=== PATIENT | male | born 1945 | race Caucasian/White ===

== ENCOUNTER 2023-07-25 12:42 | Inpatient (IN) ==
--- NOTE | 2023-07-25 13:04 | Emergency Department Note ---
Impression & Plan Atrial fibrillation with RVR, Elevated troponin, Presence of stent in coronary artery in patient with coronary artery disease, HTN (hypertension), History of left knee replacement ED Provider Note NAME: BERNY OSPINA AGE: 77 SEX: M : 1945 ARRIVES VIA: Walk-In INFORMANT: Patient, ED PROVIDER(S): Carlos A Castellano MD CHIEF COMPLAINT: Chest discomfort, irregular heartbeat MEDICAL DECISION MAKING: Patient presents with chest discomfort and irregular heartbeat. The patient does have A-fib with RVR. Patient does take home metoprolol patient was ordered IV metoprolol, heparin drip as well as IV fluids after reviewing the patient's blood work Blood work shows normal white count mild anemia hemoglobin 12.8 with normal platelet count. Kidney function was unremarkable but with prerenal azotemia. BSG is not elevated. Troponin initially 27.7. This may be demand related patient does not have any chest pain currently at the bedside. Chest x- ray is clear. Patient answered the on-call hospitalist service after conveying the recommendations of the patient. Patient was admitted by Dr. Kelley. Critical Care: I have personally spent 35 minutes of critical care time in direct management of this patient. This includes bedside care, interpretation of diagnostic studies, and testing, discussion with consultants, patient, and family members, and other require inpatient management activities. This 35 minutes is in excess of all separately billable procedures. Discussion w/ other healthcare providers: Dr. Kelley inpatient medicine service Prior /Outside records reviewed: I reviewed the patient's outpatient medication list through his epic records from [facility] Differential diagnosis: Cardiac ischemia, aortic dissection, pulmonary embolism, pneumothorax, pneumonia, pericarditis, myocarditis, GERD, cholecystitis, pancreatitis, musculoskeletal, as well as other pathologies were considered. Diagnostics, as interpreted by me: ECG: A-fib with RVR, rate 145, normal QRS, left axis deviation no obvious ST elevations nonspecific ST wave abnormality noted. Cardiac monitoring: An order was placed for continuous cardiac monitoring. The monitor shows a rate of 122 with tachycardic and irregular irregular rhythm. Patient was placed on pulse oximetry Medical decision rules: [id number] score Imaging studies: I informally interpreted the patient's chest x-ray which does not show obvious pneumothorax with formal report to follow. HPI: Patient presents due to concern for chest discomfort as well as irregular heartbeat. Patient states that last evening he seemed to have some discomfort that his chest that he described as "almost like I was coming down with a chest cold. Patient denies any falls or trauma. The patient denies any cough or fever. Patient has no leg swelling or calf pain. The patient relates that he did have a left TKA completed about 6 weeks ago. The patient recently moved to the area and does obtain the majority of his care through [facility]. The brandin liu had followed with a Dr. Glez in the past with cardiology. Patient does have a prior known history of CAD status post stent placement. He does take baby aspirin PAST MEDICAL HISTORY: CAD, hypertension, hyperlipidemia PAST SURGICAL HISTORY: Coronary angioplasty status post stent SOCIAL HISTORY: Denies alcohol tobacco or drug use. HOME MEDICATIONS: See Below ALLERGIES: See Below VITALS: See Below PHYSICAL EXAMINATION: GENERAL: NAD, non-toxic. EYE EXAM: Normal conjunctiva. PERRL, no anisocoria and EOM's grossly intact w/o pain. OROPHARYNX: Moist mucus membranes, grossly normal dentition. NECK: Supple, no nuchal rigidity, no adenopathy, non-tender. No signs of meningismus. FROM of the neck with good chin to chest and neck extension. No stridor. LUNGS: Clear to auscultation. Normal chest wall mechanics. HEART: Regular irregular and tachycardic, no MRG. ABDOMEN: Abdomen soft, non-tender, no masses, no rebound or guarding. BACK: No CVA TTP. SKIN: No rashes and no bruising. UPPER EXTREMITIES: Upper extremities are grossly normal. LOWER EXTREMITIES: Grossly normal, no edema. Negative Homans' sign bilaterally. NEURO EXAM: A&O x3, cranial nerves II-XII grossly intact, normal speech, moves all 4 extremities. Past Med/Surg History Medical History Atrial fibrillation with RVR BPH (benign prostatic hyperplasia) Elevated troponin HTN (hypertension) Social History Smoking Status: Never smoker Second Hand Exposure: No; Do You Dip or Chew Tobacco: No; Tobacco Cessation Education Requested by Patient: No Hx Alcohol Use: No Hx Substance Use: No Preferred Language: Azeri Communication Ability: Effective Proof Coins Inspector Required: No Beliefs That Will Affect Care: None Current Living Situation: Spouse Other Information That Helps Us Care for You: No Feels Safe at Home: Yes Safety Concerns: Feels Safe At This Time Assistive Devices: Cane and Walker Allergies Allergies Allergy/AdvReac Type Severity Reaction Status Date / Time Penicillins AdvReac Headache Verified 07/25/23 17:54 Home Meds Home Medications Medication Instructions Recorded Confirmed atorvastatin 40 mg tablet 40 mg PO DAILY 07/25/23 07/25/23 celecoxib 200 mg capsule 200 mg PO BID 07/25/23 07/25/23 finasteride 5 mg tablet 5 mg PO DAILY 07/25/23 07/25/23 gabapentin 300 mg capsule 300 mg PO TID 07/25/23 07/25/23 isosorbide mononitrate 60 mg 60 mg PO DAILY 07/25/23 07/25/23 tablet,extended release 24 hr losartan 50 mg tablet 50 mg PO DAILY 07/25/23 07/25/23 metoprolol succinate 25 mg 25 mg PO DAILY 07/25/23 07/25/23 tablet,extended release 24 hr omeprazole 20 mg capsule,delayed 20 mg PO DAILY 07/25/23 07/25/23 release oxycodone 5 mg tablet See Rx Instructions .Route .COMPLEX 07/25/23 07/25/23 tamsulosin 0.4 mg capsule 0.4 mg PO DAILY 07/25/23 07/25/23 Results & Data (ED) Vital Signs Vital Signs - 24 hr 07/25/23 12:45 07/25/23 13:08 07/25/23 13:12 Temperature 36.5 C Temperature Source Temporal Artery Scan Pulse Rate 92 H 132 H Pulse Rate from SpO2 Sensor Respiratory Rate 18 Respiratory Effort / Characteristics Non-Labored Respiratory Depth Normal Respiratory Pattern Regular Blood Pressure 132/79 Blood Pressure Mean 96 Pulse Oximetry 97 95 Oxygen Delivery Method Room Air Room Air Oxygen Flow Rate 0 Sepsis Recent Fever Within 48 Hours No Sepsis New/Unexplained Change in Mental Status N/A Sepsis Action Taken by Nursing No Action Required 07/25/23 13:12 07/25/23 13:30 07/25/23 13:31 Temperature Temperature Source Pulse Rate 143 H Pulse Rate from SpO2 Sensor 86 Respiratory Rate 15 Respiratory Effort / Characteristics Respiratory Depth Respiratory Pattern Blood Pressure 95/64 L Blood Pressure Mean 76 Pulse Oximetry 96 96 Oxygen Delivery Method Room Air Room Air Oxygen Flow Rate Sepsis Recent Fever Within 48 Hours Sepsis New/Unexplained Change in Mental Status Sepsis Action Taken by Nursing 07/25/23 13:31 07/25/23 13:45 07/25/23 14:00 Temperature Temperature Source Pulse Rate 154 H 105 H 102 H Pulse Rate from SpO2 Sensor 79 85 82 Respiratory Rate 19 16 16 Respiratory Effort / Characteristics Respiratory Depth Respiratory Pattern Blood Pressure Blood Pressure Mean Pulse Oximetry 96 96 96 Oxygen Delivery Method Room Air Oxygen Flow Rate Sepsis Recent Fever Within 48 Hours Sepsis New/Unexplained Change in Mental Status Sepsis Action Taken by Nursing 07/25/23 14:01 07/25/23 14:01 07/25/23 14:15 Temperature Temperature Source Pulse Rate 113 H 115 H Pulse Rate from SpO2 Sensor 87 78 Respiratory Rate 17 19 Respiratory Effort / Characteristics Respiratory Depth Respiratory Pattern Blood Pressure 111/75 Blood Pressure Mean 76 Pulse Oximetry 93 95 Oxygen Delivery Method Oxygen Flow Rate Sepsis Recent Fever Within 48 Hours Sepsis New/Unexplained Change in Mental Status Sepsis Action Taken by Nursing 07/25/23 14:20 07/25/23 14:20 07/25/23 14:30 Temperature Temperature Source Pulse Rate 94 H Pulse Rate from SpO2 Sensor 102 H Respiratory Rate 21 Respiratory Effort / Characteristics Respiratory Depth Respiratory Pattern Blood Pressure 127/69 110/73 Blood Pressure Mean 80 91 Pulse Oximetry 96 Oxygen Delivery Method Oxygen Flow Rate Sepsis Recent Fever Within 48 Hours Sepsis New/Unexplained Change in Mental Status Sepsis Action Taken by Nursing 07/25/23 14:30 07/25/23 14:45 07/25/23 14:45 Temperature Temperature Source Pulse Rate 103 H 92 H Pulse Rate from SpO2 Sensor 99 H 82 Respiratory Rate 23 24 Respiratory Effort / Characteristics Respiratory Depth Respiratory Pattern Blood Pressure 114/72 Blood Pressure Mean 94 Pulse Oximetry 96 97 Oxygen Delivery Method Oxygen Flow Rate Sepsis Recent Fever Within 48 Hours Sepsis New/Unexplained Change in Mental Status Sepsis Action Taken by Nursing 07/25/23 15:00 07/25/23 15:00 Temperature Temperature Source Pulse Rate 100 H Pulse Rate from SpO2 Sensor 101 H Respiratory Rate 14 Respiratory Effort / Characteristics Respiratory Depth Respiratory Pattern Blood Pressure 106/77 Blood Pressure Mean 86 Pulse Oximetry 97 Oxygen Delivery Method Oxygen Flow Rate Sepsis Recent Fever Within 48 Hours Sepsis New/Unexplained Change in Mental Status Sepsis Action Taken by Group Home Medications Current Medication List: was personally reviewed by me Laboratory Data Attestation: I reviewed the patient's lab results. 07/25/23 12:55 07/25/23 12:55 Lab Results 07/25/23 07/25/23 07/25/23 Range/Units 12:55 12:55 12:55 WBC 9.52 (4.8-10.8) K/ul RBC 4.26 L (4.70-6.10) M/uL Hgb 12.8 L (14.0-18.0) g/dl Hct 37.5 L (42.0-52.0) % MCV 88.0 (80.0-100.0) fL MCH 30.0 (25.0-34.0) pg MCHC 34.1 (32.0-36.0) g/dL RDW Std Deviation 44.2 (36.4-46.3) fL RDW Coeff of Giovanni 13.7 (11.5-14.5) % Plt Count 359 (130-400) K/uL MPV 9.7 (9.4-12.4) fL Immature Gran % (Auto) 0.2 % Neut % (Auto) 64.0 % Lymph % (Auto) 21.4 % Fannin % (Auto) 9.9 % Eos % (Auto) 3.8 % Baso % (Auto) 0.7 % Neut # (Auto) 6.09 (1.40-6.50) K/uL Lymph # (Auto) 2.04 (1.20-3.40) K/uL Fannin # (Auto) 0.94 H (0.11-0.59) K/uL Eos # (Auto) 0.36 (0.00-0.50) K/uL Baso # (Auto) 0.07 (0.00-0.20) K/uL Immature Gran # (Auto) 0.02 (0.01-0.20) K/uL PT 10.9 (9.0-12.0) Seconds INR 1.0 (0.9-1.1) APTT 26.4 (21.0-31.0) Seconds PTT Ratio 0.9 Sodium 138 (136-145) mmol/L Potassium 4.0 (3.5-5.1) mmol/L Chloride 108 H (98-107) mmol/L Carbon Dioxide 24 (21-32) mmol/L Anion Gap 6 (3-11) BUN 26 H (6-23) mg/dl Creatinine 1.34 (0.6-1.4) mg/dl Est Cr Clr Drug Dosing 50.8 ml/min Est GFR ( Amer) 58.0 ml/min Est GFR (Non-Af Amer) 50.0 ml/min BUN/Creatinine Ratio 19.4 (10-20) Glucose 130 H (70-99(Fasting)) mg/dl Calcium 9.5 (8.6-10.3) mg/dl Magnesium (1.7-2.4) mg/dl Total Bilirubin 0.6 (0.2-1.0) mg/dl AST 16 (13-39) U/L ALT 13 (7-52) U/L Alkaline Phosphatase 95 (34-104) U/L Troponin I High Sens 27.7 H (0-20) pg/ml Total Protein 7.0 (6.0-8.3) gm/dl Albumin 4.1 (3.4-5.0) gm/dl Globulin 2.9 (2.5-4.0) gm/dl Albumin/Globulin Ratio 1.4 (0.9-2) 07/25/23 Range/Units 15:04 WBC (4.8-10.8) K/ul RBC (4.70-6.10) M/uL Hgb (14.0-18.0) g/dl Hct (42.0-52.0) % MCV (80.0-100.0) fL MCH (25.0-34.0) pg MCHC (32.0-36.0) g/dL RDW Std Deviation (36.4-46.3) fL RDW Coeff of Giovanni (11.5-14.5) % Plt Count (130-400) K/uL MPV (9.4-12.4) fL Immature Gran % (Auto) % Neut % (Auto) % Lymph % (Auto) % Fannin % (Auto) % Eos % (Auto) % Baso % (Auto) % Neut # (Auto) (1.40-6.50) K/uL Lymph # (Auto) (1.20-3.40) K/uL Fannin # (Auto) (0.11-0.59) K/uL Eos # (Auto) (0.00-0.50) K/uL Baso # (Auto) (0.00-0.20) K/uL Immature Gran # (Auto) (0.01-0.20) K/uL PT (9.0-12.0) Seconds INR (0.9-1.1) APTT (21.0-31.0) Seconds PTT Ratio Sodium (136-145) mmol/L Potassium (3.5-5.1) mmol/L Chloride (98-107) mmol/L Carbon Dioxide (21-32) mmol/L Anion Gap (3-11) BUN (6-23) mg/dl Creatinine (0.6-1.4) mg/dl Est Cr Clr Drug Dosing ml/min Est GFR ( Amer) ml/min Est GFR (Non-Af Amer) ml/min BUN/Creatinine Ratio (10-20) Glucose (70-99(Fasting)) mg/dl Calcium (8.6-10.3) mg/dl Magnesium 1.9 (1.7-2.4) mg/dl Total Bilirubin (0.2-1.0) mg/dl AST (13-39) U/L ALT (7-52) U/L Alkaline Phosphatase (34-104) U/L Troponin I High Sens 36.4 H (0-20) pg/ml Total Protein (6.0-8.3) gm/dl Albumin (3.4-5.0) gm/dl Globulin (2.5-4.0) gm/dl Albumin/Globulin Ratio (0.9-2) Administered Medications Apixaban (Apixaban 5 Mg Tablet) 5 mg PO Q12H JORGE L Stop: 08/25/23 06:59 Last Admin: 07/26/23 06:50 Dose: 5 mg Documented By: TNK Atorvastatin Calcium (Atorvastatin 40 Mg Tab) 40 mg PO DAILY JORGE L Stop: 08/25/23 08:59 Last Admin: 07/26/23 08:44 Dose: 40 mg Documented By: CA Finasteride (Finasteride 5 Mg Tab) 5 mg PO DAILY JORGE L Stop: 08/25/23 08:59 Last Admin: 07/26/23 08:44 Dose: 5 mg Documented By: CA Gabapentin (Gabapentin 300 Mg Cap) 300 mg PO TID JORGE L Stop: 08/24/23 20:59 Last Admin: 07/26/23 08:43 Dose: 300 mg Documented By: Admin: 07/25/23 20:13 Dose: 300 mg Documented By: KAMRYN Isosorbide Mononitrate (Isosorbide Fannin Extended Rel 60 Mg Tabcr) 60 mg PO DAILY JORGE L Stop: 08/25/23 08:59 Last Admin: 07/26/23 08:43 Dose: 60 mg Documented By: CA Losartan Potassium (Losartan Potassium 50 Mg Tab) 50 mg PO DAILY JORGE L Stop: 08/25/23 08:59 Last Admin: 07/26/23 08:43 Dose: 50 mg Documented By: CA Metoprolol Succinate (Metoprolol Succ 50mg Ext Rel Tab) 150 mg PO DAILY JORGE L Stop: 08/25/23 08:59 Last Admin: 07/26/23 08:43 Dose: 150 mg Documented By: VINOD Pantoprazole Sodium (Pantoprazole 40 Mg Tab) 40 mg PO DAILY [facility] Stop: 08/25/23 08:59 Last Admin: 07/26/23 08:43 Dose: 40 mg Documented By: VINOD Tamsulosin HCl (Tamsulosin Hcl 0.4 Mg Cap) 0.4 mg PO DAILY [facility] Stop: 08/25/23 08:59 Last Admin: 07/26/23 08:43 Dose: 0.4 mg Documented By: VINOD Discontinued Medications Heparin Sodium/Dextrose (Heparin Iv Adult Wt-Based Standard *No* Bolus Protocol) 1 each IV ONE ONE; Protocol Stop: 07/25/23 13:50 Last Admin: 07/25/23 14:29 Dose: 1 each Documented By: RAFAEL Sodium Chloride (Nss) 500 mls @ 999 mls/hr IV .Q31M ONE Stop: 07/25/23 14:19 Last Infusion: 07/25/23 15:00 Dose: 0 mls/hr Documented By: Admin: 07/25/23 14:29 Dose: 999 mls/hr Documented By: RAFAEL Heparin Sodium/Dextrose (Heparin Sodium/Dextrose) 25,000 units in 500 mls @ 29 mls/hr IV .[id number] [facility]; Protocol Stop: 07/26/23 07:00 Last Titration: 07/26/23 06:47 Dose: 0 units/hr, 0 mls/hr Documented By: KAMRYN Co-signed By: MANINDER Titration: 07/26/23 05:25 Dose: 1,450 units/hr, 29 mls/hr Documented By: KAMRYN Co-signed By: ARR Titration: 07/25/23 22:10 Dose: 1,450 units/hr, 29 mls/hr Documented By: KAMRYN Co-signed By: ARR Titration: 07/25/23 18:57 Dose: 1,450 units/hr, 29 mls/hr Documented By: VINOD Co-signed By: ANNEK Admin: 07/25/23 14:29 Dose: 1,450 units/hr, 29 mls/hr Documented By: RAFAEL Co-signed By: MMYolanda Magnesium Sulfate/Dextrose (Magnesium Sulfate / D5w) 1 gm in 100 mls @ 50 mls/hr IV ONE ONE Stop: 07/25/23 19:38 Last Infusion: 07/25/23 20:34 Dose: 0 mls/hr Documented By: Admin: 07/25/23 18:25 Dose: 50 mls/hr Documented By: VINOD Miscellaneous (Heparin Drip - Stop Order) 1 each N/A ONE ONE Stop: 07/26/23 07:01 Last Admin: 07/26/23 06:50 Dose: 1 each Documented By: KAMRYN Imaging Data Radiologist's Impression: Chest X-Ray 07/25/23 12:48 XR chest 1V portable CLINICAL HISTORY: Chest pain, nonspecific TECHNIQUE: Single frontal radiograph of the chest was obtained. Comparison: None available at the time of this dictation. FINDINGS: No lines and tubes are seen. The cardiomediastinal silhouette is normal. The lungs are clear. No evidence of pleural effusion or pneumothorax. IMPRESSION: No acute chest disease. ACT 112: Negative or not required by law. Electronically signed by: Scotty Oseguera M.D. 07/25/2023 2:11 PM Discharge Plan Visit Data Chief Complaint: Cardiac Assessment Stated Complaint: HEART RACING SINCE THIS MORNING ED Provider: Carlos A Castellano Discharge Problem: Atrial fibrillation with RVR, Elevated troponin, Presence of stent in coronary artery in patient with coronary artery disease, HTN (hypertension), History of left knee replacement Patient Disposition: Admitted As Inpatient Discharge Instructions Interventions: ED Discharge Assessment Last Done: 07/25/23 16:02
[2023-07-25 13:10] LABS: Basophils # (auto) 0.07 K/uL (0.00-0.20); Basophils % (auto) 0.7 %; Eosinophils # (auto) 0.36 K/uL (0.00-0.50); Eosinophils % (auto) 3.8 %; Hematocrit (blood only) 37.5 % (42.0-52.0); Hemoglobin 12.8 g/dl (14.0-18.0); Immature Granulocytes # (auto) 0.02 K/uL (0.01-0.20); Immature Granulocytes % (auto) 0.2 %; Lymphocytes # (auto) 2.04 K/uL (1.20-3.40); Lymphocytes % (auto) 21.4 %; Mean Corpuscular Hgb Conc 34.1 g/dL (32.0-36.0); Mean Platelet Volume 9.7 fL (9.4-12.4); Monocytes # (auto) 0.94 K/uL (0.11-0.59); Monocytes % (auto) 9.9 %; Neutrophils # (auto) 6.09 K/uL (1.40-6.50); Platelet Count 359 K/uL (130-400); RDW Coefficient of Variation 13.7 % (11.5-14.5); RDW Standard Deviation 44.2 fL (36.4-46.3); Red Blood Count 4.26 M/uL (4.70-6.10); White Blood Count 9.52 K/ul (4.8-10.8)
[2023-07-25 13:26] LABS: Albumin Globulin Ratio 1.4 (0.9-2); Albumin Level 4.1 gm/dl (3.4-5.0); BUN Creatinine Ratio 19.4 (10-20); Bilirubin,Total 0.6 mg/dl (0.2-1.0); Calcium 9.5 mg/dl (8.6-10.3); Creatinine Clr Calc Pharmacy 50.8 ml/min; Globulin 2.9 gm/dl (2.5-4.0)
[2023-07-25 13:35] LABS: Troponin I High Sensitivity 27.7 pg/ml (0-20)
[2023-07-25 13:49] LABS: Partial Thromboplastin Ratio 0.9; Partial Thromboplastin Time 26.4 Seconds (21.0-31.0); Prothrombin Time 10.9 Seconds (9.0-12.0)
[2023-07-25] MEDS ORDERED: SODIUM CHLORIDE 0.9% 500 ML IV ONE (13:49)
[2023-07-25] MEDS ORDERED: METOPROLOL TARTRATE 1 MG/ML VIAL IV PRN (13:49)
[2023-07-25] MEDS ORDERED: Heparin IV Adult Wt-Based Standard *NO* Bolus Protocol IV ONE (13:49)
--- NOTE | 2023-07-25 14:12 | XRay Report ---
XR chest 1V portable CLINICAL HISTORY: Chest pain, nonspecific TECHNIQUE: Single frontal radiograph of the chest was obtained. Comparison: None available at the time of this dictation. FINDINGS: No lines and tubes are seen. The cardiomediastinal silhouette is normal. The lungs are clear. No evid ence of pleural effusion or pneumothorax. IMPRESSION: No acute chest disease. ACT 112: Negative or not required by law. Electronically signed by: Scotty Oseguera M.D. 07/25/2023 2:11 PM
[2023-07-25] MEDS ORDERED: HEPARIN SODIUM/DEXTROSE 25,000 UNITS/500 ML BAG IV SCH (14:15)
--- NOTE | 2023-07-25 14:41 | History & Physical Report ---
Date of Service July 25, 2023 Assessment & Plan (1) Atrial fibrillation with RVR: Plan: New onset A-fib with RVR Patient takes metoprolol succinate 100 mg every morning for history of CAD with PCI which was performed at [facility] as noted No prior history of A-fib [id number] of 3 Denies tobacco use, alcohol use, SHELLEY. Patient had a sensation of chest discomfort but not pressure/pain in which was different in quality than with his prior ischemic pain. He has had no exertional angina/dyspnea or angina at rest in the preceding weeks. Does take aspirin daily Started on heparin in ER. Patient is a Eliquis candidate, will transition tomorrow morning We will increase metoprolol to 150 mg every morning, additional 5 mg dose given for acute rate control If inadequate rate control with metoprolol may add adjunct diltiazem as long as preserved EF is confirmed on echo. - Mg pending, if low --> +2g (2) Presence of stent in coronary artery in patient with coronary artery disease: Plan: No history of CHF per patient. No known reduced ejection fraction. PCI was performed at [facility], records requested Aspirin daily, atorvastatin, metoprolol as noted, losartan as noted Echo pending for new A-fib and elevated troponin (3) Elevated troponin: Plan: Without territorial ST elevations. A-fib RVR on admission. Suspect mild increase with demand ischemia. Patient is pain-free at time of admission evaluation. Troponin trended, echo pending. (4) HTN (hypertension): Plan: Continue losartan (5) BPH (benign prostatic hyperplasia): Plan: Continue finasteride/tamsulosin DVT prophylaxis: Anticoagulated Disposition: PCU CODE: Full Diet: HH (6) History of left knee replacement: Plan: History of left knee replacement 6 weeks ago. Patient was on aspirin twice daily for 1 month and then transition back to aspirin daily. He has not had any left leg swelling/edema/pain/asymmetry Is at slightly increased risk for blood clots/PE, but does not show signs of lower extremity DVT. No pleuritic pain or hypoxia. Patient is already initiating anticoagulation for A-fib History of Present Illness Primary Care Provider: SAMANTHA Shah is a 77-year-old male who presents with new onset A-fib with RVR with improved rate control following fluids and metoprolol. Initial EKG A-fib with rate 145 No acute findings on chest x-ray No hypoxia High sensitive troponin 27.7, repeat pending No leukocytosis Per Pt This morning woke up in bed and felt like he had a little tightness and fluttering in his chest 'like I had a cold.' Got up and checked his blood pressure and the automated machine was reporting an erratic, fast HR. He came to the ER for evaluation. He provides a med list at bedside --> Metoprolol 100mg sucinate AM Asa 81mg BID since knee surgery, normally on once daily --> back to once a day Isosorbite 120mg daily Flomax daily .4 Finasteride 5mg daily Omeprazole 20mg daily Losartan 50mg tablets Atorvastatin 40mg Denies anginal pain with exterion. No angina at rest. Endorses a history of CAD with 1x stent 10 years ago. Stend was done at [facility]. Took his medications this morning 6 weeks ago had L knee replacement, doing well no longer on pain medicines. No leg edema or leg pain since. Was on aspirin twice daily for 1 month and has transition back to aspirin daily Family PCP is DR. Givens in [facility]. Recently moved to [place], needs a new PCP in the area. 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 NAD. Cooperative. HEENT: Atraumatic, normocephalic. Vision and hearing grossly intact Pulm: CTAB A&P. -wheezes, -rales, -rhonchi. Symmetrical chest rise. No increased work of breathing. No respiratory distress. Cardiac: Irregularly irregular, tachycardic ranging [id number], -mrg. Radial pulses intact and symmetrical. Abdominal: Nontender, nondistended, soft. BS present. Extremities: Warm and dry. Sensation intact in the feet bilaterally. No calf asymmetry/ankle edema Results & Data Results & Data Vital Signs (Past 12 Hours) Vital Signs Temp Pulse Resp BP Pulse Ox O2 Del Method O2 Flow Rate 07/25/23 14:20 127/69 07/25/23 14:20 94 H 21 96 07/25/23 14:15 115 H 19 95 07/25/23 14:01 111/75 07/25/23 14:01 113 H 17 93 07/25/23 14:00 102 H 16 96 07/25/23 13:45 105 H 16 96 07/25/23 13:31 154 H 19 96 Room Air 07/25/23 13:31 95/64 L 07/25/23 13:30 143 H 15 96 Room Air 07/25/23 13:12 96 Room Air 07/25/23 13:12 95 Room Air 0 07/25/23 13:08 132 H 07/25/23 12:45 36.5 C 92 H 18 132/79 97 Room Air PG Care Time/CCT Total # of Minutes Spent Total Time Spent with Patient: Total time spent is greater than 50% in coordination of care (as documented) at patient's floor/unit and/or counseling patient: Coding Level of Care Code 39624 INT INP/OBS CARE 3/75MIN Diagnoses Atrial fibrillation with RVR I48.91 Presence of stent in coronary artery in patient with coronary artery disease I25.10; Z95.5 Elevated troponin R79.89 HTN (hypertension) I10 BPH (benign prostatic hyperplasia) N40.0 History of left knee replacement Z96.652
[2023-07-25 15:49] LABS: Magnesium 1.9 mg/dl (1.7-2.4)
[2023-07-25 15:55] LABS: Troponin I High Sensitivity 36.4 pg/ml (0-20)
[2023-07-25] MEDS ORDERED: ACETAMINOPHEN 325 MG TAB PO PRN (16:33)
[2023-07-25] MEDS ORDERED: INFLUENZA VACCINE HIGH-DOSE (HD-IIV4) PF 65+ 0.7mL SYR IM ONE (16:49)
[2023-07-25] MEDS ORDERED: Patient's ALLERGY Info needs ENTERED SCH (17:00)
[2023-07-25] MEDS ORDERED: MAGNESIUM SULFATE / D5W 1 GM/100 ML BAG IV ONE (17:39)
[2023-07-25] MEDS: GABAPENTIN 300 MG CAP PO SCH (20:13)
[2023-07-25 22:01] LABS: Partial Thromboplastin Ratio 1.6
[2023-07-25 22:02] LABS: Partial Thromboplastin Time 46.5 Seconds (21.0-31.0)
[2023-07-26 04:18] LABS: Basophils # (auto) 0.07 K/uL (0.00-0.20); Basophils % (auto) 0.7 %; Eosinophils # (auto) 0.54 K/uL (0.00-0.50); Eosinophils % (auto) 5.5 %; Hemoglobin 11.3 g/dl (14.0-18.0); Immature Granulocytes # (auto) 0.03 K/uL (0.01-0.20); Immature Granulocytes % (auto) 0.3 %; Lymphocytes # (auto) 2.87 K/uL (1.20-3.40); Lymphocytes % (auto) 29.5 %; Mean Corpuscular Hemoglobin 29.7 pg (25.0-34.0); Mean Corpuscular Hgb Conc 33.2 g/dL (32.0-36.0); Mean Corpuscular Volume 89.2 fL (80.0-100.0); Mean Platelet Volume 9.9 fL (9.4-12.4); Monocytes # (auto) 0.75 K/uL (0.11-0.59); Monocytes % (auto) 7.7 %; Neutrophils # (auto) 5.48 K/uL (1.40-6.50); Neutrophils % (auto) 56.3 %; Platelet Count 311 K/uL (130-400); RDW Coefficient of Variation 13.7 % (11.5-14.5); RDW Standard Deviation 44.7 fL (36.4-46.3); Red Blood Count 3.81 M/uL (4.70-6.10); White Blood Count 9.74 K/ul (4.8-10.8)
[2023-07-26 04:23] LABS: BUN Creatinine Ratio 19.2 (10-20); Calcium 8.6 mg/dl (8.6-10.3); Creatinine Clr Calc Pharmacy 56.6 ml/min; Est GFR (African American) 66.3 ml/min; Est GFR (Non-African American) 57.2 ml/min; Potassium 4.1 mmol/L (3.5-5.1)
[2023-07-26 04:52] LABS: Partial Thromboplastin Ratio 2.2
[2023-07-26 05:21] LABS: Partial Thromboplastin Time 60.7 Seconds (21.0-31.0)
[2023-07-26] MEDS ORDERED: APIXABAN 5 MG TABLET PO SCH ×2 (07:00→09:00)
--- NOTE | 2023-07-26 07:11 | Hospitalist Progress Note ---
Date of Service July 26, 2023 Assessment & Plan Plan New onset A-fib with RVR Patient takes metoprolol succinate 100 mg every morning for history of CAD with PCI which was performed at [facility] as noted No prior history of A-fib [id number] of 3 Denies tobacco use, alcohol use, SHELLEY. Patient had a sensation of chest discomfort but not pressure/pain in which was different in quality than with his prior ischemic pain. He has had no exertional angina/dyspnea or angina at rest in the preceding weeks. Does take aspirin daily Started on heparin in ER. Patient is a Eliquis candidate, will transition tomorrow morning We will increase metoprolol to 150 mg every morning, additional 5 mg dose given for acute rate control If inadequate rate control with metoprolol may add adjunct diltiazem as long as preserved EF is confirmed on echo. - Mg pending, if low --> +2g Presence of stent in coronary artery in patient with coronary artery disease No history of CHF per patient. No known reduced ejection fraction. PCI was performed at [facility], records requested Aspirin daily, atorvastatin, metoprolol as noted, losartan as noted Echo pending for new A-fib and elevated troponin Elevated troponin Without territorial ST elevations. A-fib RVR on admission. Suspect mild increase with demand ischemia. Patient is pain-free at time of admission evaluation. Troponin trended, echo pending. HTN (hypertension) Continue losartan BPH (benign prostatic hyperplasia) Continue finasteride/tamsulosin DVT prophylaxis: Anticoagulated Disposition: PCU CODE: Full Diet: History of left knee replacement History of left knee replacement 6 weeks ago. Patient was on aspirin twice daily for 1 month and then transition back to aspirin daily. He has not had any left leg swelling/edema/pain/asymmetry Is at slightly increased risk for blood clots/PE, but does not show signs of lower extremity DVT. No pleuritic pain or hypoxia. Patient is already initiating anticoagulation for A-fib Admission and Anticipated Discharge Date Admission Date: July 25, 2023 Review of Systems Review of Systems: As per above Results & Data Results & Data Vital Signs (Past 12 Hours) Vital Signs Temp Pulse Pulse Resp BP Pulse Ox O2 Del Method 07/26/23 02:59 36.5 C 57 L 16 132/69 98 Room Air 07/25/23 19:47 71 07/25/23 21:58 64 07/25/23 22:54 36.5 C 68 18 121/67 97 Room Air Resident Activity Tracking Resident Involvement: Resident Care Provided Care Provided: Adult Hospital Medicine
[2023-07-26] MEDS: GABAPENTIN 300 MG CAP PO SCH (08:43)
[2023-07-26] MEDS ORDERED: ISOSORBIDE MONO EXTENDED REL 60 MG TABCR PO SCH (09:00)
[2023-07-26] MEDS ORDERED: PANTOprazole 40 MG TAB PO SCH (09:00)
[2023-07-26] MEDS ORDERED: ATORVASTATIN 40 MG TAB PO SCH (09:00)
[2023-07-26] MEDS ORDERED: FINASTERIDE 5 MG TAB PO SCH (09:00)
[2023-07-26] MEDS ORDERED: LOSARTAN POTASSIUM 50 MG TAB PO SCH (09:00)
[2023-07-26] MEDS ORDERED: METOPROLOL SUCC 50MG EXT REL TAB PO SCH (09:00)
[2023-07-26] MEDS ORDERED: TAMSULOSIN HCL 0.4 MG CAP PO SCH (09:00)
--- NOTE | 2023-07-26 13:48 | Discharge Summary ---
Date of Service July 26, 2023 Admission HPI Per Admitting Provider Pablo is a 77-year-old male who presents with new onset A-fib with RVR with improved rate control following fluids and metoprolol. Initial EKG A-fib with rate 145 No acute findings on chest x-ray No hypoxia High sensitive troponin 27.7, repeat pending No leukocytosis Per Pt This morning woke up in bed and felt like he had a little tightness and fluttering in his chest 'like I had a cold.' Got up and checked his blood pressure and the automated machine was reporting an erratic, fast HR. He came to the ER for evaluation. He provides a med list at bedside --> Metoprolol 100mg sucinate AM Asa 81mg BID since knee surgery, normally on once daily --> back to once a day Isosorbite 120mg daily Flomax daily .4 Finasteride 5mg daily Omeprazole 20mg daily Losartan 50mg tablets Atorvastatin 40mg Denies anginal pain with exterion. No angina at rest. Endorses a history of CAD with 1x stent 10 years ago. Stend was done at [facility]. Took his medications this morning 6 weeks ago had L knee replacement, doing well no longer on pain medicines. No leg edema or leg pain since. Was on aspirin twice daily for 1 month and has transition back to aspirin daily Family PCP is DR. Grier in [facility]. Recently moved to [place], needs a new PCP in the area. No sleep apnea Former tobacco use in remission EtoH many years ago, none recently Allergic to PCN --> Severe headache Principal Diagnosis Atrial fibrillation with RVR Discharge Exam Constitutional WD/WN, vitals as above Eyes + anicteric sclerae; no conjunctival abnormality ENMT Ears: no external ear abnormality Nose: no external nose abnormality Moist mucous membranes Respiratory normal respiratory effort, lungs clear to auscultation Cardiovascular Rate/Rhythm: regular rate and regular rhythm Extremities: no edema Gastrointestinal (Abdomen) normal bowel sounds, soft, nontender, no hepatosplenomegaly Skin no rashes, warm and dry Psychiatric A+Ox3, euthymic affect Discharge Data Allergies Allergy/AdvReac Type Severity Reaction Status Date / Time Penicillins AdvReac Headache Verified 07/25/23 17:54 Consultations 07/25/23 14:12 ED Decision to Admit Stat Hospital Course (1) History of left knee replacement: (2) Elevated troponin: (3) Atrial fibrillation with RVR: Plan New onset A-fib with RVR Patient takes metoprolol succinate 100 mg every morning for history of CAD with PCI which was performed at [facility]. No prior history of A-fib, [id number] VASc of 3. Increased Metoprolol to 100mg, rate became controlled at rhythm converted to sinus rhythm. Initially started on heparin in ER, transitioned to Eliquis. Echo obtained, results pending at time of discharge. Will have patient establish with PCP at [facility] and will help coordinate local translator. Presence of stent in coronary artery in patient with coronary artery disease No history of CHF per patient. No known reduced ejection fraction. PCI was performed at [facility]. Aspirin daily, atorvastatin, metoprolol as noted, losartan as noted Elevated troponin Without territorial ST elevations. A-fib RVR on admission. Suspect mild increase with demand ischemia. Patient is pain-free at time of admission evaluation. Troponin trended. HTN (hypertension) Continue losartan BPH (benign prostatic hyperplasia) Continue finasteride/tamsulosin History of left knee replacement History of left knee replacement 6 weeks ago. Patient was on aspirin twice daily for 1 month and then transition back to aspirin daily. He has not had any left leg swelling/edema/pain/asymmetry Is at slightly increased risk for blood clots/PE, but does not show signs of lower extremity DVT. No pleuritic pain or hypoxia. Patient is already initiating anticoagulation for A-fib Total Time Total Time Spent Total Time Spent (In Minutes): <30 Discharge Plan Discharge Items Patient Disposition: Home - Self-Care Reason For Visit: AFIB RVR Discharge Diagnosis: Afib with RVR Activity: Per Instructions section Non-emergency contact: Primary Care Provider Call non-emergency contact if: you have any medication questions and your symptoms worsen Follow-up/Referrals: SAMANTHA GRIER [Other] Diet: Heart Healthy Addtl Attending Provider Instructions: You were admitted to the hospital for atrial fibrillation with RVR. You were treated with with an increased dosage of metoprolol to help control your heart rate and your rhythm returned to a normal ("sinus") rhythm. As we discussed, you heart may intermittently switch between sinus rhythm and atrial fibrillation without you noticing and any time that your heart is in atrial fibrillation you have an increased risk of developing a blood clot- this is why we need to have you taking a blood thinner medication (Eliquis). Follow-up appointments We will have the [facility] office contact you to schedule a hospital discharge follow up appointment/establish care visit. -If you have not received a call from the office by temo, please call [phone] Medications Your medication list has been reviewed and reconciled upon discharge to ensure accuracy and continuity of care. An updated list of all your medications is included with your hospital discharge paperwork. Please review this list closely, and make note of any changes. We sent a new medication called Eliquis to your pharmacy. Take Eliquis (5mg) 1 tablet every 12 hours. We sent a new dosage of Metoprolol Succinate (Toprol XL) to your pharmacy. Take Toprol XL (150mg) [3 tablets of 50mg] once daily. CALL 911 OR GO TO THE EMERGENCY DEPARTMENT if you experience any of the following: Sudden, severe abdominal pain or nausea/vomiting Severe chest pain, or chest pain that radiates (moves) to your jaw or arm Sudden, severe shortness of breath or difficulty breathing Thank you for allowing us to participate in your care. Pending Studies at Discharge: No Stand-Alone Forms: [facility], Smoking Cessation Medications and DC Order Prescriptions: New Eliquis 5 mg Tablet 5 mg PO Q12H 30 Days Qty: 60 0RF metoprolol succinate 50 mg Tablet Extended Release 24 Hr 150 mg PO DAILY 30 Days Qty: 90 0RF Continued losartan 50 mg tablet 50 mg PO DAILY atorvastatin 40 mg tablet 40 mg PO DAILY isosorbide mononitrate 60 mg tablet extended release 24 hr 60 mg PO DAILY tamsulosin 0.4 mg capsule 0.4 mg PO DAILY gabapentin 300 mg capsule 300 mg PO TID omeprazole 20 mg capsule,delayed release(DR/EC) 20 mg PO DAILY finasteride 5 mg tablet 5 mg PO DAILY oxycodone 5 mg tablet See Rx Instructions .ROUTE .COMPLEX Rx Instructions: (filled 06/11/23, 5 ds) as directed Discontinued celecoxib 200 mg capsule 200 mg PO BID Rx Instructions: filled 06/11/23 for 14 ds metoprolol succinate 25 mg tablet extended release 24 hr 25 mg PO DAILY Discharge Orders: Discharge Order (Routine); Ordered 07/26/23 Ordered By: Maddison Carl Admission Data Admit Date/Time: 07/25/23 15:09 Attending Provider: Ric Edward Admit Provider: Robert Kelley Primary Care Provider: SAMANTHA GRIER Other Providers: Robert Kelley Other Interventions: Discharge Summary Assessment (RN) Last Done: 07/26/23 13:44 Supervising Physician Co-Signing Physician Notes I personally examined the patient and verified all bui points of history and exam, discussed case, and agree with decision making with Dr Carl Feeling better. Extensive discussion on atrial fibrillation, management, etc. After discussing, he expressed understanding of having a look at this as paroxysmal atrial fibrillation rather than simply an episode that went awayparticularly as it relates to stroke prophylaxis. Vitals noted, in general he is awake and alert pleasant no distress. On rhythm he converted to sinus rhythm yesterday evening and has been rate controlled/sinus rhythm since. Breathing unlabored no accessory muscle use good effort. Skin shows no rashes no pallor or icterus. Neuro without focal deficits. Echocardiogram noted new onset atrial fibrillation with RVRnow converted back to sinus rhythm. Metoprolol for rate control (he notes that his translator prior to moving had recently reduced his dose of metoprolol due to his heart rates being somewhat lowwe discussed that this can be a bit of a "moving target" but most of the time is not a very brittle/delicate balance)outpatient follow-up for this. Eliquis for stroke prophylaxis (discussed cost/coverage issues and was able to give him coupon cards for now, and discussed that really for his purposes any of the direct oral anticoagulants would be more or less equivalent, so while we are starting with Eliquis, if cost/coverage becomes an issue, a lateral move to a different direct oral anticoagulant would likely be able to be explored). - We will want to obtain old records as an outpatient from his prior translator in regards to his LVH and mitral regurgitationI suspect these are chronic but obviously "new to us" - outpatient evaluation for if undiagnosed sleep apnea may also be a driving factor for the atrial fibrillation - being set up with local PCP Resident Activity Tracking Resident Involvement: Resident Care Provided Care Provided: Adult [facility]
--- NOTE | 2023-07-26 15:15 | XCELERA ---
[id number]
--- NOTE | 2023-07-26 18:17 | Billing Data ---
Date of Service July 26, 2023 Coding Level of Care Code 90476 IN/OBS DISCH 30 MIN/LESS
--- NOTE | 2023-07-28 06:18 | Electrocardiogram Report ---
Test Reason : Blood Pressure : / mmHG Vent. Rate : 145 BPM Atrial Rate : 000 BPM P-R Int : 000 ms QRS Dur : 096 ms QT Int : 298 ms P-R-T Axes : 000 -19 094 degrees QTc Int : 462 ms Atrial fibrillation with rapid ventricular response Minimal voltage criteria for LVH, may be normal variant ( R in aVL ) Nonspecific ST and T wave abnormality Abnormal ECG No previous ECGs available Confirmed by Azam Ramirez ([id number]) on 07/28/2023 6:18:40 AM Referred By: REFERRED SELF Confirmed By:Azam Ramirez
== END 2023-07-26 14:24 | disposition home or self-care (01) | DRG 310 ==
LOC: ED 12:42 → INTOOBSV 15:09 → SUATTDRO 15:09 → 2E 15:09 → OBSVTOIN 15:09 → 2E 16:02

== ENCOUNTER 2024-03-09 14:19 | Observation (INO) ==
--- NOTE | 2024-03-09 14:34 | ED Triage Note ---
Date of Service March 09, 2024 Provider in Triage Author: Michelle Bustos History of Present Illness This patient was briefly evaluated while in triage. An abbreviated physical exam was performed. This patient is a 78-year-old Male who presents to the ED for evaluation of weakness in his right arm and leg. He was in the shower and lost his balance. He tried to get out of the shower but felt like his right arm and leg are weak. Patient states he is currently feeling slightly foggy and "not like himself." He states the strength in his right side is back. The weakness lasted for about 30 minutes. Physical Exam GENERAL: Non-toxic and in no acute distress. HEENT: Pupils equal. No obvious scleral icterus. HEART: Regular rate and rhythm. LUNGS: Clear to auscultation. No accessory muscle use. NEURO: Alert and oriented. No obvious neurological deficits on quick neuro exam. MUSCULOSKELETAL: Strength equal in bilateral upper extremities. Initial orders for labs and / or imaging were placed and patient was placed in the waiting area until a bed is available. Please see further documentation for the full ED course.
[2024-03-09] MEDS: OPTIRAY 320 125ml IV ONE (14:50)
[2024-03-09 14:55] LABS: Basophils # (auto) 0.05 K/uL (0.00-0.20); Basophils % (auto) 0.5 %; Eosinophils % (auto) 2.2 %; Hematocrit (blood only) 40.7 % (42.0-52.0); Hemoglobin 13.6 g/dl (14.0-18.0); Immature Granulocytes # (auto) 0.02 K/uL (0.01-0.20); Immature Granulocytes % (auto) 0.2 %; Lymphocytes # (auto) 2.02 K/uL (1.20-3.40); Lymphocytes % (auto) 22.2 %; Mean Corpuscular Hgb Conc 33.4 g/dL (32.0-36.0); Mean Corpuscular Volume 89.6 fL (80.0-100.0); Monocytes % (auto) 7.7 %; Neutrophils # (auto) 6.11 K/uL (1.40-6.50); Neutrophils % (auto) 67.2 %; Platelet Count 237 K/uL (130-400); Red Blood Count 4.54 M/uL (4.70-6.10)
[2024-03-09 14:59] LABS: iSTAT Creatinine 1.4 mg/dl (0.6-1.3); iSTAT Hemoglobin 13.9 g/dl (14.0-18.0); iSTAT Ionized Calcium 1.25 mmol/l (1.12-1.32); iSTAT Potassium 4.2 mmol/L (3.3-5.0)
--- NOTE | 2024-03-09 15:06 | CT Scan Report ---
CT OF THE HEAD WITHOUT CONTRAST CLINICAL HISTORY: Right-sided weakness. COMPARISON STUDY: No previous studies for comparison. TECHNIQUE: Helical axial images of the head were obtained without IV contrast. Automated exposure con trol was utilized for the study. A dose lowering technique was utilized adhering to the principles o f ALARA. FINDINGS: No acute intracranial hemorrhage, midline shift or mass effect is present. The ventricular system is unremarkable. The basal cisterns are patent. No extra-axial collections are present. There are no findings to suggest acute dural sinus thrombosis or acute territorial infarct. No significant calvarial abnormalities are present. Visualized portions of the sinuses and mastoid air cells are clark ar. IMPRESSION: No acute intracranial findings. ACT 112: Negative or not required by law. Electronically signed by: Mina Yap M.D. 03/09/2024 3:04 PM
--- NOTE | 2024-03-09 15:09 | Emergency Department Note ---
Impression & Plan TIA (transient ischemic attack), Elevated troponin ED Provider Note NAME: BERNY OSPINA AGE: 78 SEX: M : 1945 ARRIVES VIA: Walk-In INFORMANT: Patient ED PROVIDER(S): Ric Mireles DO CHIEF COMPLAINT: Right-sided weakness HPI: Patient is an 78-year-old male with a past medical history of A-fib with RVR on Eliquis has not missed any doses who presents to the ER for right arm and right leg weakness which occurred around 130 today. It lasted for about an hour. He is completely back to baseline. He denies any headache or change in vision. No chest pain or shortness of breath. No nausea, vomiting or diarrhea. No dysuria, urgency or frequency. No previous strokes. He has never had anything like this before. ADDITIONAL HISTORY OBTAINED: Per HPI Chronic Medical/Social Conditions Affecting Care: Per HPI PAST MEDICAL HISTORY:See Below PAST SURGICAL HISTORY:See Below FAMILY HISTORY:See Below SOCIAL HISTORY:See Below HOME MEDICATIONS:See Below ALLERGIES:See Below VITALS:See Below PHYSICAL EXAMINATION: GENERAL: Sitting up in bed, alert, well appearing, well nourished, no distress, non-toxic EYE EXAM: normal conjunctiva. PERRL and EOM's intact. OROPHARYNX: no exudate, no erythema, lips, buccal mucosa, and tongue normal and mucous membranes are moist NECK: supple, no nuchal rigidity, no adenopathy, non-tender LUNGS: Clear to auscultation. Normal chest wall mechanics HEART: no murmurs, S1 normal and S2 normal ABDOMEN: abdomen soft, non-tender, normo-active bowel sounds, no masses, no rebound or guarding. BACK: Back is symmetrical on inspection and there is no deformity, no midline tenderness, no CVA tenderness. SKIN: no rashes and no bruising UPPER EXTREMITIES: upper extremities are grossly normal. LOWER EXTREMITIES: No pitting edema. NEURO EXAM: Normal sensorium, cranial nerves II-XII intact, normal speech, no weakness of arms, no weakness of legs. No drift. Finger to nose intact. Gross sensation intact. Ajwi-af-cacu intact. Rapid alternating movements of upper extremities intact MEDICAL DECISION MAKING: Patient is an 78-year-old male who presents ER for right sided weakness which occurred earlier today and resolved. NIH is 0. Not a TNK candidate. Labs show no significant leukocytosis or anemia. INR unremarkable. BMP unremarkable as well. Troponin slightly elevated. CT angios of the head and neck showed no acute pathology. Patient was updated bedside discussed with the hospitalist for further evaluation management treatment. Consults/Care Managements Discussions: Per [facility] Triage Nursing notes reviewed. Limited review of prior medical records performed Vital Signs: reviewed and remarkable for HTN Differential diagnosis: Differential Diagnosis includes but is not limited to ischemic Stroke, hemorrhagic stroke, bells palsy, mass, neoplasm, migraine headache, seizure, subarachnoid hemorrhage, TIA, and transient global amnesia. ER treatment provided: See below Diagnostics interpreted by me include EKG and cardiac monitoring as listed below: -Cardiac Monitoring: An order was placed for continuous cardiac monitoring. The monitor shows a rate of 68 with sinus rhythm. -ECG: Sinus rhythm rate of 59 Left axis No PVCs QTc 413 -Laboratory studies:Interpreted by me as stated above in MDM and shown below. Imaging studies: Xrays: As interpreted by me: Portable AP upright 1 view of the chest shows no focal infiltrate CTs show: CT angios of the head and neck as described above Procedures:none Critical Care: None Past Med/Surg History Problem List (Updated 03/09/24 @ 20:55 by Ric Mireles DO) TIA (transient ischemic attack) (Acute) Afib Stroke-like symptoms History of left knee replacement (Acute) Elevated troponin (Acute) Atrial fibrillation with RVR (Acute) BPH (benign prostatic hyperplasia) HTN (hypertension) (Acute) Presence of stent in coronary artery in patient with coronary artery disease (Acute) Medical History Atrial fibrillation with RVR BPH (benign prostatic hyperplasia) Elevated troponin HTN (hypertension) Social History Smoking Status: Former smoker Second Hand Exposure: No; Do You Dip or Chew Tobacco: No; Hx Alcohol Use: No Hx Substance Use: No Preferred Language: German Communication Ability: Effective Geotechnical Intern Required: No Beliefs That Will Affect Care: None Current Living Situation: Spouse Other Information That Helps Us Care for You: No Feels Safe at Home: Yes Safety Concerns: Feels Safe At This Time Assistive Devices: None Allergies Allergies Allergy/AdvReac Type Severity Reaction Status Date / Time Penicillins AdvReac Headache Verified 03/09/24 16:40 Home Meds Home Medications Medication Instructions Recorded Confirmed atorvastatin 40 mg tablet 40 mg PO HS 07/25/23 03/09/24 finasteride 5 mg tablet 5 mg PO [facility] 07/25/23 03/09/24 isosorbide mononitrate 60 mg 120 mg PO QA 07/25/23 03/09/24 tablet,extended release 24 hr losartan 50 mg tablet 50 mg PO HS 07/25/23 03/09/24 omeprazole 20 mg capsule,delayed 20 mg PO QA 07/25/23 03/09/24 release tamsulosin 0.4 mg capsule 0.4 mg PO HS 07/25/23 03/09/24 ascorbic acid (vitamin C) 500 mg 500 mg PO QA 03/09/24 03/09/24 tablet cholecalciferol (vitamin D3) 125 125 mcg PO [facility] 03/09/24 03/09/24 mcg (5,000 unit) tablet (Vitamin D3) coenzyme Q10 100 mg capsule (Co 100 mg PO [facility] 03/09/24 03/09/24 Q-10) metoprolol succinate 100 mg 100 mg PO [facility] 03/09/24 03/09/24 tablet,extended release 24 hr nitroglycerin 0.4 mg sublingual 0.4 mg sublingual UD PRN Chest Pain 03/09/24 03/09/24 tablet zinc acetate 50 mg (zinc) capsule 50 mg PO [facility] 03/09/24 03/09/24 Results & Data (ED) Vital Signs Vital Signs - 24 hr 03/09/24 14:34 03/09/24 15:13 03/09/24 15:16 Temperature 36.7 C 36.9 C Temperature Source Temporal Artery Scan Oral Pulse Rate 63 Pulse Rate [Right Finger] 55 L Pulse Rhythm [Right Finger] Regular Pulse Strength [Right Finger] Normal Respiratory Rate 18 20 Respiratory Effort / Characteristics Non-Labored Spontaneous Non-Labored Spontaneous Respiratory Depth Normal Normal Respiratory Pattern Regular Blood Pressure 148/82 H Blood Pressure [Left Arm] 148/68 H Blood Pressure Mean 104 Blood Pressure Mean [Left Arm] 94 Blood Pressure Position Sitting Blood Pressure Position [Left Arm] Semi-fowlers Pulse Oximetry 96 98 98 Oxygen Delivery Method Room Air Room Air Room Air Sepsis Recent Fever Within 48 Hours No Sepsis New/Unexplained Change in Mental Status No Sepsis Action Taken by Nursing No Action Required 03/09/24 15:27 Temperature Temperature Source Pulse Rate 58 L Pulse Rate [Right Finger] Pulse Rhythm [Right Finger] Pulse Strength [Right Finger] Respiratory Rate Respiratory Effort / Characteristics Respiratory Depth Respiratory Pattern Blood Pressure Blood Pressure [Left Arm] Blood Pressure Mean Blood Pressure Mean [Left Arm] Blood Pressure Position Blood Pressure Position [Left Arm] Pulse Oximetry Oxygen Delivery Method Sepsis Recent Fever Within 48 Hours Sepsis New/Unexplained Change in Mental Status Sepsis Action Taken by Nursing Laboratory Data 03/09/24 14:38 03/09/24 14:38 Lab Results 03/09/24 03/09/24 03/09/24 Range/Units 14:38 14:44 15:20 WBC 9.10 (4.8-10.8) K/ul RBC 4.54 L (4.70-6.10) M/uL Hgb 13.6 L (14.0-18.0) g/dl POC Hgb 13.9 L (14.0-18.0) g/dl Hct 40.7 L (42.0-52.0) % POC Hct 41 L (42-52) % MCV 89.6 (80.0-100.0) fL MCH 30.0 (25.0-34.0) pg MCHC 33.4 (32.0-36.0) g/dL RDW Std Deviation 46.0 (36.4-46.3) fL RDW Coeff of Giovanni 14.0 (11.5-14.5) % Plt Count 237 (130-400) K/uL MPV 10.0 (9.4-12.4) fL Immature Gran % (Auto) 0.2 % Neut % (Auto) 67.2 % Lymph % (Auto) 22.2 % Trigg % (Auto) 7.7 % Eos % (Auto) 2.2 % Baso % (Auto) 0.5 % Neut # (Auto) 6.11 (1.40-6.50) K/uL Lymph # (Auto) 2.02 (1.20-3.40) K/uL Trigg # (Auto) 0.70 H (0.11-0.59) K/uL Eos # (Auto) 0.20 (0.00-0.50) K/uL Baso # (Auto) 0.05 (0.00-0.20) K/uL Immature Gran # (Auto) 0.02 (0.01-0.20) K/uL PT 10.7 (9.0-12.0) Seconds INR 1.0 (0.9-1.1) APTT 26 (21-31) Seconds PTT Ratio 1.0 POC Sodium 138 (135-144) mmol/L Sodium 137 (136-145) mmol/L POC Potassium 4.2 (3.3-5.0) mmol/L Potassium 4.2 (3.5-5.1) mmol/L POC Chloride 104 (101-112) mmol/L Chloride 104 (98-107) mmol/L Carbon Dioxide 28 (21-32) mmol/L POC Total CO2 25 (24-31) mmol/L Anion Gap 5 (3-11) POC Anion Gap 14.0 L (16-25) mmol/L POC BUN 29 H (7-18) mg/dl BUN 30 H (6-23) mg/dl Creatinine 1.32 (0.6-1.4) mg/dl POC Creatinine 1.4 H (0.6-1.3) mg/dl Est Cr Clr Drug Dosing 51.7 ml/min Est GFR ( Amer) 58.6 ml/min Est GFR (Non-Af Amer) 50.6 ml/min BUN/Creatinine Ratio 22.7 H (10-20) Glucose 113 H (70-99(Fasting)) mg/dl POC Glucose 97 (70-99) mg/dl POC Glucose (other) 110 H (70-99) mg/dl Calcium 9.5 (8.6-10.3) mg/dl POC Ioniz Calcium Madhu 1.25 (1.12-1.32) mmol/l Magnesium 2.0 (1.7-2.4) mg/dl Total Bilirubin 1.1 H (0.2-1.0) mg/dl AST 17 (13-39) U/L ALT 15 (7-52) U/L Alkaline Phosphatase 75 (34-104) U/L Troponin I High Sens 21.7 H (0-20) pg/ml Total Protein 7.4 (6.0-8.3) gm/dl Albumin 4.5 (3.4-5.0) gm/dl Globulin 2.9 (2.5-4.0) gm/dl Albumin/Globulin Ratio 1.6 (0.9-2) Administered Medications Discontinued Medications Aspirin (Aspirin Chew 324 Mg) 324 mg PO NOW STA Stop: 03/09/24 15:44 Last Admin: 03/09/24 16:03 Dose: 324 mg Documented By: ELAN Ioversol (Optiray 320 125ml) 120 ml IV ONCE ONE Stop: 03/09/24 14:50 Last Admin: 03/09/24 14:50 Dose: 120 ml Documented By: DANYEL Lorazepam (Lorazepam 1 Mg/1 Ml Syr Ed Inj Use) 0.5 mg IV ONE STA Stop: 03/09/24 17:24 Last Admin: 03/09/24 17:37 Dose: 0.5 mg Documented By: ELAN Imaging Data Radiologist's Impression: Head CT 03/09/24 14:36 CT OF THE HEAD WITHOUT CONTRAST CLINICAL HISTORY: Right-sided weakness. COMPARISON STUDY: No previous studies for comparison. TECHNIQUE: Helical axial images of the head were obtained without IV contrast. Automated exposure control was utilized for the study. A dose lowering technique was utilized adhering to the principles of ALARA. FINDINGS: No acute intracranial hemorrhage, midline shift or mass effect is present. The ventricular system is unremarkable. The basal cisterns are patent. No extra-axial collections are present. There are no findings to suggest acute dural sinus thrombosis or acute territorial infarct. No significant calvarial abnormalities are present. Visualized portions of the sinuses and mastoid air cells are clear. IMPRESSION: No acute intracranial findings. ACT 112: Negative or not required by law. Electronically signed by: Mina Yap M.D. 03/09/2024 3:04 PM Head CTA 03/09/24 14:36 CT ANGIOGRAM OF THE BRAIN CLINICAL HISTORY: Right-sided weakness. COMPARISON STUDY: Unenhanced CT of the brain performed concurrently on 03/09/2024. TECHNIQUE: Following the IV administration of 120 cc of Optiray 320, CT angiogram of the brain was performed from the skull base to the vertex. Images are reviewed in the axial, sagittal, and coronal planes. 3-D MIPS images are created and assessed. IV contrast was administered without complication. A dose lowering technique was utilized adhering to the principles of ALARA. FINDINGS: Brain parenchyma: There is age-related involutional change noting mild subcortical and periventricular microangiopathic disease. There is no evidence of hemorrhage, mass effect, or acute territorial ischemia noting angiographic phase technique. There is no evidence of enhancing mass lesion on the angiogram phase images. No extra-axial fluid collection is seen. Craig-white matter differentiation is preserved. Ventricles, sulci, and cisterns: Prominent secondary to positional change. CT angiogram of the brain: There is atherosclerotic calcification of the cavernous carotid and vertebral arteries. The internal carotid arteries are widely patent, as are the anterior and middle cerebral arteries. The vertebrobasilar system and posterior cerebral arteries are widely patent. The vertebral arteries are codominant. There is no aneurysm, high-grade stenosis, or focal vessel cutoff identified throughout the intracranial circulation. Dural sinuses: Clear as visualized. Orbits: The bony orbits are intact. The orbital contents are normal as visualized noting bilateral ocular lens implants. Sinuses and mastoids: The visualized paranasal sinuses are clear. The mastoid air cells are well pneumatized. Calvarium: Unremarkable. IMPRESSION: 1. There is no evidence of hemorrhage, mass effect, or acute territorial ischemia noting angiographic phase technique. 2. Unremarkable CT angiogram of the brain. ACT 112: Negative or not required by law. Electronically signed by: Meng Sharpe M.D. 03/09/2024 3:14 PM Neck CTA 03/09/24 14:36 CT ANGIOGRAPHY OF THE NECK WITH CONTRAST CLINICAL HISTORY: Right-sided weakness. COMPARISON STUDY: No previous studies for comparison. Technique: CT angiography of the carotid and vertebral arteries was obtained using Optiray and 3D reconstruction on an independent workstation. NASCET criteria was utilized. Automated exposure control was utilized for the study. A dose lowering technique was utilized adhering to the principles of ALARA. CT DOSE: 1183.81 mGy.cm Findings: Visualized portions of the lung apices are unremarkable. There is no cervical lymphadenopathy or cervical spine fracture. The origins of the bilateral vertebral arteries are suboptimally assessed. There is probable mild stenosis at the origin of the left vertebral artery and mild stenosis at the origin of the right vertebral artery. There is no dissection or aneurysm within the neck. Is bilateral common carotid and cervical internal carotid arteries are patent. There is moderate plaque within the proximal right internal carotid artery and mild plaque within the proximal left internal carotid artery. IMPRESSION: 1. No stenosis within the bilateral common carotid or cervical internal carotid arteries. 2. Probable moderate stenosis within the proximal left vertebral artery and mild stenosis within the proximal right vertebral artery. ACT 112: Negative or not required by law. Electronically signed by: Mina Yap M.D. 03/09/2024 3:11 PM Discharge Plan Visit Data Chief Complaint: Neuro Symptoms/Deficit Stated Complaint: RT SIDE NO CONTROL ED Provider: Ric Mireles Discharge Problem: TIA (transient ischemic attack), Elevated troponin Patient Disposition: Admitted As Inpatient Discharge Instructions Interventions: ED Discharge Assessment Last Done: 03/09/24 17:56
[2024-03-09 15:13] LABS: Albumin Globulin Ratio 1.6 (0.9-2); Albumin Level 4.5 gm/dl (3.4-5.0); BUN Creatinine Ratio 22.7 (10-20); Bilirubin,Total 1.1 mg/dl (0.2-1.0); Calcium 9.5 mg/dl (8.6-10.3); Creatinine Clr Calc Pharmacy 51.7 ml/min; Est GFR (African American) 58.6 ml/min; Est GFR (Non-African American) 50.6 ml/min; Globulin 2.9 gm/dl (2.5-4.0); Potassium 4.2 mmol/L (3.5-5.1); Total Protein 7.4 gm/dl (6.0-8.3)
--- NOTE | 2024-03-09 15:14 | CT Scan Report ---
CT ANGIOGRAPHY OF THE NECK WITH CONTRAST CLINICAL HISTORY: Right-sided weakness. COMPARISON STUDY: No previous studies for comparison. Technique: CT angiography of the carotid and vertebral arteries was obtained using Optiray and 3D rec onstruction on an independent workstation. NASCET criteria was utilized. Automated exposure control was utilized for the study. A dose lowering technique was utilized adhering to the principles of ALA RA. CT DOSE: 1183.81 mGy.cm Findings: Visualized portions of the lung apices are unremarkable. There is no cervical lymphadenopat hy or cervical spine fracture. The origins of the bilateral vertebral arteries are suboptimally asses sed. There is probable mild stenosis at the origin of the left vertebral artery and mild stenosis at the origin of the right vertebral artery. There is no dissection or aneurysm within the neck. Is bila teral common carotid and cervical internal carotid arteries are patent. There is moderate plaque with in the proximal right internal carotid artery and mild plaque within the proximal left internal carot id artery. IMPRESSION: 1. No stenosis within the bilateral common carotid or cervical internal carotid arteries. 2. Probable moderate stenosis within the proximal left vertebral artery and mild stenosis within the proximal right vertebral artery. ACT 112: Negative or not required by law. Electronically signed by: Mina Yap M.D. 03/09/2024 3:11 PM
--- NOTE | 2024-03-09 15:16 | CT Scan Report ---
CT ANGIOGRAM OF THE BRAIN CLINICAL HISTORY: Right-sided weakness. COMPARISON STUDY: Unenhanced CT of the brain performed concurrently on 03/09/2024. TECHNIQUE: Following the IV administration of 120 cc of Optiray 320, CT angiogram of the brain was pe rformed from the skull base to the vertex. Images are reviewed in the axial, sagittal, and coronal pl anes. 3-D MIPS images are created and assessed. IV contrast was administered without complication. A dose lowering technique was utilized adhering to the principles of ALARA. FINDINGS: Brain parenchyma: There is age-related involutional change noting mild subcortical and periventricula r microangiopathic disease. There is no evidence of hemorrhage, mass effect, or acute territorial isc hemia noting angiographic phase technique. There is no evidence of enhancing mass lesion on the angio gram phase images. No extra-axial fluid collection is seen. Craig-white matter differentiation is pres erved. Ventricles, sulci, and cisterns: Prominent secondary to positional change. CT angiogram of the brain: There is atherosclerotic calcification of the cavernous carotid and verteb ral arteries. The internal carotid arteries are widely patent, as are the anterior and middle cerebra l arteries. The vertebrobasilar system and posterior cerebral arteries are widely patent. The vertebr al arteries are codominant. There is no aneurysm, high-grade stenosis, or focal vessel cutoff identif ied throughout the intracranial circulation. Dural sinuses: Clear as visualized. Orbits: The bony orbits are intact. The orbital contents are normal as visualized noting bilateral oc ular lens implants. Sinuses and mastoids: The visualized paranasal sinuses are clear. The mastoid air cells are well pneu matized. Calvarium: Unremarkable. IMPRESSION: 1. There is no evidence of hemorrhage, mass effect, or acute territorial ischemia noting angiographi c phase technique. 2. Unremarkable CT angiogram of the brain. ACT 112: Negative or not required by law. Electronically signed by: Meng Sharpe M.D. 03/09/2024 3:14 PM
[2024-03-09 15:19] LABS: Troponin I High Sensitivity 21.7 pg/ml (0-20)
[2024-03-09 15:22] LABS: Partial Thromboplastin Time 26 Seconds (21-31); Prothrombin Time 10.7 Seconds (9.0-12.0)
--- NOTE | 2024-03-09 15:39 | History & Physical Report ---
Date of Service March 09, 2024 Assessment & Plan (1) Stroke-like symptoms: Plan: -Admit to med/tele -Currently stable and nearly resolved neurologic symptoms -Experienced acute onset of right sided weakness and imbalance while in the shower around 1315 this afternoon -Symptoms lasted for approximately 40-50 min -At this time we are most concerned for possible TIA/CVA with his symptoms, hx of aifb, and hx of non-compliance at times with his Eliquis -No seizure-like activity, no signs of infection at this time, will obtain UA and CXR for further evaluation -Will give 324 mg Aspirin now -Will obtain MRI of the head/brain wo con and TTE -Follow am Hgb A1c and fasting lipid panel -Can consult neurology with an concerning findings -Q4h neuro checks, fall/aspiration precautions, PT/OT consults -Home Elqiuis for DVT PPX -HH diet -AM CBC, CMP, mag, PT/INR, A1c, lipid panel (2) Elevated troponin: Plan: -Initial high sen trop elevated at 21 -Patient denies chest discomfort -ECG today shows NSR without acute ST segment or T-wave changes -Will follow 2 hour high sen trop and continue to monitor on tele -Follow TTE tomorrow (3) Afib: Plan: -Currently in NSR -Patient admits to forgetting to take his Eliquis BID at times -Will continue Eliquis -Not currently on rate or rhythm controlling medications (4) HTN (hypertension): Plan: -Stable -Will allow for permissive HTN until MRI results are back (5) BPH (benign prostatic hyperplasia): Plan: -Continue tamsulosin Plan The patient was discussed with Dr. Fonseca at the time of the admission History of Present Illness Chief Complaint: Right sided weakness Primary Care Provider: DO Pablo Holt is an 78 year old male with a PMH significant for afib (on eliquis), HTN, hyperlipidemia, BPH, and CAD S/P ROLAND placement who presented to the [facility] ED on 03/09/24 due to acute onset of right sided weakness. Per the ED staff, the patient was in the shower around 1315 when he had acute onset of right leg/right arm weakness and feeling off balance. Symptoms spontaneously resolved but he continued to feel "foggy" prompting ED arrival. He was noted to be hypertensive on arrival at 148/68 but was otherwise stable. Labs were significant for a total bili of 1.1 with other LFT's WNL, initial high sen trop of 21. CT of the head/brain wo con and CTA of the head/brain were read as negative for acute findings. CTA of the neck was read as "Probable moderate stenosis within the proximal left vertebral artery and mild stenosis within the proximal right vertebral artery.". We were asked to admit the patient for ongoing stroke/TIA workup. At the time of the exam the patient was sitting in bed in no acute distress with his bedside. He woke in his normal state of health this am. Around 1315 he was taking a shower when he had the acute onset of right sided weakness and imbalance. He felt as though he would fall if he did not grab onto the wall for support. He denies the room spinning, changes in vision, hearing, taste, smell, chest pain, heart palpitations, SOB, cough, hemoptysis, paresthesias, abd pain, nausea, vomiting, diarrhea, dysuria, hematuria, melena, LE swelling, and recent trauma. Symptoms last for approximately 40-50 minutes and have nearly resolved at this time. Denies tobacco or alcohol use. When asked, he states he does forget to take his Eliquis twice daily on some days but this is not intentional. Denies previous hx of stroke or TIA. He is a full code and his would be his primary decision maker if he cannot make decisions himself. Please refer to Dr. Fonseca's attestation for any changes to the treatment plan Allergies Allergy/AdvReac Type Severity Reaction Status Date / Time Penicillins AdvReac Headache Verified 03/09/24 16:40 Home Medications Medication Instructions Recorded Confirmed Type atorvastatin 40 mg tablet 40 mg PO HS 07/25/23 03/09/24 History finasteride 5 mg tablet 5 mg PO QAM 07/25/23 03/09/24 History isosorbide mononitrate 60 mg 120 mg PO QAM 07/25/23 03/09/24 History tablet,extended release 24 hr losartan 50 mg tablet 50 mg PO HS 07/25/23 03/09/24 History omeprazole 20 mg capsule,delayed 20 mg PO QAM 07/25/23 03/09/24 History release tamsulosin 0.4 mg capsule 0.4 mg PO HS 07/25/23 03/09/24 History ascorbic acid (vitamin C) 500 mg 500 mg PO QAM 03/09/24 03/09/24 History tablet cholecalciferol (vitamin D3) 125 125 mcg PO QAM 03/09/24 03/09/24 History mcg (5,000 unit) tablet (Vitamin D3) coenzyme Q10 100 mg capsule (Co 100 mg PO QAM 03/09/24 03/09/24 History Q-10) metoprolol succinate 100 mg 100 mg PO QAM 03/09/24 03/09/24 History tablet,extended release 24 hr nitroglycerin 0.4 mg sublingual 0.4 mg sublingual UD PRN Chest Pain 03/09/24 03/09/24 History tablet zinc acetate 50 mg (zinc) capsule 50 mg PO QAM 03/09/24 03/09/24 History Past Med/Surg History Problem List (Updated 03/09/24 @ 16:11 by Nathan Whitfield PA-C) Afib Stroke-like symptoms History of left knee replacement (Acute) Elevated troponin (Acute) Atrial fibrillation with RVR (Acute) BPH (benign prostatic hyperplasia) HTN (hypertension) (Acute) Presence of stent in coronary artery in patient with coronary artery disease (Acute) Medical History Atrial fibrillation with RVR BPH (benign prostatic hyperplasia) Elevated troponin HTN (hypertension) Social History Smoking Status: Former smoker Second Hand Exposure: No; Do You Dip or Chew Tobacco: No; Hx Alcohol Use: No Hx Substance Use: No Preferred Language: Yakut Communication Ability: Effective Secretary Book Keeper Required: No Beliefs That Will Affect Care: None Current Living Situation: Spouse Other Information That Helps Us Care for You: No Feels Safe at Home: Yes Safety Concerns: Feels Safe At This Time Assistive Devices: None Physical Exam Physical Exam: Physical Exam: General: In no acute distress, stated age, well-nourished, good hygiene HEENT: Normocephalic, atraumatic, no scleral icterus, pupils around round, symmetrical, and reactive to light, moist mucus membranes, trachea midline, no thyromegaly Chest/Pulm: No respiratory distress, symmetrical chest expansion, clear breath sounds throughout Cardiac: RRR, no murmurs noted Abdomen: Negative for ascites and bruising, normoactive bowel sounds, soft, non-tender to palpation throughout Musculoskeletal: Symmetrical and without signs of acute trauma, upper and lower extremities with full ROM, no atrophy, spasticity, or flaccidity Extremities: Radial, dorsalis pedis, and posterior tibial pulses are intact and symmetrical, no edema noted in the BL LE's Skin: Warm, dry, no rashes , lesions, or scars noted Neuro: Alert and oriented to person, place, month, year, and president, no focal defects, CN II-XII tested and intact, negative cerebellar and pronator drift testing BL, no tremors noted Psych: No acute distress, calm and cooperative during the exam Results & Data Results & Data Vital Signs (Past 12 Hours) Vital Signs Temp Pulse Pulse Resp BP BP Pulse Ox 03/09/24 15:27 58 L 03/09/24 15:16 98 03/09/24 15:13 36.9 C 55 L 20 148/68 H 98 03/09/24 14:34 36.7 C 63 18 148/82 H 96 O2 Del Method 03/09/24 15:27 03/09/24 15:16 Room Air 03/09/24 15:13 Room Air 03/09/24 14:34 Room Air Laboratory Results Abnormal lab results 03/09/24 03/09/24 Range/Units 14:38 14:44 RBC 4.54 L (4.70-6.10) M/uL Hgb 13.6 L (14.0-18.0) g/dl POC Hgb 13.9 L (14.0-18.0) g/dl Hct 40.7 L (42.0-52.0) % POC Hct 41 L (42-52) % [place] # (Auto) 0.70 H (0.11-0.59) K/uL POC Anion Gap 14.0 L (16-25) mmol/L POC BUN 29 H (7-18) mg/dl BUN 30 H (6-23) mg/dl POC Creatinine 1.4 H (0.6-1.3) mg/dl BUN/Creatinine Ratio 22.7 H (10-20) Glucose 113 H (70-99(Fasting)) mg/dl POC Glucose (other) 110 H (70-99) mg/dl Total Bilirubin 1.1 H (0.2-1.0) mg/dl Troponin I High Sens 21.7 H (0-20) pg/ml Diagnostic Findings Head CT 03/09/24 14:36 CT OF THE HEAD WITHOUT CONTRAST CLINICAL HISTORY: Right-sided weakness. COMPARISON STUDY: No previous studies for comparison. TECHNIQUE: Helical axial images of the head were obtained without IV contrast. Automated exposure control was utilized for the study. A dose lowering technique was utilized adhering to the principles of ALARA. FINDINGS: No acute intracranial hemorrhage, midline shift or mass effect is present. The ventricular system is unremarkable. The basal cisterns are patent. No extra-axial collections are present. There are no findings to suggest acute dural sinus thrombosis or acute territorial infarct. No significant calvarial abnormalities are present. Visualized portions of the sinuses and mastoid air cells are clear. IMPRESSION: No acute intracranial findings. ACT 112: Negative or not required by law. Electronically signed by: Mina Yap M.D. 03/09/2024 3:04 PM Head CTA 03/09/24 14:36 CT ANGIOGRAM OF THE BRAIN CLINICAL HISTORY: Right-sided weakness. COMPARISON STUDY: Unenhanced CT of the brain performed concurrently on 03/09/2024. TECHNIQUE: Following the IV administration of 120 cc of Optiray 320, CT angiogram of the brain was performed from the skull base to the vertex. Images are reviewed in the axial, sagittal, and coronal planes. 3-D MIPS images are created and assessed. IV contrast was administered without complication. A dose lowering technique was utilized adhering to the principles of ALARA. FINDINGS: Brain parenchyma: There is age-related involutional change noting mild subcortical and periventricular microangiopathic disease. There is no evidence of hemorrhage, mass effect, or acute territorial ischemia noting angiographic phase technique. There is no evidence of enhancing mass lesion on the angiogram phase images. No extra-axial fluid collection is seen. Craig-white matter differentiation is preserved. Ventricles, sulci, and cisterns: Prominent secondary to positional change. CT angiogram of the brain: There is atherosclerotic calcification of the cavernous carotid and vertebral arteries. The internal carotid arteries are widely patent, as are the anterior and middle cerebral arteries. The vertebrobasilar system and posterior cerebral arteries are widely patent. The vertebral arteries are codominant. There is no aneurysm, high-grade stenosis, or focal vessel cutoff identified throughout the intracranial circulation. Dural sinuses: Clear as visualized. Orbits: The bony orbits are intact. The orbital contents are normal as visualized noting bilateral ocular lens implants. Sinuses and mastoids: The visualized paranasal sinuses are clear. The mastoid air cells are well pneumatized. Calvarium: Unremarkable. IMPRESSION: 1. There is no evidence of hemorrhage, mass effect, or acute territorial ischemia noting angiographic phase technique. 2. Unremarkable CT angiogram of the brain. ACT 112: Negative or not required by law. Electronically signed by: Meng Sharpe M.D. 03/09/2024 3:14 PM Neck CTA 03/09/24 14:36 CT ANGIOGRAPHY OF THE NECK WITH CONTRAST CLINICAL HISTORY: Right-sided weakness. COMPARISON STUDY: No previous studies for comparison. Technique: CT angiography of the carotid and vertebral arteries was obtained using Optiray and 3D reconstruction on an independent workstation. NASCET criteria was utilized. Automated exposure control was utilized for the study. A dose lowering technique was utilized adhering to the principles of ALARA. CT DOSE: 1183.81 mGy.cm Findings: Visualized portions of the lung apices are unremarkable. There is no cervical lymphadenopathy or cervical spine fracture. The origins of the bilateral vertebral arteries are suboptimally assessed. There is probable mild stenosis at the origin of the left vertebral artery and mild stenosis at the origin of the right vertebral artery. There is no dissection or aneurysm within the neck. Is bilateral common carotid and cervical internal carotid arteries are patent. There is moderate plaque within the proximal right internal carotid artery and mild plaque within the proximal left internal carotid artery. IMPRESSION: 1. No stenosis within the bilateral common carotid or cervical internal carotid arteries. 2. Probable moderate stenosis within the proximal left vertebral artery and mild stenosis within the proximal right vertebral artery. ACT 112: Negative or not required by law. Electronically signed by: Mina Yap M.D. 03/09/2024 3:11 PM ECG Additional Comments: Sinus bradycardia Moderate voltage criteria for LVH, may be normal variant ( R in aVL , Jeremy product ) Borderline ECG When compared with ECG of 25-JUL-2023 12:52, Sinus rhythm has replaced Atrial fibrillation Vent. rate has decreased BY [address] no longer depressed in Lateral leads Code Status & VTE Plan Code Status Full code VTE Prophylaxis Plan VTE Prophylaxis will be ordered: Yes Supervising Physician Co-Signing Physician Notes patient was seen and examined, h/o AFib, in sinus rhythm currently, presents with right arm , leg weakness for 45 minutes, symptoms completely resolved , no deficit at the time of examination, MRI brain is ordered , CTA brain, neck report reviewed, patient is not compliant with Eliquis, not clear if he takes other meds, monitor BP, neuro checks, continue Eliquis neurology consult PG Care Time/CCT Total # of Minutes Spent Total Time Spent with Patient: Total time spent is greater than 50% in coordination of care (as documented) at patient's floor/unit and/or counseling patient: Coding [place] [address] INT INP/OBS CARE 2/55MIN Patient Type Established Medical Decision Making Moderate Complexity Diagnoses Stroke-like symptoms R29.90 Elevated troponin R79.89 Afib I48.91 HTN (hypertension) I10 Hypertension type: unspecified BPH (benign prostatic hyperplasia) N40.0 (4) HTN (hypertension) Hypertension type: unspecified Qualified Code(s): I10 - Essential (primary) hypertension
[2024-03-09] MEDS ORDERED: PHARMACIST DISCHARGE MED REC CONSULT PRN (15:45)
[2024-03-09] MEDS: ASPIRIN CHEW 324 MG PO STA (16:03)
[2024-03-09] MEDS ORDERED: ACETAMINOPHEN 325 MG TAB PO PRN (16:05)
--- NOTE | 2024-03-09 16:44 | XRay Report ---
XR chest 1V portable CLINICAL HISTORY: stroke workup TECHNIQUE: Single frontal radiograph of the chest was obtained. Comparison: Comparison is made to chest radiograph 07/25/2023 FINDINGS: No lines and tubes are seen. The cardiomediastinal silhouette is normal. The lungs are clear. No evid ence of pleural effusion or pneumothorax. IMPRESSION: No acute chest disease. ACT 112: Negative or not required by law. Electronically signed by: Scotty Oseguera M.D. 03/09/2024 4:43 PM
--- NOTE | 2024-03-09 16:54 | Electrocardiogram Report ---
Test Reason : Blood Pressure : / mmHG Vent. Rate : 059 BPM Atrial Rate : 059 BPM P-R Int : 186 ms QRS Dur : 110 ms QT Int : 418 ms P-R-T Axes : 020 -09 034 degrees QTc Int : 413 ms Sinus bradycardia Moderate voltage criteria for LVH, may be normal variant ( R in aVL , Rice product ) Borderline ECG When compared with ECG of 25-JUL-2023 12:52, Sinus rhythm has replaced Atrial fibrillation Vent. rate has decreased BY [address] no longer depressed in Lateral leads Confirmed by Edgardo Helton ([id number]) on 03/09/2024 4:54:14 PM Referred By: Confirmed By:Edgardo Helton
[2024-03-09] MEDS: LORazepam 1 MG/1 ML SYR ED Inj Use IV STA (17:37)
--- NOTE | 2024-03-09 18:35 | Magnetic Resonance Report ---
MRI OF THE BRAIN WITHOUT IV CONTRAST CLINICAL HISTORY: Strokelike symptoms. COMPARISON STUDY: CT of the brain dated 03/09/2024. TECHNIQUE: MRI of the brain was performed utilizing various T1 and T2-weighted sequences in the axial , sagittal, and coronal planes. IV contrast was not administered for this examination. FINDINGS: Brain parenchyma: A 10 mm oval focus of slightly increased signal signal within the midline midbrain is is seen on axial diffusion-weighted image #10. This could not be corroborated on additional sequen monica. No additional foci of restricted diffusion are suggested. There is age-related involutional gutiérrez ge noting minimal microangiopathic disease. There is no hemorrhage or mass effect. An 8 mm cavernoma is noted in the right parietal lobe on axial image #15. Craig-white matter differentiation is preser kirsty. No extra-axial fluid collection is seen. The cerebellar tonsils are normal in configuration. Ventricles, sulci, and cisterns: Prominent secondary to involutional change. Pituitary and sella: Unremarkable. Intracranial vasculature: Normal flow voids are maintained at the skull base. Orbits: The bony orbits are grossly intact. Orbital contents are normal in appearance noting bilatera l ocular lens implants. Sinuses and mastoids: Clear. Calvarium: Unremarkable. Cervical cord: Partially visualized cervical spinal cord is normal in morphology and signal intensity . IMPRESSION: 1. A 10 mm ovoid focus of slightly increased diffusion signal within the midline midbrain could not b e corroborated on any of the additional sequences and artifact is favored. A lacunar infarct is consi dered less likely but not entirely excluded. Clinical correlation will be required. 2. No additional foci of restricted diffusion are seen typical for acute ischemia. 3. There is no hemorrhage or mass effect. 4. 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 ACT 112: Negative or not required by law. Electronically signed by: Meng Sharpe M.D. 03/09/2024 6:33 PM
[2024-03-09 21:10] LABS: Appearance Urine Clear (Clear); Bilirubin Urine Negative (Negative); Blood Urine Negative (Negative); Color Urine Yellow; Glucose Urine UA Negative (Negative); Ketones Urine Negative (Negative); Leukocyte Esterase Urine Negative (Negative); Nitrite Urine Negative (Negative); Protein Urine Negative (Negative); Specific Gravity Urine > 1.045 (1.000-1.030); Urobilinogen Urine Negative (Negative)
[2024-03-09] MEDS: APIXABAN 5 MG TABLET PO STA (23:12)
[2024-03-09] MEDS: TAMSULOSIN HCL 0.4 MG CAP PO SCH (23:12)
[2024-03-09] MEDS: ATORVASTATIN 40 MG TAB PO SCH (23:12)
[2024-03-10 05:51] LABS: Basophils # (auto) 0.07 K/uL (0.00-0.20); Basophils % (auto) 0.8 %; Eosinophils # (auto) 0.23 K/uL (0.00-0.50); Eosinophils % (auto) 2.5 %; Hematocrit (blood only) 40.2 % (42.0-52.0); Hemoglobin 13.4 g/dl (14.0-18.0); Immature Granulocytes # (auto) 0.02 K/uL (0.01-0.20); Immature Granulocytes % (auto) 0.2 %; Lymphocytes # (auto) 2.19 K/uL (1.20-3.40); Lymphocytes % (auto) 23.5 %; Mean Corpuscular Hemoglobin 29.7 pg (25.0-34.0); Mean Corpuscular Hgb Conc 33.3 g/dL (32.0-36.0); Mean Corpuscular Volume 89.1 fL (80.0-100.0); Mean Platelet Volume 10.2 fL (9.4-12.4); Monocytes % (auto) 8.6 %; Neutrophils % (auto) 64.4 %; Platelet Count 232 K/uL (130-400); RDW Coefficient of Variation 14.1 % (11.5-14.5); RDW Standard Deviation 46.1 fL (36.4-46.3); Red Blood Count 4.51 M/uL (4.70-6.10); White Blood Count 9.31 K/ul (4.8-10.8)
[2024-03-10 06:08] LABS: Albumin Globulin Ratio 1.5 (0.9-2); Albumin Level 4.1 gm/dl (3.4-5.0); BUN Creatinine Ratio 26.1 (10-20); Bilirubin,Total 0.7 mg/dl (0.2-1.0); Calcium 8.9 mg/dl (8.6-10.3); Chol HDL Ratio 3.4 (0-5); Creatinine Clr Calc Pharmacy 59.4 ml/min; Est GFR (African American) 69.3 ml/min; Est GFR (Non-African American) 59.8 ml/min; Globulin 2.8 gm/dl (2.5-4.0); Magnesium 2.1 mg/dl (1.7-2.4); Potassium 4.4 mmol/L (3.5-5.1); Total Protein 6.9 gm/dl (6.0-8.3)
[2024-03-10 06:18] LABS: Prothrombin Time 10.4 Seconds (9.0-12.0)
[2024-03-10 07:11] LABS: Estimated Average Glucose 128 mg/dl; Hemoglobin A1C 6.1 % (4.5-5.6)
--- NOTE | 2024-03-10 09:02 | Neurology Consultation ---
Date of Consultation March 10, 2024 Assessment & Plan (1) Acute right-sided weakness: (2) Vertebral artery narrowing: (3) TIA (transient ischemic attack): (4) Atrial fibrillation with RVR: (5) HTN (hypertension): (6) Dyslipidemia: Plan This patient had the acute onset of right arm and leg weakness on March 09 lasting less than an hour. The history suggests a thrombotic event (not embolus). On neurologic examination the patient has no focal findings, meningeal signs, or encephalopathy. CT angiography reveals some mild nonspecific proximal vertebral artery stenosis left greater than right side. There are no other vascular abnormalities. Overall, this event is consistent with a TIA The MRI, although it did not show a stroke, showed an abnormal signal in the midbrain centrally bilaterally. This would be most consistent with a metabolic issue or "Wernicke's" but it is not consistent with an acute stroke or tumor. This type of lesion may also be seen in carbon monoxide poisoning. Actually, since he has history is not positive for anything specific that would cause this lesion, I do suspect (with radiology) that this is likely an artifact. Risk factors for stroke include atrial fibrillation, hypertension, and dyslipidemia. Recommendations: 1. Agree with continuing 81 mg aspirin tablet daily along with the Eliquis. 2. Obtain B1, B12, TSH, and Lyme antibody titers. 3. Increase activity as able. 4. Awaiting echocardiogram findings 5. There is no need to obtain any additional neurologic testing at this time. I could see this patient for follow-up in 4 to 6 weeks (PA in clinic) and we may consider obtaining an MRI of the brain with and without contrast to follow-up. Overall, I spent a total of 100 minutes with this case including review of records, review of MRI films, direct evaluation of the patient, report generation, and discussion of the case with the patient and RN at bedside, Dr. Goff, and Dr. Yap including differential diagnosis and treatment options. History of Present Illness Reason for Consultation: Patient is an 78-year-old, who was asked to see at the request of Nathan Whitfield PA-C, for neurologic evaluation regarding stroke versus TIA Requesting Physician: Nathan Whitfield PA-C Attending Physician: Angélica Goff MD History of Present Illness Patient has a history of A-fib diagnosed in July 2023 on Eliquis. Prior to that she was on aspirin and the aspirin was stopped when the Eliquis was initiated. In addition, he has a history of hypertension, coronary artery disease status post 1 stent, dyslipidemia, and BPH. The patient was in his usual state of good health he had lunch on March 09. After this he took a shower and at approximately 1315, the patient noted the onset of some abnormal feelings much like weakness in his right foot and leg. After few minutes it became clearly weak and he could not walk or stand well. He also noticed at that time that his right arm was weak. There may have been some neck weakness but no time did he notice anything abnormal with his face and there was no pain or numbness. He was not certain about his speech because he did not speak to anybody during that time. He had no vision issues and his left side was asymptomatic. All of the weakness lasted approximately 45 minutes. He arrived to the emergency room at 1434 on 529 with a temperature 36.7, pulse 63 regular, respiratory rate 18, blood pressure 148/82, and O2 saturation 96%. In the ER initially his neuroexam was unremarkable and he was asymptomatic. NIH stroke scale was 0 and he was not a TNKase candidate. CBC was unremarkable. CHEM profile was largely unremarkable as well. CT scan of the head showed no acute changes. CT angiography of the head and neck was remarkable only for some mild proximal right vertebral stenosis and mild to moderate proximal left vertebral stenosis. The internal carotid arteries and intracranial vessels were quite normal/open. Chest x-ray was unremarkable. MRI of the brain showed no acute stroke. There was a bilateral, central midbrain lesion seen in a couple of sequences of uncertain etiology. I reviewed these films with Dr. Yap and these changes may be consistent with a metabolic/toxic problem (although he has no history that would put him at risk for metabolic or toxic issues) or, simply, is artifact. Nursing reports no new issues overnight and the patient himself has been asymptomatic since admission. Allergies Allergy/AdvReac Type Severity Reaction Status Date / Time Penicillins AdvReac Headache Verified 03/09/24 16:40 Home Medications Medication Instructions Recorded Confirmed Type atorvastatin 40 mg tablet 40 mg PO HS 07/25/23 03/09/24 History finasteride 5 mg tablet 5 mg PO QAM 07/25/23 03/09/24 History isosorbide mononitrate 60 mg 120 mg PO QAM 07/25/23 03/09/24 History tablet,extended release 24 hr losartan 50 mg tablet 50 mg PO HS 07/25/23 03/09/24 History omeprazole 20 mg capsule,delayed 20 mg PO QAM 07/25/23 03/09/24 History release tamsulosin 0.4 mg capsule 0.4 mg PO HS 07/25/23 03/09/24 History ascorbic acid (vitamin C) 500 mg 500 mg PO QAM 03/09/24 03/09/24 History tablet cholecalciferol (vitamin D3) 125 125 mcg PO QAM 03/09/24 03/09/24 History mcg (5,000 unit) tablet (Vitamin D3) coenzyme Q10 100 mg capsule (Co 100 mg PO QA 03/09/24 03/09/24 History Q-10) metoprolol succinate 100 mg 100 mg PO QAM 03/09/24 03/09/24 History tablet,extended release 24 hr nitroglycerin 0.4 mg sublingual 0.4 mg sublingual UD PRN Chest Pain 03/09/24 03/09/24 History tablet zinc acetate 50 mg (zinc) capsule 50 mg PO QAM 03/09/24 03/09/24 History Patient History Medical History (Updated 03/10/24 @ 09:19 by Clifford De Leon MD) Coronary artery disease Surgical History H/O heart artery stent History of appendectomy History of total left knee replacement Family History Mother , age 81 of dementia Alzheimer disease Father , age 91 of congestive heart failure. 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 Feels Safe at Home: Yes Assistive Devices: None Review of Systems Constitutional: no fever, no fatigue and no weakness Eyes: no diplopia, no eye pain and no worsening vision Ear, Nose, Mouth, Throat: no ear pain, no tinnitus, no hearing loss, no dizziness, no snoring, no hoarseness and no dysphagia Respiratory: no cough and no dyspnea Cardiovascular: no chest pain, no palpitations and no lightheadedness Gastrointestinal: no abdominal pain, no nausea and no vomiting Musculoskeletal: no back pain, no neck pain, no radicular pain, no joint pain and no myalgia Integumentary: no rash and no lesions Neurologic: + tremor(s); no gait abnormality, no loc alized weakness, no generalized weakness, no tingling, no numbness, no abnormal movements, no headache(s), no abnormal speech, no confusion and no memory loss Psychiatric: no depression, no irritability, no anxiety, no difficulty concentrating, no confusion and no hallucinations Endocrine: no fatigue and no flushing Hematologic / Lymphatic: no easy bleeding and no easy bruising Allergy / Immunological: no urticaria and no problem reported Exam (Neuro) Physical Exam: The patient is right-handed. The patient is awake, alert, and attentive. Speech is normal without any aphasia or dysarthria. Mentation and thought processes are intact, with full orientation and normal fund of knowledge. Mood and affect are normal and appropriate. Appearance and grooming are normal. Short and long-term memory are intact to conversation. Pupils are 4 mm bilaterally and reactive to light. Extraocular eye muscles are intact without nystagmus. Visual acuity and visual londono seem normal grossly to confrontation. There are no deficits to sensation in the face in all 3 distributions of the fifth cranial nerve bilaterally. Corneal reflexes are positive bilaterally. Facial strength and symmetry was normal bilaterally. Hearing seems intact flakita ssly to voice and finger rub bilaterally. Palate moves well without asymmetry. There is normal sternocleidomastoid and trapezius strength bilaterally. Tongue is midline with good strength bilaterally. Neck has a full range of motion without discomfort. There are no cervical bruits bilaterally. There are no cranial or ocular bruits. Heart is without murmur. There is a regular rhythm and rate. Cervical, thoracic, and lumbar spine are nontender to palpation. Gait is narrow based, with good arm swing, turns, and stance. Balance is normal eyes open or closed. With outstretched arms there is no drift. There are no resting tremors. Patient did have a mild action tremor on the left present. There is no ataxia with finger to nose testing. There is good facility in the hands. No other abnormal involuntary movements are noted. Motor strength is 5/5 diffusely in the arms bilaterally including deltoids, biceps, triceps, brachioradialis, wrist flexors and extensors, network programmer, and intrinsic hand muscles. Motor strength is 5/5 diffusely in the legs bilaterally including hip flexors, quadriceps, hamstrings, gastrocnemius, tibialis anterior, tibialis posterior, and Peroneii muscles bilaterally. Toe extensors are normal and there is good bulk in the extensor digitorum brevis muscles bilaterally. The limbs have good tone without rigidity or spasticity. There is no atrophy noted in the muscles. Muscle bulk is normal, there is no tenderness to palpation, no myotonia to percussion, and no fasciculations seen. Sensory examination is intact to touch and pin throughout all 4 limbs diffusely. Reflexes are 1/4 in the biceps and triceps tendons bilaterally, 2/4 in the quadriceps tendons bilaterally, and absent in the brachioradialis and Achilles tendons bilaterally. Toes are downgoing with plantar stimulation bilaterally. Peripheral pulses are present and of normal quality distally in all 4 limbs. There is no peripheral edema noted in the limbs. Results & Data Vital Signs (Past 12 Hours) Vital Signs Temp Pulse Pulse Resp BP Pulse Ox O2 Del Method 03/10/24 08:21 36.5 C 58 L 16 150/77 H 97 Room Air 03/10/24 07:26 53 L 03/10/24 04:00 36.5 C 56 L 18 129/68 97 Room Air 03/10/24 01:26 59 L 03/10/24 00:00 36.5 C 56 L 18 112/61 95 Room Air PG Care Time/CCT Total # of Minutes Spent Total Time Spent with Patient: Total time spent is greater than 50% in coordination of care (as documented) at patient's floor/unit and/or counseling patient: Coding Level of Care Code 16019 INT INP/OBS CARE 3/75MIN Diagnoses Acute right-sided weakness R53.1 Vertebral artery narrowing I65.09 TIA (transient ischemic attack) G45.9 Atrial fibrillation with RVR I48.91 HTN (hypertension) I10 Hypertension type: unspecified Dyslipidemia E78.5 Time Spent (min) 100 (5) HTN (hypertension) Hypertension type: unspecified Qualified Code(s): I10 - Essential (primary) hypertension
[2024-03-10] MEDS: FINASTERIDE 5 MG TAB PO SCH (09:21)
[2024-03-10] MEDS: METOPROLOL SUCC 50MG EXT REL TAB PO SCH (09:21)
[2024-03-10] MEDS: PANTOprazole 40 MG TAB PO SCH (09:21)
[2024-03-10] MEDS: APIXABAN 5 MG TABLET PO SCH (09:22)
[2024-03-10] MEDS: CLOPIDOGREL BISULFATE 75 MG TAB PO SCH (09:23)
[2024-03-10] MEDS: ASPIRIN 81 MG ECTAB PO SCH (09:23)
--- NOTE | 2024-03-10 10:18 | Pharmacy Report ---
- Date of Service March 10, 2024 - Pharmacy CVA/TIA Medication Review Medications to Prevent Stroke handout has been added to the patients discharge packet. Antiplatelet(s) * Aspirin 81mg Daily Cholesterol * High intensity statin: atorvastatin 40 mg daily DVT Prophylaxis * Therapeutic anticoagulation with apixaban 5mg BID Therapeutic Anticoagulation * Hx Afib noted, and patient is currently receiving apixaban 5mg BID Type 2 Diabetes * Patient does not have T2DM
--- NOTE | 2024-03-10 13:13 | Discharge Summary ---
Date of Service March 10, 2024 Admission HPI Per Admitting Provider Pablo is an 78 year old male with a PMH significant for afib (on eliquis), HTN, hyperlipidemia, BPH, and CAD S/P ROLAND placement who presented to the [facility] ED on 03/09/24 due to acute onset of right sided weakness. Per the ED staff, the patient was in the shower around 1315 when he had acute onset of right leg/right arm weakness and feeling off balance. Symptoms spontaneously resolved but he continued to feel "foggy" prompting ED arrival. He was noted to be hypertensive on arrival at 148/68 but was otherwise stable. Labs were significant for a total bili of 1.1 with other LFT's WNL, initial high sen trop of 21. CT of the head/brain wo con and CTA of the head/brain were read as negative for acute findings. CTA of the neck was read as "Probable moderate stenosis within the proximal left vertebral artery and mild stenosis within the proximal right vertebral artery.". We were asked to admit the patient for ongoing stroke/TIA workup. At the time of the exam the patient was sitting in bed in no acute distress with his bedside. He woke in his normal state of health this am. Around 1315 he was taking a shower when he had the acute onset of right sided weakness and imbalance. He felt as though he would fall if he did not grab onto the wall for support. He denies the room spinning, changes in vision, hearing, taste, smell, chest pain, heart palpitations, SOB, cough, hemoptysis, paresthesias, abd pain, nausea, vomiting, diarrhea, dysuria, hematuria, melena, LE swelling, and recent trauma. Symptoms last for approximately 40-50 minutes and have nearly resolved at this time. Denies tobacco or alcohol use. When asked, he states he does forget to take his Eliquis twice daily on some days but this is not intentional. Denies previous hx of stroke or TIA. He is a full code and his would be his primary decision maker if he cannot make decisions himself. Please refer to Dr. Fonseca's attestation for any changes to the treatment plan Principal Diagnosis TIA Discharge Exam Constitutional: well-appearing, no acute distress HEENT: NCAT, no conjunctival injection CV: regular rhythm, no murmur appreciated, extremities well-perfused, no LE edema Resp: CTABL, no wheezes/rales/rhonchi appreciated, no increased work of breathing MSK: no gross deformities appreciated Skin: warm, dry, no rash appreciated Neuro: alert, oriented, no focal neurologic deficit appreciated Discharge Data Allergies Allergy/AdvReac Type Severity Reaction Status Date / Time Penicillins AdvReac Headache Verified 03/09/24 16:40 Consultations 03/09/24 15:33 ED Decision to Admit Stat 03/09/24 19:39 Consult Neurology Routine Ordered Studies 03/09/24 14:36 CT angio head w con Stat CT angio neck with con Stat CT head/brain wo con Stat 03/09/24 16:04 MRI Brain [MR brain wo con] Urgent Hospital Course (1) Acute right-sided weakness: Stroke-like symptoms: - Experienced acute onset of right sided weakness and imbalance; symptoms have sense resolved - Symptoms lasted for approximately 40-50 min - CT Head without acute pathology - CTA head and neck- mild proximal right vertebral stenosis and mild to moderate proximal left vertebral stenosis - TTE with EF= 55-60%, no intraatrial shunt - MRI of the brain showed no acute stroke, abnormal signal in the midbrain centrally bilaterally. - Per neurology: This would be most consistent with a metabolic issue or "Wernicke's" but it is not consistent with an acute stroke or tumor. This type of lesion may also be seen in carbon monoxide poisoning. Actually, since he has history is not positive for anything specific that would cause this lesion, I do suspect (with radiology) that this is likely an artifact - Neurology recommending: - continuing 81 mg aspirin tablet daily along with the Eliquis. - Obtain B1, B12, TSH, and Lyme antibody titers. TSH= 1.7, lyme negative, B1/B12 pending - follow-up in 4 to 6 weeks with neurology and we may consider obtaining an MRI of the brain with and without contrast to follow-up (2) Vertebral artery narrowing: As per above (3) TIA (transient ischemic attack): As per above (4) Atrial fibrillation with RVR: - concern for nonadherence with Eliquis d/t cost. - continue Eliquis, metoprolol for rate control - has cardiology appointment in [facility] coming up, will need referral to [place] [facility] for f/u after that (5) Elevated troponin: - mildly elevated up to 22 - EKG without ischemic changes - asymptomatic - likely demand (6) HTN (hypertension): - continue home medicaitons (7) Dyslipidemia: - continue statin Total Time Total Time Spent Total Time Spent (In Minutes): see attending attestation Discharge Plan Discharge Items Patient Disposition: Home - Self-Care Reason For Visit: STROKE-LIKE SYMPTOMS Discharge Diagnosis: TIA Activity: Per Instructions section Non-emergency contact: Primary Care Provider Call non-emergency contact if: you have any medication questions Follow-up/Referrals: Clifford De Leon MD [Physician] - (4-6 weeks) Osiel Givens DO [Primary Care Provider] - Diet: Regular Addtl Attending Provider Instructions: You were admitted with a likely TIA (transient ischemic attack). Neurology saw you and felt that you should start taking 81mg of aspirin daily. You should continue to take Eliquis twice a day. We got you an appointment with Dr. Carl at Friday 03/16 at 9:45 in the [facility] office. If you need to change the time of this appointment please call the office. We would like you to follow with neurology in 4-6 weeks. They should reach out to you to schedule an appointment. Pending Studies at Discharge: No Stand-Alone Forms: My [facility] [email or web address], Smoking Cessation, Medications to Prevent Stroke Medications and DC Order Prescriptions: New aspirin 81 mg Tablet,Delayed Release (Dr/Ec) 81 mg PO QAM 30 Days Qty: 30 0RF Eliquis 5 mg Tablet 5 mg PO BID 30 Days Qty: 60 0RF Continued losartan 50 mg tablet 50 mg PO HS atorvastatin 40 mg tablet 40 mg PO HS isosorbide mononitrate 60 mg tablet extended release 24 hr 120 mg PO QAM tamsulosin 0.4 mg capsule 0.4 mg PO HS omeprazole 20 mg capsule,delayed release(DR/EC) 20 mg PO QAM finasteride 5 mg tablet 5 mg PO QAM metoprolol succinate 100 mg tablet extended release 24 hr 100 mg PO QAM nitroglycerin 0.4 mg tablet, sublingual 0.4 mg sublingual UD PRN (Reason: Chest Pain) zinc acetate 50 mg (zinc) Capsule 50 mg PO QAM ascorbic acid (vitamin C) 500 mg Tablet 500 mg PO QAM coenzyme Q10 [Co Q-10] 100 mg Capsule 100 mg PO QAM cholecalciferol (vitamin D3) [Vitamin D3] 125 mcg (5,000 unit) Tablet 125 mcg PO QAM Discharge Orders: Discharge Order (Routine); Ordered 03/10/24 Ordered By: Nathaly Velasquez/Other Patient Handouts: A1C, 5 Steps for Eating Healthier Admission Data Admit Date/Time: 03/09/24 15:45 Attending Provider: Angélica Goff Admit Provider: Julia Fonseca Primary Care Provider: Osiel Givens Other Providers: Julia Fonseca; Clifford De Leon Other Interventions: Discharge Summary Assessment (RN) Last Done: 03/10/24 15:20 Supervising Physician Co-Signing Physician Notes Attending Physician Supervision Note: I independently interviewed and examined the patient and verified the bui history and physical, reviewed labs and image studies and agree with findings and care plan noted above.
--- NOTE | 2024-03-10 14:27 | XCELERA ---
[id number]
[2024-03-10] MEDS ORDERED: STROKE PATIENT DISCHARGE STA (14:58)
--- NOTE | 2024-03-10 15:56 | Communication Note ---
Date of Service: March 10, 2024 By CMS guidelines, a determination that the admission or continued stay is not medically necessary has been made by a member of the UR committee and a physic pato for this hospital stay, therefore a Code 44 will be completed and the Inpatient admission will be changed to outpatient.
== END 2024-03-10 16:00 | disposition home or self-care (01) ==
LOC: ED 14:19 → INTOOBSV 15:45 → 2N 15:45 → SUATTDRO 15:45 → 2N 17:56

== ENCOUNTER 2024-03-18 12:13 | Observation (INO) ==
--- NOTE | 2024-03-18 12:36 | Emergency Department Note ---
Impression & Plan Arm paresthesia, left, Elevated BUN, Elevated glucose, Elevated troponin ED Provider Note NAME: BERNY OSPINA AGE: 78 SEX: M : 1945 ARRIVES VIA: Walk-In INFORMANT: Patient ED PROVIDER(S): Ric Mireles DO CHIEF COMPLAINT: Left arm numbness HPI: Patient is an 78-year-old male with a recent TIA, history of A-fib on Eliquis who presents to the ER for left arm numbness that started around 9 AM this morning. He admits to feeling foggy and groggy. No headache or change in vision. No chest pain or shortness of breath. No nausea, vomiting or diarrhea. No dysuria, urgency or frequency. No other exacerbating or remitting factors. ADDITIONAL HISTORY OBTAINED: Per HPI Chronic Medical/Social Conditions Affecting Care: Per HPI PAST MEDICAL HISTORY:See Below PAST SURGICAL HISTORY:See Below FAMILY HISTORY:See Below SOCIAL HISTORY:See Below HOME MEDICATIONS:See Below ALLERGIES:See Below VITALS:See Below PHYSICAL EXAMINATION: GENERAL: Sitting up in bed, alert, well appearing, well nourished, no distress, non-toxic EYE EXAM: normal conjunctiva. PERRL and EOM's intact. OROPHARYNX: no exudate, no erythema, lips, buccal mucosa, and tongue normal and mucous membranes are moist NECK: supple, no nuchal rigidity, no adenopathy, non-tender LUNGS: Clear to auscultation. Normal chest wall mechanics HEART: no murmurs, S1 normal and S2 normal ABDOMEN: abdomen soft, non-tender, normo-active bowel sounds, no masses, no rebound or guarding. UPPER EXTREMITIES: upper extremities are grossly normal. LOWER EXTREMITIES: No pitting edema. NEURO EXAM: Normal sensorium, cranial nerves II-XII intact, normal speech, no weakness of arms, no weakness of legs. No drift. Finger to nose intact. Gross sensation intact. MEDICAL DECISION MAKING: Patient is an 78-year-old male who presents ER for above-stated complaint. IV was established blood work was obtained. Labs show no significant leukocytosis or anemia. INR unremarkable. BMP with slightly elevated BUN. Glucose at 108. LFTs bilirubin was unremarkable. Troponin slightly elevated at 20. CT of the head as well as CT angios of the head and neck were negative. EKG was unremarkable. Discussed case with neurology and they recommended admission for further workup. Stroke alert was not called as patient had no focal deficits with only subjective paresthesias of the left arm and was not a TNK candidate. Consults/Care Managements Discussions: Per [facility] Triage Nursing notes reviewed. Limited review of prior medical records performed Vital Signs: reviewed and remarkable for HTN Differential diagnosis: Differential Diagnosis includes but is not limited to ischemic Stroke, hemorrhagic stroke, bells palsy, mass, neoplasm, migraine headache, seizure, subarachnoid hemorrhage, TIA, and transient global amnesia. ER treatment provided: See below Diagnostics interpreted by me include EKG and cardiac monitoring as listed below: -Cardiac Monitoring: An order was placed for continuous cardiac monitoring. The monitor shows a rate of 70 with sinus rhythm. -ECG: Sinus rhythm rate of 63 Left axis No PVCs QTc 407 -Laboratory studies:Interpreted by me as stated above in MDM and shown below. Imaging studies: Xrays: As interpreted by me:none CTs show: CT of the head per my preliminary interpretation showed no obvious large bleed CT angios of the head neck as well as Noncon was neck Procedures:none Critical Care: None Past Med/Surg History Problem List (Updated 03/18/24 @ 16:18 by Ric Mireles DO) Elevated troponin (Acute) Elevated glucose (Acute) Elevated BUN (Acute) Arm paresthesia, left (Acute) Vertebral artery narrowing Acute right-sided weakness Dyslipidemia TIA (transient ischemic attack) (Acute) Afib Stroke-like symptoms History of left knee replacement (Acute) Elevated troponin (Acute) Atrial fibrillation with RVR (Acute) BPH (benign prostatic hyperplasia) HTN (hypertension) (Acute) Presence of stent in coronary artery in patient with coronary artery disease (Acute) Medical History (Updated 03/18/24 @ 16:18 by Ric Mireles DO) Coronary artery disease Surgical History H/O heart artery stent History of appendectomy History of total left knee replacement Family History Mother , age 81 of dementia Alzheimer disease Father , age 91 of congestive heart failure. 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 Feels Safe at Home: Yes Assistive Devices: None Allergies Allergies Allergy/AdvReac Type Severity Reaction Status Date / Time Penicillins AdvReac Headache Verified 03/09/24 16:40 Home Meds Home Medications Medication Instructions Recorded Confirmed atorvastatin 40 mg tablet 40 mg PO HS 07/25/23 03/18/24 finasteride 5 mg tablet 5 mg PO QAM 07/25/23 03/18/24 isosorbide mononitrate 60 mg 120 mg PO QAM 07/25/23 03/18/24 tablet,extended release 24 hr losartan 50 mg tablet 50 mg PO HS 07/25/23 03/18/24 tamsulosin 0.4 mg capsule 0.4 mg PO HS 07/25/23 03/18/24 ascorbic acid (vitamin C) 500 mg 500 mg PO QAM 03/09/24 03/18/24 tablet cholecalciferol (vitamin D3) 125 125 mcg PO QAM 03/09/24 03/18/24 mcg (5,000 unit) tablet (Vitamin D3) coenzyme Q10 100 mg capsule (Co 100 mg PO QAM 03/09/24 03/18/24 Q-10) metoprolol succinate 100 mg 100 mg PO QAM 03/09/24 03/18/24 tablet,extended release 24 hr nitroglycerin 0.4 mg sublingual 0.4 mg sublingual UD PRN Chest Pain 03/09/24 03/18/24 tablet zinc acetate 50 mg (zinc) capsule 50 mg PO QAM 03/09/24 03/18/24 omeprazole 40 mg capsule,delayed 40 mg PO QAM 03/18/24 03/18/24 release Previous Rx's Medication Instructions Recorded apixaban 5 mg tablet (Eliquis) 5 mg PO BID 30 days #60 tabs 03/10/24 aspirin 81 mg tablet,delayed 81 mg PO QAM 30 days #30 tabs 03/10/24 release Results & Data (ED) Vital Signs Vital Signs - 24 hr 03/18/24 12:19 03/18/24 12:47 03/18/24 12:48 Temperature 36.8 C 36.5 C Temperature Source Oral Oral Pulse Rate 68 Pulse Rate [Apical] Pulse Rate [Finger] 59 L Respiratory Rate 16 13 Respiratory Effort / Characteristics Non-Labored Respiratory Depth Normal Respiratory Pattern Blood Pressure 157/92 H Blood Pressure [Right Arm] 140/70 Blood Pressure Mean 113 Blood Pressure Mean [Right Arm] 93 Blood Pressure Position [Right Arm] Semi-fowlers Pulse Oximetry 98 96 96 Oxygen Delivery Method Room Air Room Air Room Air Sepsis Recent Fever Within 48 Hours No Sepsis New/Unexplained Change in Mental Status N/A Sepsis Action Taken by Nursing No Action Required 03/18/24 13:01 03/18/24 15:00 03/18/24 15:03 Temperature Temperature Source Pulse Rate 83 Pulse Rate [Apical] Pulse Rate [Finger] 49 L 52 L Respiratory Rate 19 12 Respiratory Effort / Characteristics Non-Labored Spontaneous Non-Labored Respiratory Depth Normal Normal Respiratory Pattern Blood Pressure Blood Pressure [Right Arm] 120/64 120/64 Blood Pressure Mean Blood Pressure Mean [Right Arm] 82 82 Blood Pressure Position [Right Arm] Semi-fowlers Pulse Oximetry 96 96 Oxygen Delivery Method Room Air Room Air Sepsis Recent Fever Within 48 Hours Sepsis New/Unexplained Change in Mental Status Sepsis Action Taken by Nursing 03/18/24 15:16 Temperature Temperature Source Pulse Rate Pulse Rate [Apical] 49 L Pulse Rate [Finger] Respiratory Rate 19 Respiratory Effort / Characteristics Non-Labored Spontaneous Respiratory Depth Normal Respiratory Pattern Regular Blood Pressure Blood Pressure [Right Arm] 118/60 Blood Pressure Mean Blood Pressure Mean [Right Arm] 79 Blood Pressure Position [Right Arm] Pulse Oximetry 97 Oxygen Delivery Method Room Air Sepsis Recent Fever Within 48 Hours Sepsis New/Unexplained Change in Mental Status Sepsis Action Taken by Nursing Laboratory Data 03/18/24 12:39 03/18/24 12:39 Lab Results 03/18/24 03/18/24 03/18/24 Range/Units 12:34 12:39 12:41 WBC 8.90 (4.8-10.8) K/ul RBC 4.72 (4.70-6.10) M/uL Hgb 14.3 (14.0-18.0) g/dl POC Hgb 14.3 (14.0-18.0) g/dl Hct 42.9 (42.0-52.0) % POC Hct 42 (42-52) % MCV 90.9 (80.0-100.0) fL MCH 30.3 (25.0-34.0) pg MCHC 33.3 (32.0-36.0) g/dL RDW Std Deviation 46.3 (36.4-46.3) fL RDW Coeff of Giovanni 13.8 (11.5-14.5) % Plt Count 229 (130-400) K/uL MPV 10.4 (9.4-12.4) fL Immature Gran % (Auto) 0.2 % Neut % (Auto) 70.3 % Lymph % (Auto) 19.6 % [place] % (Auto) 7.5 % Eos % (Auto) 1.8 % Baso % (Auto) 0.6 % Neut # (Auto) 6.26 (1.40-6.50) K/uL Lymph # (Auto) 1.74 (1.20-3.40) K/uL [place] # (Auto) 0.67 H (0.11-0.59) K/uL Eos # (Auto) 0.16 (0.00-0.50) K/uL Baso # (Auto) 0.05 (0.00-0.20) K/uL Immature Gran # (Auto) 0.02 (0.01-0.20) K/uL PT 10.5 (9.0-12.0) Seconds INR 1.0 (0.9-1.1) APTT 26 (21-31) Seconds PTT Ratio 1.0 POC Sodium 139 (135-144) mmol/L Sodium 138 (136-145) mmol/L POC Potassium 4.1 (3.3-5.0) mmol/L Potassium 4.0 (3.5-5.1) mmol/L POC Chloride 103 (101-112) mmol/L Chloride 105 (98-107) mmol/L Carbon Dioxide 29 (21-32) mmol/L POC Total CO2 27 (24-31) mmol/L Anion Gap 4 (3-11) POC Anion Gap 14.0 L (16-25) mmol/L POC BUN 24 H (7-18) mg/dl BUN 25 H (6-23) mg/dl Creatinine 1.37 (0.6-1.4) mg/dl POC Creatinine 1.4 H (0.6-1.3) mg/dl Est Cr Clr Drug Dosing 50.5 ml/min Est GFR ( Amer) 56.1 ml/min Est GFR (Non-Af Amer) 48.4 ml/min BUN/Creatinine Ratio 18.2 (10-20) Glucose 108 H (70-99(Fasting)) mg/dl POC Glucose 103 H (70-99) mg/dl POC Glucose (other) 107 H (70-99) mg/dl Calcium 9.4 (8.6-10.3) mg/dl POC Ioniz Calcium Madhu 1.25 (1.12-1.32) mmol/l Magnesium 2.1 (1.7-2.4) mg/dl Total Bilirubin 0.9 (0.2-1.0) mg/dl AST 17 (13-39) U/L ALT 19 (7-52) U/L Alkaline Phosphatase 80 (34-104) U/L Troponin I High Sens 20.8 H (0-20) pg/ml Total Protein 7.4 (6.0-8.3) gm/dl Albumin 4.4 (3.4-5.0) gm/dl Globulin 3.0 (2.5-4.0) gm/dl Albumin/Globulin Ratio 1.5 (0.9-2) 03/18/24 Range/Units 15:20 WBC (4.8-10.8) K/ul RBC (4.70-6.10) M/uL Hgb (14.0-18.0) g/dl POC Hgb (14.0-18.0) g/dl Hct (42.0-52.0) % POC Hct (42-52) % MCV (80.0-100.0) fL MCH (25.0-34.0) pg MCHC (32.0-36.0) g/dL RDW Std Deviation (36.4-46.3) fL RDW Coeff of Giovanni (11.5-14.5) % Plt Count (130-400) K/uL MPV (9.4-12.4) fL Immature Gran % (Auto) % Neut % (Auto) % Lymph % (Auto) % [place] % (Auto) % Eos % (Auto) % Baso % (Auto) % Neut # (Auto) (1.40-6.50) K/uL Lymph # (Auto) (1.20-3.40) K/uL [place] # (Auto) (0.11-0.59) K/uL Eos # (Auto) (0.00-0.50) K/uL Baso # (Auto) (0.00-0.20) K/uL Immature Gran # (Auto) (0.01-0.20) K/uL PT (9.0-12.0) Seconds INR (0.9-1.1) APTT (21-31) Seconds PTT Ratio POC Sodium (135-144) mmol/L Sodium (136-145) mmol/L POC Potassium (3.3-5.0) mmol/L Potassium (3.5-5.1) mmol/L POC Chloride (101-112) mmol/L Chloride (98-107) mmol/L Carbon Dioxide (21-32) mmol/L POC Total CO2 (24-31) mmol/L Anion Gap (3-11) POC Anion Gap (16-25) mmol/L POC BUN (7-18) mg/dl BUN (6-23) mg/dl Creatinine (0.6-1.4) mg/dl POC Creatinine (0.6-1.3) mg/dl Est Cr Clr Drug Dosing ml/min Est GFR ( Amer) ml/min Est GFR (Non-Af Amer) ml/min BUN/Creatinine Ratio (10-20) Glucose (70-99(Fasting)) mg/dl POC Glucose (70-99) mg/dl POC Glucose (other) (70-99) mg/dl Calcium (8.6-10.3) mg/dl POC Ioniz Calcium Madhu (1.12-1.32) mmol/l Magnesium (1.7-2.4) mg/dl Total Bilirubin (0.2-1.0) mg/dl AST (13-39) U/L ALT (7-52) U/L Alkaline Phosphatase (34-104) U/L Troponin I High Sens 20.2 H (0-20) pg/ml Total Protein (6.0-8.3) gm/dl Albumin (3.4-5.0) gm/dl Globulin (2.5-4.0) gm/dl Albumin/Globulin Ratio (0.9-2) Administered Medications Discontinued Medications Ioversol (Optiray 320 125ml) 125 ml IV ONCE ONE Stop: 03/18/24 12:51 Last Admin: 03/18/24 12:50 Dose: 125 ml Documented By: MIKAL Imaging Data Radiologist's Impression: Head CT 03/18/24 12:[address] DOSE: HISTORY: neuro deficit, acute stroke suspected TECHNIQUE: Multiaxial CT images of the head were performed without the use of intravenous contrast. Automated exposure control was utilized for this study. A dose lowering technique was utilized adhering to the principles of ALARA. Comparison: None. Findings: The paranasal sinuses and mastoid air cells are clear. The calvarium and skull base are intact. The ventricles and sulci are within normal limits. There is no mass, hematoma, midline shift, or acute infarct. Impression: No acute intracranial abnormality. ACT 112: Negative or not required by law. Electronically signed by: Tanvir Loo M.D. 03/18/2024 1:12 PM Head CTA 03/18/24 12:34 CT angio head w con CLINICAL HISTORY: 78 years-old Male with neuro deficit, acute stroke suspected. Acute strokelike symptoms COMPARISON STUDY: Head CT of same day, brain MRI 03/09/2024, CT head 03/09/2024 TECHNIQUE: Following the IV administration of 125 cc of Optiray, CT angiogram of the brain was performed from the skull base to the vertex. Images are reviewed in the axial, sagittal, and coronal planes. 3-D MIPS images are created and assessed. IV contrast was administered without complication. All measurements were obtained according to NASCET criteria. A dose lowering technique was utilized adhering to the principles of ALARA. FINDINGS: CT ANGIOGRAM OF THE BRAIN: The imaged bilateral internal carotid arteries are patent. The bilateral anterior and middle cerebral arteries are also patent. The vertebrobasilar system and posterior cerebral arteries are widely patent. There is no aneurysm, high-grade stenosis, or proximal branch occlusion identified. Dural sinuses appear patent. IMPRESSION: Unremarkable CTA of the head. ACT 112: Negative or not required by law. The above report was generated using voice recognition software. It may contain grammatical, syntax or spelling errors. Electronically signed by: Constantino Merida M.D. 03/18/2024 1:36 PM Neck CTA 03/18/24 12:34 NECK CTA HISTORY: Left arm weakness. neuro deficit, acute stroke suspected TECHNIQUE: Multiaxial CT images of the neck were performed following the intravenous administration of contrast to evaluate the major cervical vessels. 3D/MIP images were also obtained. Sagittal and coronal reformats were reviewed. All measurements were calculated based on NASCET criteria. A dose lowering technique was utilized adhering to the principles of ALARA. COMPARISON STUDY: Neck CTA 03/09/2024. FINDINGS: The aortic arch and proximal great vessels are widely patent. There is no significant stenosis, occlusion, or dissection identified within the bilateral common carotid, internal carotid, or vertebral arteries. Mild calcified plaque within the bilateral carotid bifurcations. Questionable tiny linear filling defect within the left carotid bulb is likely due to mixing of contrast. IMPRESSION: No significant stenosis, occlusion, or dissection identified within the carotid or vertebral arteries. ACT 112: Negative or not required by law. Electronically signed by: Tanvir Loo M.D. 03/18/2024 1:14 PM Discharge Plan Visit Data Chief Complaint: Stroke/CVA Symptoms Stated Complaint: 1WK POST STROKE, CHEST PAIN, L ARM NUMBNESS ED Provider: Ric Mireles Discharge Problem: Arm paresthesia, left, Elevated BUN, Elevated glucose, Elevated troponin Forms Stand Alone Forms: My [facility] Prescriptions Prescriptions: No Action losartan 50 mg tablet 50 mg PO HS atorvastatin 40 mg tablet 40 mg PO HS isosorbide mononitrate 60 mg tablet extended release 24 hr 120 mg PO QAM tamsulosin 0.4 mg capsule 0.4 mg PO HS finasteride 5 mg tablet 5 mg PO QAM metoprolol succinate 100 mg tablet extended release 24 hr 100 mg PO QAM nitroglycerin 0.4 mg tablet, sublingual 0.4 mg sublingual UD PRN (Reason: Chest Pain) zinc acetate 50 mg (zinc) Capsule 50 mg PO QAM ascorbic acid (vitamin C) 500 mg Tablet 500 mg PO QAM coenzyme Q10 [Co Q-10] 100 mg Capsule 100 mg PO QAM cholecalciferol (vitamin D3) [Vitamin D3] 125 mcg (5,000 unit) Tablet 125 mcg PO QAM aspirin 81 mg Tablet,Delayed Release (Dr/Ec) 81 mg PO QAM 30 Days Qty: 30 0RF Eliquis 5 mg Tablet 5 mg PO BID 30 Days Qty: 60 0RF omeprazole 40 mg capsule,delayed release(DR/EC) 40 mg PO QAM Referrals Referrals: Osiel Givens DO [Primary Care Provider] -
[2024-03-18] MEDS: OPTIRAY 320 125ml IV ONE (12:50)
[2024-03-18 13:02] LABS: Basophils # (auto) 0.05 K/uL (0.00-0.20); Basophils % (auto) 0.6 %; Eosinophils # (auto) 0.16 K/uL (0.00-0.50); Eosinophils % (auto) 1.8 %; Hematocrit (blood only) 42.9 % (42.0-52.0); Hemoglobin 14.3 g/dl (14.0-18.0); Immature Granulocytes # (auto) 0.02 K/uL (0.01-0.20); Immature Granulocytes % (auto) 0.2 %; Lymphocytes # (auto) 1.74 K/uL (1.20-3.40); Lymphocytes % (auto) 19.6 %; Mean Corpuscular Hemoglobin 30.3 pg (25.0-34.0); Mean Corpuscular Hgb Conc 33.3 g/dL (32.0-36.0); Mean Corpuscular Volume 90.9 fL (80.0-100.0); Mean Platelet Volume 10.4 fL (9.4-12.4); Monocytes # (auto) 0.67 K/uL (0.11-0.59); Monocytes % (auto) 7.5 %; Neutrophils # (auto) 6.26 K/uL (1.40-6.50); Neutrophils % (auto) 70.3 %; Platelet Count 229 K/uL (130-400); RDW Coefficient of Variation 13.8 % (11.5-14.5); RDW Standard Deviation 46.3 fL (36.4-46.3); Red Blood Count 4.72 M/uL (4.70-6.10)
--- NOTE | 2024-03-18 13:13 | CT Scan Report ---
HEAD CT NONCONTRAST CT DOSE: HISTORY: neuro deficit, acute stroke suspected TECHNIQUE: Multiaxial CT images of the head were performed without the use of intravenous contrast. A utomated exposure control was utilized for this study. A dose lowering technique was utilized adheri ng to the principles of ALARA. Comparison: None. Findings: The paranasal sinuses and mastoid air cells are clear. The calvarium and skull base are int act. The ventricles and sulci are within normal limits. There is no mass, hematoma, midline shift, or acute infarct. Impression: No acute intracranial abnormality. ACT 112: Negative or not required by law. Electronically signed by: Tanvir Loo M.D. 03/18/2024 1:12 PM
[2024-03-18 13:14] LABS: Albumin Globulin Ratio 1.5 (0.9-2); Albumin Level 4.4 gm/dl (3.4-5.0); BUN Creatinine Ratio 18.2 (10-20); Bilirubin,Total 0.9 mg/dl (0.2-1.0); Calcium 9.4 mg/dl (8.6-10.3); Creatinine Clr Calc Pharmacy 50.5 ml/min; Est GFR (African American) 56.1 ml/min; Est GFR (Non-African American) 48.4 ml/min; Magnesium 2.1 mg/dl (1.7-2.4); Total Protein 7.4 gm/dl (6.0-8.3)
--- NOTE | 2024-03-18 13:16 | CT Scan Report ---
NECK CTA HISTORY: Left arm weakness. neuro deficit, acute stroke suspected TECHNIQUE: Multiaxial CT images of the neck were performed following the intravenous administration o f contrast to evaluate the major cervical vessels. 3D/MIP images were also obtained. Sagittal and cor onal reformats were reviewed. All measurements were calculated based on NASCET criteria. A dose low ering technique was utilized adhering to the principles of ALARA. COMPARISON STUDY: Neck CTA 03/09/2024. FINDINGS: The aortic arch and proximal great vessels are widely patent. There is no significant sten osis, occlusion, or dissection identified within the bilateral common carotid, internal carotid, or v ertebral arteries. Mild calcified plaque within the bilateral carotid bifurcations. Questionable tiny linear filling defect within the left carotid bulb is likely due to mixing of contrast. IMPRESSION: No significant stenosis, occlusion, or dissection identified within the carotid or vertebral arteries . ACT 112: Negative or not required by law. Electronically signed by: Tanvir Loo M.D. 03/18/2024 1:14 PM
[2024-03-18 13:20] LABS: Troponin I High Sensitivity 20.8 pg/ml (0-20)
[2024-03-18 13:28] LABS: Partial Thromboplastin Time 26 Seconds (21-31); Prothrombin Time 10.5 Seconds (9.0-12.0)
--- NOTE | 2024-03-18 13:38 | CT Scan Report ---
CT angio head w con CLINICAL HISTORY: 78 years-old Male with neuro deficit, acute stroke suspected. Acute strokelike s ymptoms COMPARISON STUDY: Head CT of same day, brain MRI 03/09/2024, CT head 03/09/2024 TECHNIQUE: Following the IV administration of 125 cc of Optiray, CT angiogram of the brain was perfor med from the skull base to the vertex. Images are reviewed in the axial, sagittal, and coronal planes . 3-D MIPS images are created and assessed. IV contrast was administered without complication. All me asurements were obtained according to NASCET criteria. A dose lowering technique was utilized adherin g to the principles of ALARA. FINDINGS: CT ANGIOGRAM OF THE BRAIN: The imaged bilateral internal carotid arteries are patent. The bilateral anterior and middle cerebral arteries are also patent. The vertebrobasilar system and posterior cerebral arteries are widely strong nt. There is no aneurysm, high-grade stenosis, or proximal branch occlusion identified. Dural sinuses appear patent. IMPRESSION: Unremarkable CTA of the head. ACT 112: Negative or not required by law. The above report was generated using voice recognition software. It may contain grammatical, syntax o r spelling errors. Electronically signed by: Constantino Merida M.D. 03/18/2024 1:36 PM
--- NOTE | 2024-03-18 14:59 | History & Physical Report ---
Date of Service March 18, 2024 Assessment & Plan (1) TIA (transient ischemic attack): Plan: Left arm numbness upon waking on 03/18 No leukocytosis; afebrile Hx of remote TIA 1 week ago Imaging today negative MRI brain ordered, pending Will defer second echocardiogram Vit B1 and B12 WNL on 03/10 Lyme negative on 03/10; patient denies rashes/tick bites Continue aspirin 81 mg daily Will add on Plavix 75 mg daily for DAPT Neurology consulted A.m. CBC, BMP, mag (2) Left upper extremity numbness: Plan: Neurochecks q4h for now Plan (as above) (3) Afib: Plan: Continue Eliquis, metoprolol (4) HTN (hypertension): Plan: Continue isosorbide mononitrate and losartan (5) Dyslipidemia: Plan: Continue atorvastatin Will defer additional fasting lipid panel Plan Disposition: Obs -admit to Medr telemetry Full code Heart healthy diet VTE PPx: On Eliquis History of Present Illness Chief Complaint: Stroke/CVA symptoms Primary Care Provider: DO Pablo Holt is an 78-year-old male with PMH of TIA, HTN, BPH, A-fib with RVR (on Eliquis), left TKA, strokelike symptoms, TIA, dyslipidemia, and CAD with ROLAND. He presented for strokelike symptoms (left-sided arm numbness) upon waking the morning of 03/18. He initially got up and thought he might have slept on his arm funny, but then the numbness progressed throughout the day. No tingling. No slurred speech, facial droop, or unilateral deficits. Patient then began developed a brain fog and believes he had some chest pain while riding in the car. He describes the chest pain as "pressure" across the middle of his chest; 3/10 at worst. This pressure lasted for several minutes. He does note that he sometimes confuses his GERD symptoms for angina. He denies recently doing any strenuous activity or pulling any muscles. He was feeling slightly confused while grocery shopping today, and so he decided to come back to the ED as he was told to return to the ED if he should develop any symptoms similar to his TIA from the week prior. Patient took all of his regular morning medications today; only recent change in medication was that he doubled his omeprazole dosing. He replies good compliance with taking his aspirin. No sick contacts. He denies any recent falls, fainting, or injuries to the head or neck. Besides a TIA last week, he has not had no prior history of CVAs. Patient denies smoking, tobacco use, alcohol use. He is bradycardic at 50 bpm at time of admission; vitals otherwise stable. ED course: ROS: Patient endorses left arm numbness, brain fog, generalized weakness, headache yesterday evening, and chronic neck pain. Patient denies fever, chills, night-sweats, body aches, rashes, tick bites, slurred speech, facial droop, unilateral deficits, changes in vision, chest pain, pleuritic CP, SOB, cough, abdominal pain, N/V/D, or numbness/tingling in face, legs, or right arm. Allergies Allergy/AdvReac Type Severity Reaction Status Date / Time Penicillins AdvReac Headache Verified 03/09/24 16:40 Home Medications Medication Instructions Recorded Confirmed Type atorvastatin 40 mg tablet 40 mg PO HS 07/25/23 03/18/24 History finasteride 5 mg tablet 5 mg PO QAM 07/25/23 03/18/24 History isosorbide mononitrate 60 mg 120 mg PO QAM 07/25/23 03/18/24 History tablet,extended release 24 hr losartan 50 mg tablet 50 mg PO HS 07/25/23 03/18/24 History tamsulosin 0.4 mg capsule 0.4 mg PO HS 07/25/23 03/18/24 History ascorbic acid (vitamin C) 500 mg 500 mg PO QAM 03/09/24 03/18/24 History tablet cholecalciferol (vitamin D3) 125 125 mcg PO QAM 03/09/24 03/18/24 History mcg (5,000 unit) tablet (Vitamin D3) coenzyme Q10 100 mg capsule (Co 100 mg PO QAM 03/09/24 03/18/24 History Q-10) metoprolol succinate 100 mg 100 mg PO QAM 03/09/24 03/18/24 History tablet,extended release 24 hr nitroglycerin 0.4 mg sublingual 0.4 mg sublingual UD PRN Chest Pain 03/09/24 03/18/24 History tablet zinc acetate 50 mg (zinc) capsule 50 mg PO QAM 03/09/24 03/18/24 History apixaban 5 mg tablet (Eliquis) 5 mg PO BID 30 days #60 tabs 03/10/24 03/18/24 Rx aspirin 81 mg tablet,delayed 81 mg PO QAM 30 days #30 tabs 03/10/24 03/18/24 Rx release omeprazole 40 mg capsule,delayed 40 mg PO QAM 03/18/24 03/18/24 History release Past Med/Surg History Problem List (Updated 03/18/24 @ 17:04 by Tanvir Samaniego PA-C) Left upper extremity numbness Elevated troponin (Acute) Elevated glucose (Acute) Elevated BUN (Acute) Arm paresthesia, left (Acute) Vertebral artery narrowing Acute right-sided weakness Dyslipidemia TIA (transient ischemic attack) (Acute) Afib Stroke-like symptoms History of left knee replacement (Acute) Elevated troponin (Acute) Atrial fibrillation with RVR (Acute) BPH (benign prostatic hyperplasia) HTN (hypertension) (Acute) Presence of stent in coronary artery in patient with coronary artery disease (Acute) Medical History (Updated 03/18/24 @ 17:04 by Tanvir Samaniego PA-C) Coronary artery disease Surgical History H/O heart artery stent History of appendectomy History of total left knee replacement Family History Mother , age 81 of dementia Alzheimer disease Father , age 91 of congestive heart failure. 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 Feels Safe at Home: Yes Assistive Devices: None Review of Systems Review of Systems: See HPI above Physical Exam Physical Exam: General: no acute distress; non-toxic appearing; well-nourished; cooperative HEENT: normocephalic, atraumatic; no scleral icterus; PERRLA w/ EOMs intact; moist mucus membrane; vision and hearing grossly intact; sensation in the face is intact and symmetric assessed at 3 separate dermatomes via light touch; patient demonstrates ability to smile, frown, and lift eyebrows bilaterally without deficits Neck: supple; no lymphadenopathy; trachea midline; patient demonstrates ability to shrug shoulders against resistance without pain Skin: warm, dry without signs of tenting; no cyanosis; no rashes, bruising, lesions, or erythema noted CV: chest wall NTP; irregularly irregular rhythm bradycardic at 50 bpm; potential 2/6 systolic ejection murmur auscultated at the second ICS MCL; pulses intact and symmetric at radial, DP, and PT Lungs: no acute respiratory distress; symmetrical chest wall expansion; clear breath sounds across all lung londono w/o adventitious sounds; no wheezing ABD: Soft, NTP; BS present; no rebound/guarding; no distention MSK: no tics or fasciculations; no edema noted in the LEs b/l, nonerythematous; 5/5 waxer floor strength bilaterally; patient demonstrates ability to wiggle toes, plantarflex/dorsiflex ankles with symmetric strength Neuro: A&Ox3; normal mood and affect; fluent speech; no focal deficits; no facial droop; sensation grossly intact in the LEs b/l; negative pronator drift Results & Data Results & Data Vital Signs (Past 12 Hours) Vital Signs Temp Pulse Pulse Resp BP BP Pulse Ox 03/18/24 13:01 83 03/18/24 12:48 36.5 C 59 L 13 140/70 96 03/18/24 12:47 96 03/18/24 12:19 36.8 C 68 16 157/92 H 98 O2 Del Method 03/18/24 13:01 03/18/24 12:48 Room Air 03/18/24 12:47 Room Air 03/18/24 12:19 Room Air Laboratory Results Abnormal lab results 03/18/24 03/18/24 03/18/24 Range/Units 12:34 12:39 12:41 [place] # (Auto) 0.67 H (0.11-0.59) K/uL POC Anion Gap 14.0 L (16-25) mmol/L POC BUN 24 H (7-18) mg/dl BUN 25 H (6-23) mg/dl POC Creatinine 1.4 H (0.6-1.3) mg/dl Glucose 108 H (70-99(Fasting)) mg/dl POC Glucose 103 H (70-99) mg/dl POC Glucose (other) 107 H (70-99) mg/dl Troponin I High Sens 20.8 H (0-20) pg/ml Diagnostic Findings Head CT 03/18/24 12:[address] DOSE: HISTORY: neuro deficit, acute stroke suspected TECHNIQUE: Multiaxial CT images of the head were performed without the use of intravenous contrast. Automated exposure control was utilized for this study. A dose lowering technique was utilized adhering to the principles of ALARA. Comparison: None. Findings: The paranasal sinuses and mastoid air cells are clear. The calvarium and skull base are intact. The ventricles and sulci are within normal limits. There is no mass, hematoma, midline shift, or acute infarct. Impression: No acute intracranial abnormality. ACT 112: Negative or not required by law. Electronically signed by: Tanvir Loo M.D. 03/18/2024 1:12 PM Head CTA 03/18/24 12:34 CT angio head w con CLINICAL HISTORY: 78 years-old Male with neuro deficit, acute stroke suspected. Acute strokelike symptoms COMPARISON STUDY: Head CT of same day, brain MRI 03/09/2024, CT head 03/09/2024 TECHNIQUE: Following the IV administration of 125 cc of Optiray, CT angiogram of the brain was performed from the skull base to the vertex. Images are reviewed in the axial, sagittal, and coronal planes. 3-D MIPS images are created and assessed. IV contrast was administered without complication. All measurements were obtained according to NASCET criteria. A dose lowering technique was utilized adhering to the principles of ALARA. FINDINGS: CT ANGIOGRAM OF THE BRAIN: The imaged bilateral internal carotid arteries are patent. The bilateral anterior and middle cerebral arteries are also patent. The vertebrobasilar system and posterior cerebral arteries are widely patent. There is no aneurysm, high-grade stenosis, or proximal branch occlusion identified. Dural sinuses appear patent. IMPRESSION: Unremarkable CTA of the head. ACT 112: Negative or not required by law. The above report was generated using voice recognition software. It may contain grammatical, syntax or spelling errors. Electronically signed by: Constantino Merida M.D. 03/18/2024 1:36 PM Neck CTA 03/18/24 12:34 NECK CTA HISTORY: Left arm weakness. neuro deficit, acute stroke suspected TECHNIQUE: Multiaxial CT images of the neck were performed following the intravenous administration of contrast to evaluate the major cervical vessels. 3D/MIP images were also obtained. Sagittal and coronal reformats were reviewed. All measurements were calculated based on NASCET criteria. A dose lowering technique was utilized adhering to the principles of ALARA. COMPARISON STUDY: Neck CTA 03/09/2024. FINDINGS: The aortic arch and proximal great vessels are widely patent. There is no significant stenosis, occlusion, or dissection identified within the bilateral common carotid, internal carotid, or vertebral arteries. Mild calcified plaque within the bilateral carotid bifurcations. Questionable tiny linear filling defect within the left carotid bulb is likely due to mixing of contrast. IMPRESSION: No significant stenosis, occlusion, or dissection identified within the carotid or vertebral arteries. ACT 112: Negative or not required by law. Electronically signed by: Tanvir Loo M.D. 03/18/2024 1:14 PM ECG Additional Comments: ECG revealed sinus rhythm with PACs at 63 bpm; QTc 407 Code Status & VTE Plan Code Status Full code VTE Prophylaxis Plan VTE Prophylaxis will be ordered: Yes Supervising Physician Co-Signing Physician Notes Patient seen and examined, chart reviewed, case discussed with Tanvir Samaniego PA-C and I agree with the assessment and plan as above except as otherwise noted Labs and images reviewed Pablo is an 78-year-old male with past medical history of A-fib on Eliquis, CAD with PCI on aspirin antiplatelet therapy, hyperlipidemia, vertebral artery narrowing, TIA who presented to the emergency department with left arm numbness which started abruptly at 9 AM with some grogginess/fatigue. No visual change. No focal weakness. CThead, CTAhead and neck with no acute findings and no evidence of dissection or high-grade occlusions. Patient was seen 02/2024 for stroke evaluation for acute right-sided weakness. Workup at that time was negative for stroke but MRI did show abnormal signal in midbrain centrally bilaterally. Neurology was consulted and suspected that this was likely a metabolic issue or Warnicke's, and can also be seen in carbon monoxide poisoning but is generally not consistent with stroke or tumor but may have also just been artifact. Patient was discharged at that time to continue aspirin/Eliquis, and to have a repeat MRI in 4 to 6 weeks. Acute left-sided paresthesia Abrupt onset at 9 AM. CThead, CTAhead and neck without acute findings and no hemodynamically significant stenosis Last echo 02/2024 with no evidence of shunt, LVEF 55 to 60% at that time. Case was discussed with neurology by the ER. Patient recommended for inpatient admission, evaluation, and repeat MRI. MRI subsequently without evidence of acute stroke. Elevated troponin, intermittent chest pain 20.8, chronically elevated around 2135. Repeat downtrending no chest pain on assessment. Patient does report he has some intermittent chest pain which is not clearly exertional or tight exercise but seems to come and go intermittently. He is very concerned about this and is pending enrollment with cardiology but it is several months before he can see Dr. Saab. He does have history of PCI/stent. Has been considered for stress test but was recommended not to do this mediately around a TIA. Nurse navigator consulted to help facilitate cardiology appointment. EKG does not show any signs of ACS on admission. He is anticoagulated and shows no signs of thromboembolic stroke. PG Care Time/CCT Total # of Minutes Spent Total Time Spent with Patient: Total time spent is greater than 50% in coordination of care (as documented) at patient's floor/unit and/or counseling patient: Coding [place] [address] INT INP/OBS CARE 3/75MIN Patient Type Established History Comprehensive Exam Comprehensive Medical Decision Making High Complexity Diagnoses TIA (transient ischemic attack) G45.9 Left upper extremity numbness R20.0 Afib I48.91 HTN (hypertension) I10 Hypertension type: unspecified Dyslipidemia E78.5 (4) HTN (hypertension) Hypertension type: unspecified Qualified Code(s): I10 - Essential (primary) hypertension
[2024-03-18 15:42] LABS: iSTAT Creatinine 1.4 mg/dl (0.6-1.3); iSTAT Hemoglobin 14.3 g/dl (14.0-18.0); iSTAT Ionized Calcium 1.25 mmol/l (1.12-1.32); iSTAT Potassium 4.1 mmol/L (3.3-5.0)
[2024-03-18] MEDS ORDERED: PHARMACIST DISCHARGE MED REC CONSULT PRN (16:29)
[2024-03-18] MEDS ORDERED: LORazepam 0.5 MG in SYRINGE 0.25 ML IV STA (17:07)
[2024-03-18] MEDS: LORazepam 1 MG/1 ML SYR ED Inj Use IV STA (17:26)
[2024-03-18] MEDS ORDERED: ACETAMINOPHEN 325 MG TAB PO PRN (18:38)
--- NOTE | 2024-03-18 18:56 | Magnetic Resonance Report ---
Brain MRI WITHOUT CONTRAST HISTORY: Left arm numbness TECHNIQUE: Multiplanar multisequence MRI of the brain was performed without the use of contrast. COMPARISON STUDY: Head CT 03/18/2024. FINDINGS: There is no hematoma, midline shift, or acute infarct. The paranasal sinuses are clear. The mastoid air cells are clear. The ventricles and sulci demonstrate mild age-related involutional gutiérrez ges. Scattered foci of T2 hyperintensity seen within the periventricular and subcortical white matter are nonspecific but suggestive of mild microvascular ischemic changes. The major vascular flow voids at the skull base are well-maintained. Prior bilateral placement. There is a 7 mm T2 hyperintense, T 1 hypointense lesion within the right parietal lobe on axial image 14. This demonstrates a hemosideri n rim with susceptibility artifact. Therefore, this favors a small cavernoma. No surrounding edema or acute intracranial hemorrhage identified. IMPRESSION: 1. No acute infarct or intracranial hemorrhage. 2. 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 No surrounding edema. ACT 112: Negative or not required by law. Electronically signed by: Tanvir Loo M.D. 03/18/2024 6:54 PM
[2024-03-18] MEDS: LOSARTAN POTASSIUM 50 MG TAB PO SCH (21:49)
[2024-03-18] MEDS: ATORVASTATIN 40 MG TAB PO SCH (21:49)
[2024-03-18] MEDS: APIXABAN 5 MG TABLET PO SCH (21:49)
[2024-03-18] MEDS: TAMSULOSIN HCL 0.4 MG CAP PO SCH (21:49)
--- NOTE | 2024-03-18 22:56 | Electrocardiogram Report ---
Test Reason : Blood Pressure : / mmHG Vent. Rate : 063 BPM Atrial Rate : 063 BPM P-R Int : 180 ms QRS Dur : 108 ms QT Int : 398 ms P-R-T Axes : 022 -14 022 degrees QTc Int : 407 ms Sinus rhythm with Premature atrial complexes Moderate voltage criteria for LVH, may be normal variant ( R in aVL , [place] product ) Borderline ECG When compared with ECG of 09-MAR-2024 14:50, Premature atrial complexes are now Present Confirmed by Fracisco Saab ([id number]) on 03/18/2024 10:56:21 PM Referred By: Confirmed By:Fracisco Saab
[2024-03-19 07:04] LABS: Basophils # (auto) 0.07 K/uL (0.00-0.20); Basophils % (auto) 0.7 %; Eosinophils # (auto) 0.24 K/uL (0.00-0.50); Eosinophils % (auto) 2.6 %; Hematocrit (blood only) 40.2 % (42.0-52.0); Hemoglobin 13.5 g/dl (14.0-18.0); Immature Granulocytes # (auto) 0.03 K/uL (0.01-0.20); Immature Granulocytes % (auto) 0.3 %; Lymphocytes # (auto) 2.39 K/uL (1.20-3.40); Lymphocytes % (auto) 25.4 %; Mean Corpuscular Hgb Conc 33.6 g/dL (32.0-36.0); Mean Corpuscular Volume 89.3 fL (80.0-100.0); Mean Platelet Volume 10.1 fL (9.4-12.4); Monocytes # (auto) 0.76 K/uL (0.11-0.59); Monocytes % (auto) 8.1 %; Neutrophils # (auto) 5.92 K/uL (1.40-6.50); Neutrophils % (auto) 62.9 %; Platelet Count 208 K/uL (130-400); RDW Coefficient of Variation 13.9 % (11.5-14.5); RDW Standard Deviation 45.4 fL (36.4-46.3); White Blood Count 9.41 K/ul (4.8-10.8)
[2024-03-19 07:10] LABS: BUN Creatinine Ratio 18.6 (10-20); Calcium 8.8 mg/dl (8.6-10.3); Creatinine Clr Calc Pharmacy 48.2 ml/min; Est GFR (African American) 54.6 ml/min; Est GFR (Non-African American) 47.1 ml/min; Magnesium 2.1 mg/dl (1.7-2.4); Potassium 4.5 mmol/L (3.5-5.1)
[2024-03-19] MEDS: PANTOprazole 40 MG TAB PO SCH (08:06)
[2024-03-19] MEDS: METOPROLOL SUCC 50MG EXT REL TAB PO SCH (08:06)
[2024-03-19] MEDS: FINASTERIDE 5 MG TAB PO SCH (08:07)
[2024-03-19] MEDS: ISOSORBIDE MONO EXTENDED REL 60 MG TABCR PO SCH (08:07)
[2024-03-19] MEDS: ASPIRIN 81 MG ECTAB PO SCH (08:07)
[2024-03-19] MEDS: CLOPIDOGREL BISULFATE 75 MG TAB PO SCH (08:07)
--- NOTE | 2024-03-19 09:04 | Neurology Consultation ---
Date of Consultation March 19, 2024 Assessment & Plan (1) Arm paresthesia, left: (2) Cervicalgia: (3) Cerebral cavernoma: (4) H/O transient ischemic attack involving anterior circulation: (5) Afib: Plan 78-year-old male diagnosed with atrial fibrillation in July 2023, started on Eliquis at that time, recent admission to [facility] on March 09 with TIA characterized by transient right hemiparesis resolving in less than 1 hour in the context of inadvertent noncompliance with Eliquis. Found to have an 8 mm cerebral cavernoma located within the cortex of the right parietal lobe and a probable artifactual area of mildly restricted diffusion centrally within the midbrain not seen on other sequences. Discharged on Eliquis and aspirin, presenting again to the hospital on March 18 with numbness isolated to the left upper limb upon awakening, seems to have a positional component, improved with holding the arm up behind his head while lying in bed, and is associated with cervicalgia which has been a longstanding intermittent problem and potentially suggestive of cervical radiculopathy. This patient does not have any significant abnormalities on his neurological examination this morning. I do not find any definitive motor or sensory deficits on examination. He does have a marginally upgoing toe on the left but does not have other associated upper motor neuron findings. Repeat imaging including CTA of the head and neck, brain MRI not significantly changed compared with his previous admission. No significant stenotic or occlusive lesion identified. Would recommend a cervical spine MRI without contrast for further assessment of possible cervical radiculopathy as an explanation for his current presentation. Consider outpatient EMG of the left upper limb as well. Given that he has a right parietal cavernoma and gastritis I would discontinue aspirin. He should continue with Eliquis in light of his atrial fibrillation. There does not appear to be any evidence, however, that either antithrombotic or oral anticoagulant therapy increases the risk of bleeding in individuals with cerebral cavernoma's. I would probably avoid using both aspirin and Eliquis together, however. Although the right parietal lobe cavernoma adjacent to the cortex does not appear to have bled recently, this abnormality should be monitored periodically as he requires long-term treatment with Eliquis. This patient's cavernoma could potentially increase the risk for focal onset seizures. However, his clinical presentation does not seem highly suggestive of a recent focal sensory seizure. Would consider obtaining an outpatient EEG. If this cavernoma were to prove symptomatic going forward, would recommend neurosurgical consultation. He does not have a known history of seizures. Current stroke guidelines recommend an LDL of 70 or less for secondary stroke risk reduction. Patient's LDL was 103 while taking atorvastatin 40 mg/day. Consider high intensity statin therapy, 80 mg/day, unless there is a specific medical contraindication. Patient should have a follow-up appointment with Dr. De Leon or one of our advanced practice clinicians already scheduled. Please call with any questions. History of Present Illness Reason for Consultation: recurrent TIA sxs Requesting Physician: Aden Attending Physician: Edin Dupont MD History of Present Illness The patient is an 78-year-old right-handed male with a chief complaint of left arm numbness. He awoke with a feeling of numbness affecting the left lateral forearm extending to the hand, he complains of some associated neck pain which has been a chronic intermittent problem which he attributes to arthritis. He initially felt that he may have slept on his arm in a funny position. There was no associated sensory disturbance of the face or leg, no associated weakness. Marcelo courtney went about his day with his normal activities in spite of the ongoing sensory disturbance in the left upper limb. However, he became increasingly worried that he may be having another stroke or TIA as he was just discharged from the hospital on March 10 for a probable TIA characterized by transient weakness of the right arm and leg resolving within an hour in the context of atrial fibrillation diagnosed this past July, but had accidentally not taken his Eliquis as he forgot to put this medication in his pillbox. A brain MRI at that time was negative for acute process, although an 8 mm cavernoma was identified at the cortex of the right parietal lobe. Also noted was an area of marginally increased restricted diffusion within the central midbrain measuring 10 mm in size, without corresponding abnormality on ADC map or other sequences. The finding was likely artifactual and could not be correlated with his clinical presentation. His Eliquis was restarted, aspirin was added. An up-to-date echocardiogram revealed no thrombus or other significant abnormalities, no change with previous study done in July 2023. A CTA of the head and neck at that time revealed no significant vascular abnormality, there was incidental note of moderate stenosis of the proximal left vertebral artery and mild stenosis of the proximal right vertebral artery, no abnormalities of the carotids or intracranial circulation noted. This morning, he continues to report a mild feeling of numbness affecting the left upper limb as well as mild neck pain which increases with turning his head to either side or looking up. He has found that holding his left arm up behind his head tends to alleviate some of the numbness in the left arm. He does not have any weakness. A repeat CTA of the head and neck completed yesterday were unremarkable. A repeat brain MRI completed yesterday was unchanged from the previous study done March 09. No evidence of new or interval bleeding of the previously identified right parietal lobe cavernoma, no evidence of acute infarct. The vague area of restricted diffusion within the midbrain is still observable, and likely artifactual. No evidence of acute or subacute stroke, no evidence of hemorrhage. I did independently review these images. Allergies Allergy/AdvReac Type Severity Reaction Status Date / Time Penicillins AdvReac Headache Verified 03/09/24 16:40 Home Medications Medication Instructions Recorded Confirmed Type atorvastatin 40 mg tablet 40 mg PO HS 07/25/23 03/18/24 History finasteride 5 mg tablet 5 mg PO QAM 07/25/23 03/18/24 History isosorbide mononitrate 60 mg 120 mg PO QAM 07/25/23 03/18/24 History tablet,extended release 24 hr losartan 50 mg tablet 50 mg PO HS 07/25/23 03/18/24 History tamsulosin 0.4 mg capsule 0.4 mg PO HS 07/25/23 03/18/24 History ascorbic acid (vitamin C) 500 mg 500 mg PO QAM 03/09/24 03/18/24 History tablet cholecalciferol (vitamin D3) 125 125 mcg PO QAM 03/09/24 03/18/24 History mcg (5,000 unit) tablet (Vitamin D3) coenzyme Q10 100 mg capsule (Co 100 mg PO QAM 03/09/24 03/18/24 History Q-10) metoprolol succinate 100 mg 100 mg PO QAM 03/09/24 03/18/24 History tablet,extended release 24 hr nitroglycerin 0.4 mg sublingual 0.4 mg sublingual UD PRN Chest Pain 03/09/24 03/18/24 History tablet zinc acetate 50 mg (zinc) capsule 50 mg PO QAM 03/09/24 03/18/24 History apixaban 5 mg tablet (Eliquis) 5 mg PO BID 30 days #60 tabs 03/10/24 03/18/24 Rx aspirin 81 mg tablet,delayed 81 mg PO QAM 30 days #30 tabs 03/10/24 03/18/24 Rx release omeprazole 40 mg capsule,delayed 40 mg PO QAM 03/18/24 03/18/24 History release Patient History Medical History (Updated 03/19/24 @ 09:30 by Abel Nicole MD) Coronary artery disease Surgical History H/O heart artery stent History of appendectomy History of total left knee replacement Family History Mother , age 81 of dementia Alzheimer disease Father , age 91 of congestive heart failure. 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 Feels Safe at Home: Yes Safety Concerns: Feels Safe At This Time Assistive Devices: None Review of Systems Constitutional: no fever and no chills Eyes: no blind spots and no diplopia Ear, Nose, Mouth, Throat: no hearing loss Respiratory: no cough and no dyspnea Cardiovascular: no chest pain and no palpitations Gastrointestinal: + heartburn Genitourinary: no dysuria or no urinary incontinence Musculoskeletal: + back pain and + neck pain; no myalgia and no muscle weakness Integumentary: no rash and no lesions Neurologic: as per Subjective / HPI; no gait abnormality, no unsteadiness, no localized weakness, no lack of coordination, no tremor(s), no abnormal movements, no seizure-like activity, no syncope, no headache(s), no abnormal speech, no confusion and no memory loss Psychiatric: no depression and no anxiety Hematologic / Lymphatic: no easy bleeding and no easy bruising Exam (Neuro) Constitutional: well developed and well nourished; no acute distress Eyes: normal visual londono by confrontation, PERRL and EOM intact bilaterally; no nystagmus Neurologic: Oriented to:: Person, Place and Time Memory: Short Term Intact and Remote Intact Attention: Span Intact and Concentration Intact Speech Fluency: negative Dysarthria or Dysfluency Speech Aphasia: negative Aphasia Fund of Knowledge: Current Events, Past History and Vocabulary Cranial Nerves: Normal II, III, IV, , V, VII, VIII, IX, X, XI and XII Motor Strength: Normal Lower Extremities and Normal Upper Extremities Motor Tone: Normal Lower Extremities and Normal Upper Extremities Muscle Bulk/Involuntary Movements: No Involuntary Movements; negative Muscle Atrophy Sensation: Light Touch Intact, Pain/Temperature Intact and Proprioception Intact Coordination: Normal; negative Limited Balance, Dysdiadochokinesia, Finger-Nose Abnormal or Heel-Banks Abnormal Deep Tendon Reflexes: Rt Triceps: 1+, Lt Triceps: 2+, Rt Biceps: 1+, Lt Biceps: 1+, Rt Brachioradialis: 1+, Lt Brachioradialis: 1+, Rt Patellar: 2+, Lt Patellar: 1+ (Left total knee arthroplasty), Rt Ankle: 1+ and Lt Ankle: 1+ Special Tests: Babinski Present (Left great toe marginally upgoing) Gait: Normal Station and Gait Results & Data Vital Signs (Past 12 Hours) Vital Signs Temp Pulse Pulse Resp BP BP Pulse Ox 03/19/24 03:23 36.5 C 59 L 14 128/67 96 03/18/24 23:09 52 L 128/68 94 03/18/24 22:02 57 L 03/18/24 21:46 36.7 C 56 L 16 129/74 96 O2 Del Method 03/19/24 03:23 Room Air 03/18/24 23:09 Room Air 03/18/24 22:02 03/18/24 21:46 Room Air Laboratory Results WBC 9.41, hemoglobin 13.5, hematocrit 40.2, MCV 89.3, platelet count 208, sodium 139, potassium 4.5, BUN 26, creatinine 1.4, glucose 92, calcium 8.8, magnesium 2.1, AST 17, ALT 19. Lipid panel from March 10 reviewed, cholesterol 172, LDL 103, VLDL 18, HDL 51. Additional labs from that time reviewed as well, thiamine level 125, vitamin B12 369, TSH 1.761. Diagnostic Findings CTA and brain MRI results are as described in the HPI, I independently reviewed these images. Electrocardiogram completed yesterday revealed a sinus rhythm with premature atrial complexes. An echocardiogram completed March 10, 2024 is as described in the HPI. Coding Level of Care Code 97150 INT INP/OBS CARE 3/75MIN Diagnoses Arm paresthesia, left R20.2 Cervicalgia M54.2 Cerebral cavernoma Q28.3 H/O transient ischemic attack involving anterior circulation Z86.73 Afib I48.91 Time Spent (min) 90 Comment Total time includes patient contact, chart review, counseling, note preparation
--- NOTE | 2024-03-19 10:16 | Hospitalist Progress Note ---
Date of Service March 19, 2024 Assessment & Plan (1) TIA (transient ischemic attack): Plan: Patient presented with left arm numbness 03/18/24, initially felt that this may have been due to sleeping on his arm in a funny position, however sensory disturbance continued through the day which concerned the patient. - Recently discharged from [facility] on 03/10/2024 for probable TIA. Eliquis resumed, aspirin added at that time. - Echo 03/10/2024: EF = 55-60%. No thrombus or other significant abnormalities, no change with previous study done in July 2023. - Vit B1 and B12 WNL on 03/10. - Lyme negative on 03/10; patient denies rashes/tick bites. - No leukocytosis, afebrile on admission. - Repeat CTA of head and neck on admission were unremarkable. - Repeat brain MRI on admission was unchanged from previous study done 03/09/2024. No evidence of new or interval bleeding from previously identified right parietal lobe cavernoma, no evidence of acute infarct. No evidence of acute or subacute stroke, no evidence of hemorrhage. 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 -- Per neurology, "Although the right parietal lobe cavernoma adjacent to the cortex does not appear to have bled recently, this abnormality should be mon itored periodically as he requires long-term treatment with Eliquis. This patient's cavernoma could potentially increase the risk for focal onset seizures. However, his clinical presentation does not seem highly suggestive of a recent focal sensory seizure. Would consider obtaining an outpatient EEG. If this cavernoma were to prove symptomatic going forward, would recommend neurosurgical consultation." - Continue Plavix 75 mg daily. - Discontinued Aspirin 81 mg daily 03/19/24 due to right parietal cavernoma and gastritis. Continue Eliquis for A-fib. - Neurology consulted, appreciate recommendations. -- Recommending cervical spine MRI without contrast for further assessment of possible cervical radiculopathy as an explanation for his current presentation. -- Recommending outpatient EMG of the left upper limb. -- Consider outpatient EEG as cavernoma could potentially increase the risk for focal onset seizures, although his clinical presentation does not seem highly suggestive of a recent focal sensory seizure. -- Consider increasing to high intensity statin therapy (80 mg daily) unless there is a specific medical contraindication for secondary stroke risk reduction. (2) Left upper extremity numbness: Plan: Neurochecks q4h for now Plan (as above) (3) Dyslipidemia: Plan: Continue atorvastatin Consider increasing to high intensity statin therapy (80 mg daily) unless there is a specific medical contraindication for secondary stroke risk reduction. (4) Afib: Plan: Continue Eliquis, metoprolol (5) HTN (hypertension): Plan: Continue isosorbide mononitrate and losartan Plan CODE STATUS: Full code VTE PPx: On Eliquis Admission and Anticipated Discharge Date Admission Date: March 18, 2024 Physical Exam Physical Exam: General: no acute distress; non-toxic appearing; well-nourished; cooperative HEENT: normocephalic, atraumatic; no scleral icterus; PERRLA w/ EOMs intact; moist mucus membrane; vision and hearing grossly intact; sensation in the face is intact and symmetric assessed at 3 separate dermatomes via light touch; patient demonstrates ability to smile, frown, and lift eyebrows bilaterally without deficits Neck: supple; no lymphadenopathy; trachea midline; patient demonstrates ability to shrug shoulders against resistance without pain Skin: warm, dry without signs of tenting; no cyanosis; no rashes, bruising, lesions, or erythema noted CV: chest wall NTP; irregularly irregular rhythm bradycardic at 50 bpm; potential 2/6 systolic ejection murmur auscultated at the second ICS MCL; pulses intact and symmetric at radial, DP, and PT Lungs: no acute respiratory distress; symmetrical chest wall expansion; clear breath sounds across all lung londono w/o adventitious sounds; no wheezing ABD: Soft, NTP; BS present; no rebound/guarding; no distention MSK: no tics or fasciculations; no edema noted in the LEs b/l, nonerythematous; 5/5 sourcing coordinator strength bilaterally; patient demonstrates ability to wiggle toes, plantarflex/dorsiflex ankles with symmetric strength Neuro: A&Ox3; normal mood and affect; fluent speech; no focal deficits; no facial droop; sensation grossly intact in the LEs b/l; negative pronator drift Results & Data Results & Data Vital Signs (Past 12 Hours) Vital Signs Temp Pulse Pulse Resp BP BP Pulse Ox 03/19/24 07:31 36.5 C 59 L 18 130/72 97 03/19/24 06:00 49 L 03/19/24 03:23 36.5 C 59 L 14 128/67 96 03/18/24 23:09 52 L 128/68 94 03/18/24 22:02 57 L O2 Del Method 03/19/24 07:31 Room Air 03/19/24 06:00 03/19/24 03:23 Room Air 03/18/24 23:09 Room Air 03/18/24 22:02 Laboratory Results Reviewed CBC Reviewed CMP Diagnostic Findings Reviewed brain MRI 03/18/2024 FINDINGS: There is no hematoma, midline shift, or acute infarct. The paranasal sinuses are clear. The mastoid air cells are clear. The ventricles and sulci demonstrate mild age-related involutional changes. Scattered foci of T2 hyperintensity seen within the periventricular and subcortical white matter are nonspecific but suggestive of mild microvascular ischemic changes. The major vascular flow voids at the skull base are well-maintained. Prior bilateral placement. There is a 7 mm T2 hyperintense, T1 hypointense lesion within the right parietal lobe on axial image 14. This demonstrates a hemosiderin rim with susceptibility artifact. Therefore, this favors a small cavernoma. No surrounding edema or acute intracranial hemorrhage identified. IMPRESSION: 1. No acute infarct or intracranial hemorrhage. 2. 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 No surrounding edema. Reviewed neck CTA 03/18/2024 FINDINGS: The aortic arch and proximal great vessels are widely patent. There is no significant stenosis, occlusion, or dissection identified within the bilateral common carotid, internal carotid, or vertebral arteries. Mild calcified plaque within the bilateral carotid bifurcations. Questionable tiny linear filling defect within the left carotid bulb is likely due to mixing of contrast. IMPRESSION: No significant stenosis, occlusion, or dissection identified within the carotid or vertebral arteries. Reviewed head CTA 03/18/2024 FINDINGS: The imaged bilateral internal carotid arteries are patent. The bilateral anterior and middle cerebral arteries are also patent. The vertebrobasilar system and posterior cerebral arteries are widely patent. There is no aneurysm, high-grade stenosis, or proximal branch occlusion identified. Dural sinuses appear patent. IMPRESSION: Unremarkable CTA of the head. Reviewed head CT 03/22/2024 Findings: The paranasal sinuses and mastoid air cells are clear. The calvarium and skull base are intact. The ventricles and sulci are within normal limits. There is no mass, hematoma, midline shift, or acute infarct. Impression: No acute intracranial abnormality. PG Care Time/CCT Total # of Minutes Spent Total Time Spent with Patient: Total time spent is greater than 50% in coordination of care (as documented) at patient's floor/unit and/or counseling patient: Coding Diagnoses TIA (transient ischemic attack) G45.9 Left upper extremity numbness R20.0 Dyslipidemia E78.5 Afib I48.91 HTN (hypertension) I10 Hypertension type: unspecified (5) HTN (hypertension) Hypertension type: unspecified Qualified Code(s): I10 - Essential (primary) hypertension
[2024-03-19] MEDS: LORazepam 0.5 MG TAB PO STA (10:55)
[2024-03-19] MEDS ORDERED: STROKE PATIENT DISCHARGE STA (14:40)
--- NOTE | 2024-03-19 16:32 | Magnetic Resonance Report ---
MRI OF THE CERVICAL SPINE WITHOUT IV CONTRAST CLINICAL HISTORY: Left arm numbness. Neck pain. COMPARISON STUDY: CT angiogram of the neck dated 03/18/2024. TECHNIQUE: MRI of the cervical spine was performed utilizing various T1 and T2-weighted sequences in the axial and sagittal planes. IV contrast was not administered for this examination. FINDINGS: Cervical spine: Marrow signal intensity is heterogeneous. Vertebral body height and alignment are reagan ntained throughout the cervical spine. There is straightening of the cervical lordosis. Productive de generative change is noted at the atlantodens articulation. The spinous processes appear intact. Mild chronic degenerative endplate change is noted at several levels. There is mild endplate edema at C2- C3, C3-C4, and C5-C6. No destructive bony lesion is seen. Intervertebral discs: Disc desiccation and loss of height is seen throughout the cervical spine. Loss of height is moderate at all levels between C3-C4 and C6-C7. Spinal cord: The cervical cord is normal in morphology and signal intensity. C2-C3: A posterior disc osteophyte complex effaces the ventral subarachnoid space. Uncovertebral and facet arthropathy contribute to moderate left, greater than right neural foraminal stenosis. C3-C4: A posterior disc osteophyte complex abuts the ventral cord. The minimum AP canal diameter claritza ures 7.5 mm. There are bilateral disc bulges, right larger than left. In conjunction with facet arthr opathy, there is severe bilateral neural foraminal stenosis, greater on the right. This likely imping es on the exiting bilateral C4 nerve roots. C4-C5: A posterior disc osteophyte complex abuts the ventral cord. Lateral disc bulge is seen bilater ally. In conjunction with facet arthropathy, there is severe bilateral neural foraminal stenosis, lef t greater than right. There is likely impingement of the exiting bilateral C5 nerve roots. C5-C6: A posterior disc osteophyte complex effaces the ventral subarachnoid space. Uncovertebral and facet arthropathy contribute to [id number] left and [id number] right neural foraminal s tenosis. C6-C7: A posterior disc osteophyte complex minimally effaces the ventral subarachnoid space. Uncovert ebral and facet arthropathy contribute to moderate left neural foraminal stenosis. The right neural f oramen is patent. C7-T1: Unremarkable. Soft tissues: The prevertebral and paraspinous soft tissues are within normal limits. Brain parenchyma: The imaged brain parenchyma at the skull base is normal as visualized. IMPRESSION: 1. Multilevel cervical spondylosis as above. See discussion for detailed level by level analysis. 2. The cervical cord is normal in morphology and signal intensity. 3. Degenerative disc disease as above with multilevel endplate change. 4. No destructive bony process is seen. Dictated: 03/19/2024 11:50 AM Transcribed: 03/19/2024 12:18 PM César [id number] [email or web address] Electronically signed by: Meng Sharpe M.D. 03/19/2024 4:29 PM
--- OUTSIDE RECORDS SUMMARY | 2024-03-19 18:09 | External Medical Summary | Continuity of Care Document ---
Author Name Unknown Organization [facility] [id number] [place] [address] [id number] Care Team Providers Care Bike Mechanic Name Role Phone Maddison Carl Primary Care Physician [phone] Encounter [facility] [id number] Date(s): 03/16/24 - 03/16/24 [facility] [address] [facility] [address] [address] [phone] Encounter Diagnosis TIA (transient ischemic attack)(Discharge Diagnosis) - 03/16/24 Afib(Discharge Diagnosis) - 03/16/24 GERD (gastroesophageal reflux disease)(Discharge Diagnosis) - 03/16/24 Exertional chest pain(Discharge Diagnosis) - 03/17/24 Discharge Disposition: Home or Self Care Attending Physician: DO Amato Gretchen Elizabeth Allergies, Adverse Reactions, Alerts Substance Criticality Severity Reaction Reaction Severity Status penicillin Headache Active Assessment and Plan Extracted from: Title:Office Visit Note: TIA, Chest Pain Author: DO Carl Paige M Date:03/16/24 1.TIA (transient ischemic attack) Undifferentiated new problem with uncertain prognosis Goal:Resolution Data:external notes including: _MNMCDischargeSummary Plan: Discussed importance of taking Eliquis as prescribed twice daily, as well as aspirin as instructedby neurology. Follow up with [facility] in April. Discussed importance of going to ER at first sign, discussed stroke red flag symptoms. 2.Afib Chronic condition, stable Goal:Control rate and remain anticoagulated Data:N/A Plan: Discussed chronicity of atrial fibrillation and how treatment is focused on decreasing likelihood of adverse outcomes by controlling heart rate and remaining on anticoagulation. Patient has interest in switching from Eliquis to Xarelto as it is once per day dosing, however will defer this decision to cardiology. As requested, [facility] 3.GERD (gastroesophageal reflux disease) Chronic condition exacerbated/progressive/side effects of treatment Goal:Resolution Data:N/A Plan: Symptoms have worsened over the past several months, has reflux despite taking omeprazole and OTC antacids. Will send in a new prescription for 40mg of omeprazole (higher dosage) to see if symptoms respond to higher PPI. Patient is currently scheduled for colonoscopy due to ongoing constipation and history of polyps- however in light of his recent TIA (and would require pausing Eliquis prior), after discussion with patient and his and daughter, we will postpone the colonoscopy. Could reconsider timing of colonoscopy (plus possible upper endoscopy due to worsening GERD) in the next6 months. 4.Exertional chest pain Undifferentiated new problem with uncertain prognosis Goal:Resolution Data:external notes including: _MNMCDischarge Summary Plan: Has had several months of chest pain with exertion (i.e. walking up steep hills in neighborhood), generally resolves with rest. Patient did not mention this while hospitalized, but had mild troponin elevation in hospital and echocardiogram completed showed no significant changes from prior echo in July 2023. [facility], encouraged patient to call office and discuss with custom clothier about ordering new stress test which could potentially be completed her at [facility]. As patient did not have any chest pain today in office and symptoms havebeen ongoing for several months (withunchanged echocardiogram last week), did not obtainEKG todayin office. Discussed red flag signs for chest pain that would indicate need for immediate evaluation in ED. Immunizations Given and Recorded Vaccine Date Status Refusal Reason tetanus/diphtheria/pertuss, acel (Tdap) 1 05/12/23 Recorded SARS-CoV-2 (COVID-19) mRNA-1273 vaccine 2 08/30/21 Recorded SARS-CoV-2 (COVID-19) mRNA-1273 vaccine 3 12/12/20 Recorded SARS-CoV-2 (COVID-19) mRNA-1273 vaccine 4 11/14/20 Recorded zoster vaccine, inactivated 5 07/26/19 Recorded zoster vaccine, inactivated 6 04/06/19 Recorded pneumococcal 13-valent vaccine 7 02/19/15 Recorded 1Result Comment: 2023-10-06: Historical information-source unspecified 2Result Comment: 2023-10-06: Historical information-source unspecified 3Result Comment: 2023-10-06: Historical information-source unspecified 4Result Comment: 2023-10-06: Historical information-source unspecified 5Result Comment: 2023-10-06: Historical information-source unspecified 6Result Comment: 2023-10-06: Historical information-source unspecified 7Result Comment: 2023-10-06: Historical information-source unspecified Medications ascorbic acid 500 mg oral tablet Start: 08/07/23 2:35:00 PM EDT, 1 tab, PO, Daily Start Date: 08/07/23 Status: Ordered atorvastatin 40 mg oral tablet Start: 08/07/23 2:33:00 PM EDT, 1 tab, PO, qhs Start Date: 08/07/23 Status: Ordered Coenzyme Q10 200 mg oral capsule Start: 08/07/23 2:35:00 PM EDT Start Date: 08/07/23 Status: Ordered Eliquis 5 mg oral tablet Start: 09/02/23 10:26:00 AM EST, 1 tab, PO, bid, Disp# 180 tab, Refills: 3, Pharmacy: [facility]/pharmacy #[id number] Start Date: 09/02/23 Status: Ordered Eliquis 5 mg oral tablet Start: 09/02/23 11:12:00 AM EST, 1 tab, PO, bid, Disp# 180 tab, Refills: 3 Start Date: 09/02/23 Stop Date: 08/27/24 Status: Ordered Eliquis 5 mg oral tablet Start: 10/07/23 11:14:00 AM EST, 1 tab, PO, bid, Disp# 180 tab, Refills: 3 Start Date: 10/07/23 Stop Date: 10/01/24 Status: Ordered finasteride 5 mg oral tablet Start: 08/07/23 2:32:00 PM EDT, 1 tab, PO, Daily Start Date: 08/07/23 Status: Ordered isosorbide mononitrate 60 mg oral tablet, extended release Start: 08/07/23 2:31:00 PM EDT, 1 tab, PO, qAM Start Date: 08/07/23 Status: Ordered losartan 50 mg oral tablet Start: 08/07/23 2:33:00 PM EDT, 1 tab, PO, Daily Start Date: 08/07/23 Status: Ordered metoprolol succinate 100 mg oral tablet, extended release Start: 08/07/23 2:30:00 PM EDT, 1 tab, PO, Daily Start Date: 08/07/23 Status: Ordered nitroglycerin 0.4 mg sublingual tablet Start: 08/07/23 2:34:00 PM EDT, 1 tab, SL, q5min, Disp# 25 tab, PRN: as needed for chest pain Start Date: 08/07/23 Status: Ordered omeprazole 20 mg oral delayed release capsule Start: 08/07/23 2:32:00 PM EDT, 1 cap, PO, Daily Start Date: 08/07/23 Status: Ordered omeprazole 40 mg oral delayed release capsule Start: 03/16/24 11:01:00 AM EDT, 1 cap, PO, Daily, Disp# 30 cap, Refills: 11, Pharmacy: [facility]/pharmacy #[id number] Start Date: 03/16/24 Stop Date: 03/11/25 Status: Ordered tamsulosin 0.4 mg oral capsule Start: 08/07/23 2:31:00 PM EDT, 1 cap, PO, Daily Start Date: 08/07/23 Status: Ordered zinc (as gluconate) 50 mg oral tablet Start: 08/07/23 2:34:00 PM EDT Start Date: 08/07/23 Status: Ordered Mental Status 03/16/24 Barriers to Learning one year None evide nt Mandatory Health Literacy Documentation Yes Health Literacy Communication Barriers N ever Primary Language Israeli Problem List Condition Confirmation Course Effective Dates Status H ealth Status Informant Atrial fibrillation Confirmed Active BPH (benign prostatic hyperplasia) Confirmed Active Chronic renal insufficiency, stage III (moderate) Confirmed Active Atherosclerosis of [place] coronary artery Confirmed Active GERD (gastroesophageal reflux disease) Confirmed Active History of shingles Confirmed Active Hypertension Confirmed Active Impaired fasting glucose Confirmed Active Lumbar back pain Confirmed Active Arthritis of lumbar spine Confirmed Active Lumbar disc disease with radiculopathy Confirmed Active Ophthalmic migraine Confirmed Active Colon polyps Confirmed Active TIA (transient ischemic attack) Confirmed Active Diagnosis Diagnosis Type Effective Dates Health Status Clinical Service Informant Afib Discharge Diagnosis 03/16/24 Non-Specified TIA (transient ischemic attack) Discharge Diagnosis 03/16/24 Non-Specified GERD (gastroesophageal reflux disease) Discharge Diagnosis 03/16/24 Non-Specified Exertional chest pain Discharge Diagnosis 03/17/24 Non-Specified Procedures Procedure Date Related Diagnosis Body Site Status Stress test ECG - treadmill 2021 Completed Stress testing using pharmacologic-induced stress 2021 Com pleted TURP - Transurethral resecti on of prostate 2018 Completed Colonoscopy 11/28/13 Completed PT W/ CORONARY ARTERY STENT 2012 Completed APPENDECTOMY Completed Cataract extraction Compl eted INCISE EXTERNAL HEMORRHOID Completed REMOVAL OF TONSILS Comple halina Vital Signs Most recent to oldest [Reference Range]: 1 Patient Weight 95.6 kg (03/16/24 9:55 AM) Temperature [36.5-37.9 DegC] 36.6 DegC (03/16/24 9:55 AM) Blood Pressure 138/68mmHg (03/16/24 9:55 AM) BP Location # 1 Left Arm (03/16/24 9:55 AM) Social History Social History Type Response Tobacco Former smoker, Smoke less tobacco use: Former smokeless tobacco user, quit more than 1 year ago. Stopped age About 43 Years. Smoking Status Never smoked cigaret azeb Sex Male FCM Outpt Note * DO Carl Paige M: PERFORM DO Huff Allison B: MODIFY Event Display: FCM Outpt Note Authored Date: [id number] Chief Complaint Pt here for [facility] admission f/u for possible TIA. History of Present Illness Pablo is a 78 year-old male who presents today for hospital discharge follow up. He was admitted at [facility] from 03/09-03/10 for TIA. He is accompanied today by his , Germania, and his daughter, She. -Prior to arrival at hospital, patient experienced right sided upper and lower extremity weakness that resolved in <1 hour -Patient reported he had inadvertently missed taking his Eliquis for most of the week prior to his admission as he had not added it to his weekly pill container -CT angiography showedmild nonspecific proximal vertebral artery stenosis L>R. MRI Brain didnot show acute stroke, based on history of symptoms was diagnosed with TIA. Discharged on home Eliquis plus aspirin -Requests referral for local custom clothier (Dr. Saab at [facility]) as his custom clothier at [facility] is retiring -Also notes intermittent chest pain with exertion, ex. with walking up steep hill in neighborhood. Although other times can walk up similar inclines without chest pain. Symptoms improve with rest.Has been ongoing for several months although is more frequent now -Last stress test was completed >1 year ago -Also notes increased acid reflux symptoms despite taking PPI and antacids, states he has been toldhe has a hiatal hernia before Physical Exam Vitals & Measurements T:36.6C BP:138/68 SpO2:96% WT:95.600kg(Dosing) WT:95.6kg PHQ2 Data(Data Documented on:03/16/2024 09:52) Emotional health assessment NEGATIVE General:Alert and oriented, No acute distress HEENT:Normocephalic, Nl gross hearing, moist oral mucosa Cardiovascular:Normal rate, Regular rhythm.Limbswellperfused. Respiratory:Lungs are clear to auscultation, Respirations are non-labored, Breath sounds are equal Integumentary:Warm, Dry, [place]. Psych:Mood-affect congruence. Speech is of normal pace and content Assessment/Plan 1.TIA (transient ischemic attack) Undifferentiated new problem with uncertain prognosis Goal:Resolution Data:external notes including: _MNMCDischargeSummary Plan: Discussed importance of taking Eliquis as prescribed twice daily, as well as aspirin as instructedby neurology. Follow up with [facility] in April. Discussed importance of going to ER at first sign, discussed stroke red flag symptoms. 2.Afib Chronic condition, stable Goal:Control rate and remain anticoagulated Data:N/A Plan: Discussed chronicity of atrial fibrillation and how treatment is focused on decreasing likelihood of adverse outcomes by controlling heart rate and remaining on anticoagulation. Patient has interest in switching from Eliquis to Xarelto as it is once per day dosing, however will defer this decision to cardiology. As requested, I have placed [facility] 3.GERD (gastroesophageal reflux disease) Chronic condition exacerbated/progressive/side effects of treatment Goal:Resolution Data:N/A Plan: Symptoms have worsened over the past several months, has reflux despite taking omeprazole andOTC antacids. Will send in a new prescription for 40mg of omeprazole (higher dosage) to see if symptoms respond to higher PPI. Patient is currently scheduled for colonoscopy due to ongoing constipation and history of polyps- however in light of his recent TIA (and would require pausing Eliquis prior), after discussion with patient and his and daughter, we will postpone the colonoscopy. Couldreconsider timing of colonoscopy (plus possible upper endoscopy due to worsening GERD) in the next6 months. 4.Exertional chest pain Undifferentiated new problem with uncertain prognosis Goal:Resolution Data:external notes including: [facility] Plan: Has had several months of chest pain with exertion (i.e. walking up steep hills in neighborhood), generally resolves with rest. Patient did not mention this while hospitalized, but had mild troponin elevation in hospital and echocardiogram completed showed no significant changes from prior echo in July 2023. [facility], encouraged patient to call office and discuss with custom clothier about ordering new stress test which could potentially be completed her at [facility]. As patient did not have any chest pain today in office and symptoms havebeen ongoing for several months (withunchanged echocardiogram last week), didnot obtainEKG todayin office. Discussed red flag signs for chest pain that would indicate need for immediate evaluation in ED. Attestation Pt seen and examined in concert with Dr. Carl_, agree with history and physical as documented above. Plan reviewed in detail. Any corrections or additions are noted here -agree with plan. Patientpatient had reportedexertionalangina. He did mention this while hospitalized and had spoke with his cardiologistabout this in September. His custom clothier had recommended to monitor. Hehad a workup in the hospital with an echo which was essentially stable. He has an appointment next week with his custom clothier. We had recommended following up with the ER with any worsening signsor symptoms. He should continue his Eliquis. Continue the aspirin. New prescription for omeprazole. Will hold on colonoscopy/EGD due to recent TIAand do not want to pause his Eliquis. He has a follow-up with neurology pending. Continue current medications. Return to the office as scheduled or sooner as needed. Problem List/Past Medical History Ongoing Arthritis of lumbar spine Atherosclerosis of [place] coronary artery Atrial fibrillation BPH (benign prostatic hyperplasia) Chronic renal insufficiency, stage III (moderate) Colon polyps GERD (gastroesophageal reflux disease) History of shingles Hypertension Impaired fasting glucose Lumbar back pain Lumbar disc disease with radiculopathy Ophthalmic migraine TIA (transient ischemic attack) Procedure/Surgical History Stress testing using pharmacologic-induced stress| Service Date: tress test ECG - treadmill| Service Date: 2021TURP - Transurethral resection of prostate| Service Date: 2017Colonoscopy| Service Date: 11/28/2013PT W/ CORONARY ARTERY STENT| Service Date: PPENDECTOMYREMOVAL OF TONSILSCataract extractionINCISE EXTERNAL HEMORRHOID Medications apixaban(Eliquis 5 mg oral tablet), 5 mg= 1 tab, PO, bid, 3 refills apixaban(Eliquis 5 mg oral tablet), 5 mg= 1 tab, PO, bid, 3 refills apixaban(Eliquis 5 mg oral tablet), 5 mg= 1 tab, PO, bid, 3 refills ascorbic acid(ascorbic acid 500 mg oral tablet), 500 mg= 1 tab, PO, Daily atorvastatin(atorvastatin 40 mg oral tablet), 40 mg= 1 tab, PO, qhs finasteride(finasteride 5 mg oral tablet), 5 mg= 1 tab, PO, Daily isosorbide mononitrate(isosorbide mononitrate 60 mg oral tablet, extended release), 60 mg= 1 tab, PO, qAM losartan(losartan 50 mg oral tablet), 50 mg= 1 tab, PO, Daily metoprolol(metoprolol succinate 100 mg oral tablet, extended release), 100 mg= 1 tab, PO, Daily nitroglycerin(nitroglycerin 0.4 mg sublingual tablet), 0.4 mg= 1 tab, SL, q5min, PRN omeprazole(omeprazole 40 mg oral delayed release capsule), 40 mg= 1 cap, PO, Daily, 11 refills omeprazole(omeprazole 20 mg oral delayed release capsule), 20 mg= 1 cap, PO, Daily tamSULOsin(tamsulosin 0.4 mg oral capsule), 0.4 mg= 1 cap, PO, Daily ubiquinone(Coenzyme Q10 200 mg oral capsule) zinc gluconate(zinc (as gluconate) 50 mg oral tablet) Allergies penicillinHeadache Social History Smoking Status Never smoked cigarettes Tobacco Use:Former smoker Smokeless tobacco use:Former smokeless tobacco user, quit more than 1 year ago Stopped at age:43Years Family History Alzheimer disease: Mother and Sister. Heart attack: Father. Heart disease: Father. Health Status Family Member(s) Immunizations Vaccine Date Status tetanus/diphtheria/pertuss, acel (Tdap) 05/12/2023 Recorded Comments : 2023-10-06: Historical information-source unspecified SARS-CoV-2 (COVID-19) mRNA-1273 vaccine 08/30/2021 Recorded Comments : 2023-10-06: Historical information-source unspecified SARS-CoV-2 (COVID-19) mRNA-1273 vaccine 12/12/2020 Recorded Comments : 2023-10-06: Historical information-source unspecified SARS-CoV-2 (COVID-19) mRNA-1273 vaccine 11/14/2020 Recorded Comments : 2023-10-06: Historical information-source unspecified zoster vaccine, inactivated 07/26/2019 Recorded Comments : 2023-10-06: Historical information-source unspecified zoster vaccine, inactivated 04/06/2019 Recorded Comments : 2023-10-06: Historical information-source unspecified pneumococcal 13-valent vaccine 02/19/2015 Recorded Comments : 2023-10-06: Historical information-source unspecified Recommendations Health Maintenance Pending(in the next year) OverDue Adult Influenza Vaccine due04/10/23and every 1year Due Adult COVID-19 Vaccination due03/16/24Unknown Frequency Adult Social Determinants of Health Screening due03/16/24Unknown Frequency Medicare Annual Wellness Visit due03/16/24and every 1year Pneumococcal Vaccine Older Adults due03/16/24One-time only Satisfied(in the past 1 year) Satisfied Adult Tdap/Td Vaccine on05/12/23.Satisfied by DO Carl Paige M Body Mass Index on08/07/23.Satisfied by ALETHA Yanes Stacey Electronic Signature on File Electronically Reviewed/Signed by: Maddison Carl Author Signature Dt/Tm:03/16/2024 11:40 PM Resident Department of Family Medicine Electronically Reviewed/Signed by: DO Robel Leslie Signature Dt/Tm: 03/17/2024 08:28 AM Department of Family Medicine PMW Patient Care team information Care Team Personnel Name: DO Carl Paige M Position: Resident Member Role: Primary Care Provider Address: Address: [address] [place] [address] [place] [address] [place] Care Team Related Persons Name: GERMANIA OSPINA Address: home [address] [place] [address] DR. MARINA MONAE, [id number]"
--- NOTE | 2024-03-19 18:33 | Discharge Summary ---
Discharge Summary Date of Service March 19, 2024 Principal Dx & Hospital Course #1 = Principal Diagnosis (1) TIA (transient ischemic attack): Patient presented with left arm numbness 03/18/24, initially felt that this may have been due to sleeping on his arm in a funny position, however sensory disturbance continued through the day which concerned the patient. - Recently discharged from [facility] on 03/10/2024 for probable TIA. Eliquis resumed, aspirin added at that time. - Echo 03/10/2024: EF = 55-60%. No thrombus or other significant abnormalities, no change with previous study done in July 2023. - Vit B1 and B12 WNL on 03/10. - Lyme negative on 03/10; patient denies rashes/tick bites. - No leukocytosis, afebrile on admission. - Repeat CTA of head and neck on admission were unremarkable. - Repeat brain MRI on admission was unchanged from previous study done 03/09/2024. No evidence of new or interval bleeding from previously identified right parietal lobe cavernoma, no evidence of acute infarct. No evidence of acute or subacute stroke, no evidence of hemorrhage. 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 -- Per neurology, "Although the right parietal lobe cavernoma adjacent to the cortex does not appear to have bled recently, this abnormality should be monitored periodically as he requires long-term treatment with Eliquis. This patient's cavernoma could potentially increase the risk for focal onset seizures. However, his clinical presentation does not seem highly suggestive of a recent focal sensory seizure. Would consider obtaining an outpatient EEG. If this cavernoma were to prove symptomatic going forward, would recommend neurosurgical consultation." - Discontinued Aspirin 81 mg daily 03/19/24 due to right parietal cavernoma and gastritis. Continue Eliquis for A-fib. - Neurology consulted, appreciate recommendations. -- [place] as though this was not TIA, more likely due to cervical radiculopathy. -- Cervical spine MRI obtained for further assessment of possible cervical radiculopathy as an explanation for his current presentation. Formal read pending. Follow-up with PCP. -- Recommend outpatient EMG of the left upper limb. -- Consider outpatient EEG as cavernoma could potentially increase the risk for focal onset seizures, although his clinical presentation does not seem highly suggestive of a recent focal sensory seizure. - Atorvastatin increased to 80 mg daily to follow current stroke guidelines for secondary stroke risk reduction. Patient's most recent LDL was 103, goal less than 70. - Recommend follow-up appointment with Dr. De Leon or 1 of neurology's LIZET's. (2) Dyslipidemia: Atorvastatin increased to 80 mg daily (3) Afib: Continue Eliquis, metoprolol (4) HTN (hypertension): Continue isosorbide mononitrate and losartan Plan CODE STATUS: Full code Notes For Next Care Provider Neurology felt as though this event was due to cervical radiculopathy more than another TIA. Cervical spine MRI obtained, however formal read still pending. Follow-up results with PCP. Recommend outpatient EMG of the left upper limb. Recommend follow-up appointment with Dr. Faustin 1 of neurology's LIZET's. Medication Changes From Visit Atorvastatin increased to 80 mg daily. Discontinued aspirin due to right parietal lobe cavernoma and gastritis. Admission HPI Per Admitting Provider Ededwin is an 78-year-old male with PMH of TIA, HTN, BPH, A-fib with RVR (on Eliquis), left TKA, strokelike symptoms, TIA, dyslipidemia, and CAD with ROLAND. He presented for strokelike symptoms (left-sided arm numbness) upon waking the morning of 03/18. He initially got up and thought he might have slept on his arm funny, but then the numbness progressed throughout the day. No tingling. No slurred speech, facial droop, or unilateral deficits. Patient then began developed a brain fog and believes he had some chest pain while riding in the car. He describes the chest pain as "pressure" across the middle of his chest; 3/10 at worst. This pressure lasted for several minutes. He does note that he sometimes confuses his GERD symptoms for angina. He denies recently doing any strenuous activity or pulling any muscles. He was feeling slightly confused whi le grocery shopping today, and so he decided to come back to the ED as he was told to return to the ED if he should develop any symptoms similar to his TIA from the week prior. Patient took all of his regular morning medications today; only recent change in medication was that he doubled his omeprazole dosing. He replies good compliance with taking his aspirin. No sick contacts. He denies any recent falls, fainting, or injuries to the head or neck. Besides a TIA last week, he has not had no prior history of CVAs. Patient denies smoking, tobacco use, alcohol use. He is bradycardic at 50 bpm at time of admission; vitals otherwise stable. ED course: ROS: Patient endorses left arm numbness, brain fog, generalized weakness, headache yesterday evening, and chronic neck pain. Patient denies fever, chills, night-sweats, body aches, rashes, tick bites, slurred speech, facial droop, unilateral deficits, changes in vision, chest pain, pleuritic CP, SOB, cough, abdominal pain, N/V/D, or numbness/tingling in face, legs, or right arm. Admission Exam Per Admitting Provider General: no acute distress; non-toxic appearing; well-nourished; cooperative HEENT: normocephalic, atraumatic; no scleral icterus; PERRLA w/ EOMs intact; moist mucus membrane; vision and hearing grossly intact; sensation in the face is intact and symmetric assessed at 3 separate dermatomes via light touch; patient demonstrates ability to smile, frown, and lift eyebrows bilaterally without deficits Neck: supple; no lymphadenopathy; trachea midline; patient demonstrates ability to shrug shoulders against resistance without pain Skin: warm, dry without signs of tenting; no cyanosis; no rashes, bruising, lesions, or erythema noted CV: chest wall NTP; irregularly irregular rhythm bradycardic at 50 bpm; potential 2/6 systolic ejection murmur auscultated at the second ICS MCL; pulses intact and symmetric at radial, DP, and PT Lungs: no acute respiratory distress; symmetrical chest wall expansion; clear breath sounds across all lung londono w/o adventitious sounds; no wheezing ABD: Soft, NTP; BS present; no rebound/guarding; no distention MSK: no tics or fasciculations; no edema noted in the LEs b/l, nonerythematous; 5/5 valve inspector strength bilaterally; patient demonstrates ability to wiggle toes, plantarflex/dorsiflex ankles with symmetric strength Neuro: A&Ox3; normal mood and affect; fluent speech; no focal deficits; no facial droop; sensation grossly intact in the LEs b/l; negative pronator drift Discharge Exam General: No acute distress, nondiaphoretic, well-developed, well-nourished. Skin: The skin was without rashes, erythema, edema, or bruising. Cardiac: Irregularly irregular. 2/6 systolic murmur. Pulm: Clear to auscultation bilaterally without wheezes, rales or rhonchi. Abdominal: Soft, nontender to palpation. Bowel sounds present. No distention, no rebound/guarding. Neuro: A&O x3. No focal neurological deficits. Updated Medication List Medication Instructions Recorded Confirmed Type finasteride 5 mg tablet 5 mg PO QAM 07/25/23 03/18/24 History isosorbide mononitrate 60 mg 120 mg PO QAM 07/25/23 03/18/24 History tablet,extended release 24 hr losartan 50 mg tablet 50 mg PO HS 07/25/23 03/18/24 History tamsulosin 0.4 mg capsule 0.4 mg PO HS 07/25/23 03/18/24 History ascorbic acid (vitamin C) 500 mg 500 mg PO QAM 03/09/24 03/18/24 History tablet cholecalciferol (vitamin D3) 125 125 mcg PO QAM 03/09/24 03/18/24 History mcg (5,000 unit) tablet (Vitamin D3) coenzyme Q10 100 mg capsule (Co 100 mg PO M 03/09/24 03/18/24 History Q-10) metoprolol succinate 100 mg 100 mg PO QAM 03/09/24 03/18/24 History tablet,extended release 24 hr nitroglycerin 0.4 mg sublingual 0.4 mg sublingual UD PRN Chest Pain 03/09/24 03/18/24 History tablet zinc acetate 50 mg (zinc) capsule 50 mg PO QAM 03/09/24 03/18/24 History apixaban 5 mg tablet (Eliquis) 5 mg PO BID 30 days #60 tabs 03/10/24 03/18/24 Rx omeprazole 40 mg capsule,delayed 40 mg PO QAM 03/18/24 03/18/24 History release atorvastatin 40 mg tablet 80 mg (2 x 40 mg) PO HS #30 tabs 03/19/24 Rx Hospital Stay Data Consultations 03/18/24 14:44 ED Decision to Admit Stat 03/18/24 16:29 Consult Neurology Routine 03/18/24 20:30 Consult [facility] technical marketing consultant Routine Diagnostic Imagining Performed 03/18/24 12:34 CT angio head w con Stat CT angio neck with con Stat CT head/brain wo con Stat 03/18/24 16:29 MR brain wo con Routine 03/19/24 10:16 MR cervical spine wo con Routine Pending Results Patient Have Any Pending Studies at Discharge: No Discharge Instructions Given to Patient (Per Discharging Provider) Mr. Villalba, You were admitted to the hospital for further workup of your left arm numbness. You had a repeat CTA scan of your head and neck which were unremarkable, as well as a repeat brain MRI which was unchanged from the MRI on 03/09. You were seen by neurology while in the hospital, who felt that this was NOT another TIA, but more likely radiculopathy. You had an MRI of your cervical spine, however, the formal read from radiology is still pending. These results can be followed up with your PCP. Additionally, there have been some medication changes as listed below. Upon discharge from the hospital: * Stop taking aspirin 81 mg. This is because of the right-sided parietal cavernoma in your brain as well as gastritis (inflammation of your stomach) which are at increased risk of bleeding. * Increase atorvastatin to 80 mg daily. This high intensity dose is recommended for secondary stroke risk reduction. * Continue taking Eliquis as prescribed for A-fib. * Follow-up with your PCP to discuss the results of your cervical spine MRI as well as to see how you are tolerating the increased dose of atorvastatin. Their office will call you with an appointment date and time. * Follow-up with neurology outpatient. Their office will call you with an appointment date and time. * Continue all other home medications as prescribed. Please return to the hospital if you experience any of the following: Weakness/tingling/ loss of feeling on one side of your face/body, sudden double vision or trouble seeing in 1 or both eyes, sudden trouble talking or slurring your speech, trouble understanding what other people are speaking, sudden/severe headache, dizziness, loss of balance, passing out, seizure, shortness of breath, difficulty breathing, or chest pain. B.E.F.A.S.T. is an easy way to remember the signs of stroke. When you see these signs, you know that you need to call 911 fast. B.E. F.A.S.T. stands for: * B is for balance. Sudden loss of balance or coordination. * E is for eyes. Vision changes in one or both eyes. * F is for face drooping. One side of the face is drooping or numb. When the person smiles, the smile is uneven. A is for arm weakness. One arm is weak or numb. When the person lifts both arms at the same time, one arm may drift downward. * S is for speech difficulty. You may notice slurred speech or trouble speaking. The person can't repeat a simple sentence correctly when asked. * T is for time to call 911. If someone shows any of these symptoms, even if they go away, call 911 right away. Make note of the time the symptoms first appeared. It was a pleasure taking care of you while you were in the hospital, Emy Canela PA-C Total Time Total Time Spent Total Time Spent (In Minutes): Greater than 30 minutes spent completing this discharge process including direct patient care, medication reconciliation, documentation, review of labs and images, and coordination of care. Coding Level of Care Code 86093 INP/OBS DISCH >30 MIN Diagnoses TIA (transient ischemic attack) G45.9 Dyslipidemia E78.5 Afib I48.91 HTN (hypertension) I10 Hypertension type: unspecified
== END 2024-03-19 15:28 | disposition home or self-care (01) ==
LOC: ED 12:13 → 2N 12:13 → SUATTDRO 16:53 → 2N 18:31